=== PATIENT | female | born 1960 | race African-American/Black ===

== ENCOUNTER 2016-03-17 04:47 | Emergency (ER) | payer OTHER ==
[~2016-03-17] VITALS: Ht 167.6 cm; Wt 127.0 kg
[~2016-03-17 04:47] MED LIST: IBUPROFEN600 MG ORAL
[2016-03-17] MEDS ORDERED: ALBUTEROL2.5 MG/3 M INH (04:57)
[2016-03-17 05:00] VITALS: BP 130/82
[2016-03-17] MEDS ORDERED: Bacitracin Oint UD TOPIC ONE (05:15)
[2016-03-17] MEDS ORDERED: TdaP Vaccine 0.5ml Syr IM ONE (05:15)
[2016-03-17] MEDS ORDERED: DOXYCYCLINE MO100 MG ORAL (05:27)
[2016-03-17] MEDS ORDERED: IBUPROFEN600 MG ORAL (05:27)
--- NOTE | 2016-03-17 05:27 | Emergency Room Report ---
History of Present Illness General Chief Complaint: Laceration Source: Patient Present Illness HPI This is a 55-year-old female presents with laceration to the right foot. She was helping her friend out with putting Orajel in the mouth. She was walking across the floor and her foot slipped on the laminate floor. For some reason there was a nail sticking out and she sustained a puncture wound to the sole of the foot. It was bleeding. Tender to walking. No other complaint. No foreign body. Allergies: Coded Allergies: No Known Allergies (Unverified , 03/17/16) Patient History Past Medical History: see triage record, old chart reviewed Past Surgical History: other Pertinent Family History: none Social History: Denies: drug use Last Menstrual Period: n/a Now: No Immunizations: other Reviewed Nursing Documentation: PMH: Agreed, PSxH: Agreed Nursing Documentation-PMH Past Medical History: No History, Except For Hx Hypertension: Yes Hx Asthma: Yes Review of Systems Eye: Denies: blurred vision, eye pain ENT: Denies: ear pain, nose congestion, throat swelling Respiratory: Denies: cough, shortness of breath Cardiovascular: Denies: chest pain, palpitations Gastrointestinal: Denies: abdominal pain, diarrhea, nausea, vomiting Musculoskeletal: Denies: back pain, joint pain Skin: Denies: rash Neurological: Denies: headache, numbness Endocrine: Denies: increased thirst, increased urine Hematologic/Lymphatic: Denies: easy bruising All Other Systems: negative except mentioned in HPI Physical Exam Vital Signs Date Time Temp Pulse Resp B/P Pulse Ox O2 Delivery O2 Flow Rate FiO2 03/17/16 04:48 97.3 99 16 133/85 99 Room Air vitals normal Sp02 EP Interpretation: reviewed, normal General Appearance: well appearing, no apparent distress, alert Head: normocephalic, atraumatic Eyes: bilateral eye EOMI, bilateral eye PERRL ENT: hearing grossly normal, normal pharynx Neck: full range of motion, supple, no meningismus Respiratory: chest non-tender, lungs clear, normal breath sounds Cardiovascular #1: regular rate, rhythm, no murmur Gastrointestinal: normal bowel sounds, non tender, no mass, no organomegaly, no bruit, non-distended Musculoskeletal: back normal, normal range of motion, other - Puncture wound to the sole of the right foot over the ball. No foreign body. No active bleeding. Neurologic: alert, oriented x3 Psychiatric: mood/affect normal Skin: warm/dry Medical Decision Making Diagnostic Impression: Primary Impression: Puncture wound of foot, right Qualified Codes: S91.331A - Puncture wound without foreign body, right foot, initial encounter Additional Impression: Morbid obesity with BMI of 50.0-59.9, adult ER Course Patient present as with a puncture wound to the sole of her right foot. She was walking barefoot when this happened. Increased risk for infection. We'll put on antibiotics. Tetanus updated. No foreign body. No tendon laceration. Last Vital Signs Date Time Temp Pulse Resp B/P Pulse Ox O2 Delivery O2 Flow Rate FiO2 03/17/16 04:48 97.3 99 16 133/85 99 Room Air Status: improved Disposition: HOME, SELF-CARE Condition: Stable Scripts Doxycycline Monohydrate* (DOXYCYCLINE MONOHYDRATE*) 100 Mg Capsule 100 MG ORAL Q12H, #14 CAP 0 Refills Prov: MAGGIE BURRELL M.D. 03/17/16 Ibuprofen* (MOTRIN*) 600 Mg Tablet 600 MG ORAL THREE TIMES A DAY, #30 TAB 0 Refills Prov: MAGGIE BURRELL M.D. 03/17/16 Patient Instructions: Nonsutured Laceration Care Additional Instructions: Keep the wound clean. Followup with your DrAniya in 7 days. Return if symptom worsen. MAGGIE BURRELL M.D. Mar 17, 2016 05:27
[2016-03-17 05:45] VITALS: BP 130/82
== END 2016-03-17 05:45 | disposition home or self-care (01) ==
LOC: EMR 05:15
DX: S91.331A Puncture wound without foreign body, right foot, initial encounter (principal); W01.0XXA Fall on same level from slipping, tripping and stumbling without subsequent striking against object, initial encounter; Y92.89 Other specified places as the place of occurrence of the external cause; Z23 Encounter for immunization; E66.01 Morbid (severe) obesity due to excess calories; Z68.42 Body mass index [BMI] 45.0-49.9, adult; I10 Essential (primary) hypertension; J45.909 Unspecified asthma, uncomplicated
CPT/HCPCS: 90471; 90715; 99284

== ENCOUNTER 2016-04-14 14:28 | Emergency (ER) | payer OTHER ==
[~2016-04-14] VITALS: Ht 170.2 cm; Wt 127.0 kg
[~2016-04-14 14:28] MED LIST changes: +ALBUTEROL2.5 MG/3 M INH; +DOXYCYCLINE MO100 MG ORAL
[2016-04-14 14:52] VITALS: BP 142/94
--- NOTE | 2016-04-14 15:29 | Emergency Room Report ---
History of Present Illness General Chief Complaint: Wound Recheck/Suture Removal Source: Medical Record Present Illness HPI 55 YO female presents to the ED c/o Foot puncture wound x 1 month that has not healed, with continued pain. pain is 10/10 in severity and exacerbated with walking. Patient denies new injury or trauma. Patient denies history of diabetes. Patient denies bleeding, erythema or discharge. Patient is up-to- date with tetanus vaccination.Denies numbness tingling or loss of sensation or gross motor movements of the extremities, incontinence of bowel or bladder. Denies CP, Palpitations, LOC, AMS, dizziness, Changes in Vision, Sensation, paresthesias, or a sudden severe headache. Allergies: Coded Allergies: No Known Allergies (Unverified , 03/17/16) Patient History Past Medical History: see triage record Past Surgical History: none Pertinent Family History: none Now: No Immunizations: UTD Reviewed Nursing Documentation: PMH: Agreed, PSxH: Agreed Nursing Documentation-PMH Past Medical History: No History, Except For Hx Hypertension: Yes Hx Asthma: Yes Review of Systems All Other Systems: negative except mentioned in HPI Physical Exam Vital Signs Date Time Temp Pulse Resp B/P Pulse Ox O2 Delivery O2 Flow Rate FiO2 04/14/16 14:40 97.5 126 21 142/94 96 Room Air Sp02 EP Interpretation: reviewed, normal General Appearance: no apparent distress, alert, GCS 15, non-toxic Head: normocephalic, atraumatic Eyes: bilateral eye PERRL, bilateral eye normal inspection ENT: hearing grossly normal, normal pharynx, no angioedema, normal voice Neck: full range of motion, supple/symm/no masses Respiratory: chest non-tender, lungs clear, normal breath sounds, speaking full sentences Cardiovascular #1: regular rate, rhythm, no edema Musculoskeletal: back normal, gait/station normal, normal range of motion, no calf tenderness, tender - TTP to plantar aspect of right foot. Neurologic: alert, oriented x3, responsive, motor strength/tone normal, sensory intact, speech normal Psychiatric: judgement/insight normal, memory normal, mood/affect normal, no suicidal/homicidal ideation Skin: normal color, no rash, warm/dry, well hydrated, other - puncture wound with scar tissue formation with possible retained fb. no d/c, no erythema noted. moderate ttp. palpable induration approximately 1cm in size Lymphatic: no adenopathy Procedures Incision and Drainage Incision and Drainage : Consent: Verbal Site: plantar aspect of the right foot Blade Size: 11 I & D Procedure: betadine prep Wound Location: lower extremity - right foot Wound's Depth, Shape: superficial Wound Length (cm): 1 Wound Explored: foreign body removed - 1.3 cm triangular piece of glass was removed Irrigated w/ Saline (ccs): 40 Splint Applied?: No Sling Applied?: No Patient Tolerated: Well Complications: None Progress BACITRACIN WAS APPLIED WITH STERILE DRESSING, PT PROVIDED WITH CRUTCHES. Medical Decision Making PA Attestation Dr. Wilson is my supervising Physician whom patient management has been discussed with. Diagnostic Impression: Primary Impression: Residual foreign body in soft tissue ER Course Pt. presents to the ED c/o Foot puncture wound x 1 month that has not healed, with continued pain. Ddx considered but are not limited to Ulcer, FB, puncture wound, cellulitis Vital signs: are WNL, pt. is afebrile H&PE are most consistent with retained soft tissue FB. ORDERS: - X-ray right foot 2 views - negative for fx, Dislocation, or significant soft tissue injury, POSITIVE for obvious FB- per preliminary read in ED by Dr. Wilson ED INTERVENTIONS: - 7.5mg [place] PO - FB Removal: 1.3 cm triangular piece of glass was removed. pt. tolerated well, there were no complications. -Bacitracin and sterile dressing is applied. - Pt is provided with crutches. DISCHARGE: At this time pt. is stable for d/c to home. Will provide printed patient care instructions, and any necessary prescriptions. Care plan and follow up instructions have been discussed with the patient prior to discharge. Last Vital Signs Date Time Temp Pulse Resp B/P Pulse Ox O2 Delivery O2 Flow Rate FiO2 04/14/16 14:52 97.5 126 21 142/94 96 Room Air Disposition: HOME, SELF-CARE Condition: Stable Scripts Acetaminophen* (TYLENOL EXTRA STRENGTH*) 500 Mg Tablet 500 MG ORAL Q8H, #30 TAB 0 Refills Prov: Ghada Wakefield P.A. 04/14/16 Cephalexin* (KEFLEX*) 500 Mg Capsule 500 MG ORAL EVERY 12 HOURS for 7 Days, #14 CAP 0 Refills Prov: Ghada Wakefield P.A. 04/14/16 Referrals: IVON BURT (PCP) Patient Instructions: Sliver Removal, Care After Additional Instructions: Take medications as directed. Follow up with PCP in 3-5 days Return sooner to ED if new symptoms occur, or current symptoms become worse. Ghada Wakefield Apr 14, 2016 15:29
[2016-04-14] MEDS ORDERED: Norco 7.5mg/325mg tab ORAL ONE (16:00)
[2016-04-14] MEDS ORDERED: Bacitracin Oint UD TOPIC ONE (16:15)
[2016-04-14] MEDS ORDERED: CEPHALEXIN500 MG ORAL (16:16)
[2016-04-14] MEDS ORDERED: TYLENOL EXTRA500 MG ORAL (16:16)
[2016-04-14 16:30] VITALS: BP 105/75
--- NOTE | 2016-04-14 16:31 | Diagnostic Imaging Report ---
Indication: PAIN Technique: 3 views right foot Comparison: none Findings: Wedge-shaped foreign body is seen dorsal and medial to the neck of the second metatarsal. No evidence of bony destruction. No acute fractures. No dislocations the joint spaces are preserved. Impression: Positive for foreign body Findings phoned to nurse practitioner Ghada Wakefield in the emergency room at the time of interpretation
== END 2016-04-14 16:30 | disposition home or self-care (01) ==
LOC: EMR 15:20
DX: M79.5 Residual foreign body in soft tissue (principal); I10 Essential (primary) hypertension; J45.909 Unspecified asthma, uncomplicated
CPT/HCPCS: 99284

== ENCOUNTER 2016-05-27 18:06 | Emergency (ER) | payer OTHER ==
[~2016-05-27] VITALS: Ht 170.2 cm; Wt 127.0 kg
[~2016-05-27 18:06] MED LIST changes: +CEPHALEXIN500 MG ORAL; +TYLENOL EXTRA500 MG ORAL
[2016-05-27 18:44] VITALS: BP 135/39
[2016-05-27 19:35] LABS: BASOPHILS % (AUTO) 1.6 % (0.0-2.0); EOSINOPHILS % (AUTO) 1.9 % (0.0-3.0); LYMPHOCYTES % (AUTO) 24.8 % (20.0-45.0); MEAN CORPUSCULAR HEMOGLOBIN 29.2 PG (27.0-31.0); MEAN CORPUSCULAR HGB CONC 34.1 G/DL (32.0-36.0); MEAN CORPUSCULAR VOLUME 86 FL (80-99); MEAN PLATELET VOLUME 8.8 FL (6.5-10.1); MONOCYTES % (AUTO) 9.2 % (1.0-10.0); NEUTROPHILS % (AUTO) 62.5 % (45.0-75.0); PLATELET COUNT 171 K/UL (150-450); RED BLOOD COUNT 4.73 M/UL (4.20-5.40); RED CELL DISTRIBUTION WIDTH 12.6 % (11.6-14.8); WHITE BLOOD COUNT 7.9 K/UL (4.8-10.8)
[2016-05-27 19:54] LABS: ALANINE AMINOTRANSFERASE 26 U/L (3-33); ALBUMIN/GLOBULIN RATIO 0.9 (1.0-2.7); ANION GAP 14 (5-15); ASPARTATE AMINO TRANSFERASE 29 U/L (5-40); CALCIUM 8.8 mg/dL (8.6-10.2); CARBON DIOXIDE 25 mEQ/L (20-30); CHLORIDE 99 mEQ/L (98-107); CREATININE 1.1 mg/dL (0.5-0.9); GLOMERULAR FILTRATION RATE > 60 mL/min (>60); HEMOLYSIS 8; POTASSIUM 4.1 mEQ/L (3.4-4.9); SODIUM 138 mEQ/L (135-145); TOTAL PROTEIN 8.4 g/dL (6.6-8.7); TROPONIN I < 0.30 ng/mL (<=0.30)
--- NOTE | 2016-05-27 19:54 | Emergency Room Report ---
History of Present Illness General Chief Complaint: General Complaint Source: Patient Present Illness HPI Patient is a 55-year-old female who presented after having increased difficulty breathing and altered mental status. The patient gradual onset of symptoms. The patient was noted to haveNonproductive cough. Patient states that she had been having some difficulty swallowing. Allergies: Coded Allergies: No Known Allergies (Unverified , 03/17/16) Patient History Last Menstrual Period: 04/17/16 Now: No Reviewed Nursing Documentation: PMH: Agreed, PSxH: Agreed Nursing Documentation-PMH Past Medical History: No History, Except For Hx Hypertension: Yes Hx Asthma: Yes Review of Systems All Other Systems: negative except mentioned in HPI Physical Exam Vital Signs Date Time Temp Pulse Resp B/P Pulse Ox O2 Delivery O2 Flow Rate FiO2 05/27/16 18:22 98.4 120 30 135/39 96 Room Air Sp02 EP Interpretation: reviewed, normal General Appearance: normal inspection, alert, mild distress, obese Head: atraumatic ENT: normal ENT inspection, hearing grossly normal, normal voice Neck: normal inspection, full range of motion, supple, no bony tend Respiratory: no retraction, accessory muscle use, wheezing Cardiovascular #1: regular rate, rhythm, no edema Gastrointestinal: normal inspection, normal bowel sounds, non tender, soft, no guarding, no hernia Genitourinary: no CVA tenderness Musculoskeletal: normal inspection, back normal, normal range of motion Neurologic: normal inspection, alert, responsive, other - slow speech Psychiatric: normal inspection, judgement/insight normal, mood/affect normal Skin: normal inspection, normal color, no rash Medical Decision Making Diagnostic Impression: Primary Impression: Viral respiratory illness Additional Impressions: Tachycardia Dehydration ER Course Patient presented for altered mental status. Differential diagnosis included but was not limited to ischemic stroke, subarachnoid hemorrhage, hypoglycemia, spinal cord injury, neurodegenerative disorder, urinary tract infection, hypoxemia.Because of complexity of patient's case laboratory testing and imaging studies were ordered. Laboratory testing showed some evidence of urinary tract infection. The patient noted to have a rapid respiratory rate.The patient was noted to have chest x-ray one view interpreted by me with hypoventilatory film. There is no definite infiltrate. Laboratory testing was notable for normal white blood count. The patient was discussed with Dr. sheldon WHITAKER who agreed to see the patient transfer to [facility] patient gradual improvement in her mental status while in emergency department. At the time of transfer patient appeared to be able to maintain her own airway patient was noted to have some improvement in her mental status and was able to talk normally. Labs Test 05/27/16 19:02 05/27/16 20:08 White Blood Count 7.9 K/UL (4.8-10.8) Red Blood Count 4.73 M/UL (4.20-5.40) Hemoglobin 13.8 G/DL (12.0-16.0) Hematocrit 40.6 % (37.0-47.0) Mean Corpuscular Volume 86 FL (80-99) Mean Corpuscular Hemoglobin 29.2 PG (27.0-31.0) Mean Corpuscular Hemoglobin Concent 34.1 G/DL (32.0-36.0) Red Cell Distribution Width 12.6 % (11.6-14.8) Platelet Count 171 K/UL (150-450) Mean Platelet Volume 8.8 FL (6.5-10.1) Neutrophils (%) (Auto) 62.5 % (45.0-75.0) Lymphocytes (%) (Auto) 24.8 % (20.0-45.0) Monocytes (%) (Auto) 9.2 % (1.0-10.0) Eosinophils (%) (Auto) 1.9 % (0.0-3.0) Basophils (%) (Auto) 1.6 % (0.0-2.0) Sodium Level 138 mEQ/L (135-145) Potassium Level 4.1 mEQ/L (3.4-4.9) Chloride Level 99 mEQ/L (98-107) Carbon Dioxide Level 25 mEQ/L (20-30) Anion Gap 14 (5-15) Blood Urea Nitrogen 13 mg/dL (7-23) Creatinine 1.1 mg/dL (0.5-0.9) Estimat Glomerular Filtration Rate > 60 mL/min (>60) Glucose Level 96 mg/dL (74-106) Lactic Acid Level 1.20 mmol/L (0.66-2.22) Calcium Level 8.8 mg/dL (8.6-10.2) Total Bilirubin 0.3 mg/dL (0.0-1.2) Aspartate Amino Transf (AST/SGOT) 29 U/L (5-40) Alanine Aminotransferase (ALT/SGPT) 26 U/L (3-33) Alkaline Phosphatase 108 U/L (35-104) Total Creatine Kinase 140 U/L (26-140) Creatine Kinase MB < 1.5 ng/mL (< 3.8) Creatine Kinase MB Relative Index 1.0 Troponin I < 0.30 ng/mL (<=0.30) Pro-B-Type Natriuretic Peptide 17 pg/mL (0-125) Total Protein 8.4 g/dL (6.6-8.7) Albumin 4.1 g/dL (3.5-5.2) Globulin 4.3 g/dL Albumin/Globulin Ratio 0.9 (1.0-2.7) Serum Alcohol < 10 mg/dL Urine Color Yellow Urine Appearance Slightly cloudy Urine pH 6 (4.5-8.0) Urine Specific [place] 1.020 (1.005-1.035) Urine Protein 1+ (NEGATIVE) Urine Glucose (UA) Negative (NEGATIVE) Urine Ketones Negative (NEGATIVE) Urine Occult Blood 2+ (NEGATIVE) Urine Nitrite Negative (NEGATIVE) Urine Bilirubin Negative (NEGATIVE) Urine Urobilinogen 1 MG/DL (0.0-1.0) Urine Leukocyte Esterase 1+ (NEGATIVE) Urine RBC 2-4 /HPF (0 - 2) Urine WBC 2-4 /HPF (0 - 2) Urine Squamous Epithelial Cells Moderate /LPF (NONE/OCC) Urine Bacteria None /HPF (NONE) Urine Mucus Few /LPF (NONE/OCC) Urine Opiates Screen Negative (NEGATIVE) Urine Barbiturates Screen Negative (NEGATIVE) Phencyclidine (PCP) Screen Negative (NEGATIVE) Urine Amphetamines Screen Negative (NEGATIVE) Urine Benzodiazepines Screen Positive (NEGATIVE) Urine Cocaine Screen Negative (NEGATIVE) Urine Marijuana (THC) Screen Negative (NEGATIVE) EKG Diagnostic Results Rate: tachycardiac - 114 ST Segments: no acute changes Chest X-Ray Diagnostic Results EP Interpretation: Yes Findings: no consolidation, no effusion, no pneumothorax, no acute cardiopulmonary disease Number of Views: 1 Last Vital Signs Date Time Temp Pulse Resp B/P Pulse Ox O2 Delivery O2 Flow Rate FiO2 05/27/16 18:44 118 30 135/39 96 Room Air 05/27/16 18:22 98.4 Status: improved [facility] Condition: Stable Referrals: KRISTI MERINO (PCP) Reynaldo Wilson May 27, 2016 19:53
[2016-05-27 20:05] LABS: CKMB < 1.5 ng/mL (< 3.8)
[2016-05-27 20:12] VITALS: BP 135/78
[2016-05-27 20:32] LABS: APPEARANCE,URINE SLIGHTLY CLOUDY; KETONES,URINE NEGATIVE (NEGATIVE); LEUKOCYTE ESTERASE ,URINE 1+ (NEGATIVE); NITRITE,URINE NEGATIVE (NEGATIVE); PH,URINE 6 (4.5-8.0); PROTEIN,URINE 1+ (NEGATIVE); UROBILINOGEN,URINE 1 MG/DL (0.0-1.0)
[2016-05-27 20:46] LABS: MUCUS,URINE FEW /LPF (NONE/OCC); SQUAMOUS EPITHELIAL CELL,UR MODERATE /LPF (NONE/OCC)
[2016-05-27 21:27] VITALS: BP 147/74
[2016-05-27 22:16] VITALS: BP 137/88
[2016-05-28 00:16] VITALS: BP 141/85
[2016-05-28] MEDS ORDERED: Albuterol ud Inhalation HHN ONE (02:30)
[2016-05-28 02:41] VITALS: BP 140/81
[2016-05-28 04:41] VITALS: BP 136/68
[2016-05-28 06:41] VITALS: BP 141/71
[2016-05-28 07:30] VITALS: BP 136/76
[2016-05-28 08:05] VITALS: BP 136/76
--- NOTE | 2016-05-28 11:15 | Diagnostic Imaging Report ---
Indication: Dyspnea Comparison: None A single view chest radiograph was obtained. Findings: No definite infiltrate or pulmonary vascular congestion identified. The heart is enlarged. The aorta is mildly enlarged consistent with atherosclerotic vascular disease. The bones are osteopenic. Impression: No acute disease
--- NOTE | 2016-05-30 11:33 | Cardiology Report ---
APPROVED REPORT EKG Measurement Heart [id number] Sinus tachycardia Cannot rule out Anterior infarct, age undetermined Abnormal ECG
== END 2016-05-28 08:05 | disposition short-term general hospital (02) ==
LOC: EMR 18:37
DX: R00.0 Tachycardia, unspecified (principal); B34.9 Viral infection, unspecified; E86.0 Dehydration; I10 Essential (primary) hypertension; J45.909 Unspecified asthma, uncomplicated
CPT/HCPCS: 36415; 71010; 80053; 80300; 81003; 82550; 82553; 83605; 83880; 84484; 85025; 87040; 93005; 94640; 94664; 96360; 99285; G0480; 80329; 96372; 99284

== ENCOUNTER 2016-07-07 15:39 | Emergency (ER) | payer OTHER ==
[~2016-07-07] VITALS: Ht 167.6 cm; Wt 131.5 kg
[2016-07-07 16:57] LABS: BASOPHILS % (AUTO) 2.2 % (0.0-2.0); LYMPHOCYTES % (AUTO) 38.1 % (20.0-45.0); MEAN CORPUSCULAR HEMOGLOBIN 30.4 PG (27.0-31.0); MEAN CORPUSCULAR HGB CONC 35.9 G/DL (32.0-36.0); MEAN CORPUSCULAR VOLUME 85 FL (80-99); MEAN PLATELET VOLUME 8.5 FL (6.5-10.1); MONOCYTES % (AUTO) 6.4 % (1.0-10.0); NEUTROPHILS % (AUTO) 50.3 % (45.0-75.0); PLATELET COUNT 181 K/UL (150-450); RED CELL DISTRIBUTION WIDTH 12.6 % (11.6-14.8); WHITE BLOOD COUNT 5.5 K/UL (4.8-10.8)
[2016-07-07 17:23] LABS: CALCIUM 8.9 mg/dL (8.6-10.2); CREATININE 1.2 mg/dL (0.5-0.9); GLOMERULAR FILTRATION RATE 56.1 mL/min (>60); POTASSIUM 4.1 mEQ/L (3.4-4.9); TOTAL PROTEIN 7.9 g/dL (6.6-8.7); TROPONIN I < 0.30 ng/mL (<=0.30)
[2016-07-07 17:34] LABS: CKMB < 1.5 ng/mL (< 3.8)
--- NOTE | 2016-07-07 18:01 | Emergency Room Report ---
History of Present Illness General Chief Complaint: Edema Source: Patient Present Illness HPI She 5-year-old female presents emergency department complaining of right lateral lower extremity swelling x3 weeks. Patient also reports left thigh/ inguinal area pain x3 days. Patient states she recently began water aerobics and noticed the pain while on the treadmill and she had to leave her class early. Patient states pain is exacerbated with specific movements it is not constant she rates her pain as 5/10 in severity and describes sore achy in character. She denies calf pain she reports some mild medial ankle pain bilaterally denies trauma or fall. Denies erythema, fevers chills nausea vomiting, chest pain. Patient reports recent pneumonia last month. Denies cough. She reports intermittent shortness of breath and states she is normally sedentary other than recently beginning water aerobics 3 days ago. Patient denies recent travel or estrogen replacement. pmhx of glaucoma, and herniated disks in the back, denies HTN, cardiac hx. Denies numbness tingling or loss of sensation or gross motor movements of the extremities, incontinence of bowel or bladder. Denies CP, Palpitations, LOC, AMS, dizziness, Changes in Vision, Sensation, paresthesias, or a sudden severe headache. Allergies: Coded Allergies: No Known Allergies (Unverified , 03/17/16) Patient History Past Medical History: see triage record Past Surgical History: none Pertinent Family History: none Now: No Immunizations: UTD Reviewed Nursing Documentation: PMH: Agreed, PSxH: Agreed Nursing Documentation-PM Past Medical History: No History, Except For Hx Hypertension: Yes Hx Asthma: Yes Review of Systems All Other Systems: negative except mentioned in HPI Physical Exam Vital Signs Date Time Temp Pulse Resp B/P Pulse Ox O2 Delivery O2 Flow Rate FiO2 07/07/16 16:03 97.5 112 20 120/72 95 Room Air Sp02 EP Interpretation: reviewed, normal, abnormal - tachycardic at 112 General Appearance: no apparent distress, alert, GCS 15, non-toxic Head: normocephalic, atraumatic Eyes: bilateral eye PERRL, bilateral eye normal inspection ENT: hearing grossly normal, normal pharynx, no angioedema, normal voice Neck: full range of motion, supple/symm/no masses Respiratory: chest non-tender, lungs clear, normal breath sounds, speaking full sentences Cardiovascular #1: regular rate, rhythm, normal capillary refill, tachycardia, edema - 1+ bilateral pedal edema, Cardiovascular #2: 2+ dorsalis pedis (R), 2+ dorsalis pedis (L) Rectal: deferred Genitourinary: adnexa normal Musculoskeletal: back normal, gait/station normal, normal range of motion, no calf tenderness, tender - proximal left thigh ttp, no appreciable inguinal ttp, pain exacerbated with FROM against resistance. no appreciable medial ankle ttp, no erythema, 1+ pitting edema bilaterally. good capillary refill Neurologic: alert, oriented x3, responsive, motor strength/tone normal, sensory intact, speech normal Psychiatric: judgement/insight normal, memory normal, mood/affect normal, no suicidal/homicidal ideation Skin: normal color, no rash, warm/dry, well hydrated Lymphatic: no adenopathy Medical Decision Making PA Attestation Dr. pollard is my supervising Physician whom patient management has been discussed with. Diagnostic Impression: Primary Impression: Peripheral edema Additional Impression: Muscle strain ER Course She 5-year-old female presents emergency department complaining of right lateral lower extremity swelling x3 weeks. Patient also reports left thigh/ inguinal area pain x3 days. Patient states she recently began water aerobics and noticed the pain while on the treadmill and she had to leave her class early. Patient states pain is exacerbated with specific movements it is not constant she rates her pain as 5/10 in severity and describes sore achy in character. She denies calf pain she reports some mild medial ankle pain bilaterally denies trauma or fall. Denies erythema, fevers chills nausea vomiting, chest pain. Patient reports recent pneumonia last month. Denies cough. She reports intermittent shortness of breath and states she is normally sedentary other than recently beginning water aerobics 3 days ago. Patient denies recent travel or estrogen replacement. pmhx of glaucoma, and herniated disks in the back, denies HTN, cardiac hx. Ddx considered but are not limited to DVT, Cellulitis, CHF, lymphedema, circulatory compromise, peripheral edema, musculo-skeletal injury Vital signs: pt afebrile, however tachycardic. - review of previous visits to the ED pt. is consistently tachycardic. H&PE are most consistent with benign pedal edema and muscle strain. will consider CHF - pt. does not have Cardic RF other than being sedentary/overweight -Good circulation on PE. - Pt. has wells criteria of Zero. ORDERS: -CBC: unremarkable -CMP: unremarkable -Troponin: negative -CK : elevated 221 -CK-MB: unremarkable -BNP: WNL ED INTERVENTIONS: -d/w pt. results of laboratory testing. I do not suspect an emergent condition at this time. with current presentation pt. is stable for close outpatient follow up. D/w pt. that i will rx compression stockings, conservative treatment for muscle strain, and to follow up with her PCP, and to return to ED with new or worsening of symptoms. DISCHARGE: At this time pt. is stable for d/c to home. Will provide printed patient care instructions, and any necessary prescriptions. Care plan and follow up instructions have been discussed with the patient prior to discharge. Labs Test 07/07/16 16:37 White Blood Count 5.5 K/UL (4.8-10.8) Red Blood Count 4.20 M/UL (4.20-5.40) Hemoglobin 12.8 G/DL (12.0-16.0) Hematocrit 35.5 % (37.0-47.0) Mean Corpuscular Volume 85 FL (80-99) Mean Corpuscular Hemoglobin 30.4 PG (27.0-31.0) Mean Corpuscular Hemoglobin Concent 35.9 G/DL (32.0-36.0) Red Cell Distribution Width 12.6 % (11.6-14.8) Platelet Count 181 K/UL (150-450) Mean Platelet Volume 8.5 FL (6.5-10.1) Neutrophils (%) (Auto) 50.3 % (45.0-75.0) Lymphocytes (%) (Auto) 38.1 % (20.0-45.0) Monocytes (%) (Auto) 6.4 % (1.0-10.0) Eosinophils (%) (Auto) 3.0 % (0.0-3.0) Basophils (%) (Auto) 2.2 % (0.0-2.0) Sodium Level 139 mEQ/L (135-145) Potassium Level 4.1 mEQ/L (3.4-4.9) Chloride Level 97 mEQ/L (98-107) Carbon Dioxide Level 26 mEQ/L (20-30) Anion Gap 16 (5-15) Blood Urea Nitrogen 15 mg/dL (7-23) Creatinine 1.2 mg/dL (0.5-0.9) Estimat Glomerular Filtration Rate 56.1 mL/min (>60) Glucose Level 98 mg/dL (74-106) Calcium Level 8.9 mg/dL (8.6-10.2) Total Bilirubin 0.3 mg/dL (0.0-1.2) Aspartate Amino Transf (AST/SGOT) 31 U/L (5-40) Alanine Aminotransferase (ALT/SGPT) 25 U/L (3-33) Alkaline Phosphatase 79 U/L (35-104) Total Creatine Kinase 221 U/L (26-140) Creatine Kinase MB < 1.5 ng/mL (< 3.8) Creatine Kinase MB Relative Index 0.6 Troponin I < 0.30 ng/mL (<=0.30) Pro-B-Type Natriuretic Peptide 66 pg/mL (0-125) Total Protein 7.9 g/dL (6.6-8.7) Albumin 4.1 g/dL (3.5-5.2) Globulin 3.8 g/dL Albumin/Globulin Ratio 1.0 (1.0-2.7) Last Vital Signs Date Time Temp Pulse Resp B/P Pulse Ox O2 Delivery O2 Flow Rate FiO2 07/07/16 16:15 105 15 Room Air 07/07/16 16:03 97.5 120/72 95 Disposition: HOME, SELF-CARE Condition: Stable Scripts Compression Socks, Medium (FUTURO RESTORING) 1 Each Each 1 EACH , #1 Prov: Ghada Wakefield 07/07/16 Ibuprofen* (MOTRIN*) 600 Mg Tablet 600 MG ORAL THREE TIMES A DAY, #30 TAB 0 Refills Prov: Ghada Wakefield 07/07/16 Referrals: [facility],REFERRING (PCP) Patient Instructions: Edema, [id number], Peripheral Edema Additional Instructions: Take medications as directed. Follow up with PCP in 3-5 days Return sooner to ED if new symptoms occur, or current symptoms become worse. - Please note that this Emergency Department Report was dictated using [employer] stainer technology software, occasionally this can lead to erroneous entry secondary to interpretation by the dictation equipment. Ghada Wakefield Jul 07, 2016 18:01
[2016-07-07] MEDS ORDERED: IBUPROFEN600 MG ORAL (18:04)
[2016-07-07] MEDS ORDERED: FUTURO RESTORI1 EACH MC (18:04)
[2016-07-07 18:11] VITALS: BP 118/80
--- NOTE | 2016-07-08 09:37 | Diagnostic Imaging Report ---
Indication: COUGH Technique: One view of the chest Comparison: 05/27/2016 Findings: Lungs and pleural spaces are clear. Heart size is upper limits normal. Inspiration is better on the current exam. No significant change otherwise Impression: No acute process
== END 2016-07-07 18:13 | disposition home or self-care (01) ==
LOC: EMR 16:35
DX: R60.0 Localized edema (principal); S76.812A Strain of other specified muscles, fascia and tendons at thigh level, left thigh, initial encounter; X58.XXXA Exposure to other specified factors, initial encounter; Y92.9 Unspecified place or not applicable; I10 Essential (primary) hypertension; J45.909 Unspecified asthma, uncomplicated
CPT/HCPCS: 36415; 71010; 80053; 82550; 82553; 83880; 84484; 85025; 99284

== ENCOUNTER 2017-01-10 20:23 | Emergency (ER) | payer MEDICARE, OTHER ==
[~2017-01-10] VITALS: Ht 167.6 cm; Wt 127.0 kg
[~2017-01-10 20:23] MED LIST changes: +FUTURO RESTORI1 EACH MC
[2017-01-10] MEDS ORDERED: Ketorolac 60mg Inj IM ONE (20:30)
[2017-01-10] MEDS ORDERED: Norco 5mg/325mg tab ORAL ONE (20:30)
[2017-01-10 20:36] VITALS: BP 145/74
--- NOTE | 2017-01-10 20:43 | Emergency Room Report ---
History of Present Illness General Chief Complaint: Multiple Trauma/Fall Source: Patient Present Illness HPI Patient presents with complaints of body pain she was sitting on a chair approximately 5:00 this afternoon at a car wash The chair gave out and the patient ended up falling to the ground Has pain in the upper chest area lower back Patient complains of pain in the upper legs left knee left arm Denies any loss of consciousness Denies any vomiting Pain is 6/10 diffuse Allergies: Coded Allergies: No Known Allergies (Unverified , 03/17/16) Patient History Past Medical History: see triage record Pertinent Family History: none Now: No Reviewed Nursing Documentation: PMH: Agreed, PSxH: Agreed Nursing Documentation-PMH Hx Hypertension: Yes Hx Asthma: Yes Review of Systems All Other Systems: negative except mentioned in HPI Physical Exam Vital Signs Date Time Temp Pulse Resp B/P (MAP) Pulse Ox O2 Delivery O2 Flow Rate FiO2 01/10/17 20:33 98.1 114 24 145/74 100 Room Air Sp02 EP Interpretation: reviewed, normal General Appearance: no apparent distress Head: normocephalic, atraumatic Eyes: bilateral eye PERRL, bilateral eye EOMI ENT: normal pharynx, no angioedema Neck: other - Uncomfortable paraspinal area no midline step offs Respiratory: lungs clear, normal breath sounds Cardiovascular #1: normal peripheral pulses, regular rate, rhythm Gastrointestinal: normal bowel sounds, non tender, soft Musculoskeletal: other - Patient is uncomfortable on palpation diffusely including the paraspinal lower back region L3-4-5, palpation of bilateral legs and left knee, patient however ambulate without any focal deficit no obvious ecchymosis or bruising, , Neurologic: alert, oriented x3 Skin: no rash, warm/dry Lymphatic: normal inspection Medical Decision Making Diagnostic Impression: Primary Impression: Multiple injuries due to trauma ER Course Given the patient's phone complaints imaging study was obtained patient is otherwise ambulatory No signs of any focal deficit I did not full other lower extremity imaging was required emergently Patient's chest x-ray is appropriate she has done well throughout her stay and is appropriate for close followup Chest X-Ray Diagnostic Results Chest X-Ray Diagnostic Results : Chest X-Ray Ordered: Yes # of Views/Limited/Complete: 1 View Indication: Chest Pain EP Interpretation: Yes Interpretation: no consolidation, no effusion, no pneumothorax, other Impression: No acute disease Electronically Signed by: Nohemi Mixon DO Last Vital Signs Date Time Temp Pulse Resp B/P (MAP) Pulse Ox O2 Delivery O2 Flow Rate FiO2 01/10/17 20:36 98.1 112 24 145/74 100 Room Air Status: improved Disposition: HOME, SELF-CARE Condition: Improved Additional Instructions: Patient is provided with the discharge instructions notified to follow up with primary doctor in the next 2-3 days otherwise return to the er with any worsening symptoms. Please note that this report is being documented using [employer] technology. This can lead to erroneous entry secondary to incorrect interpretation by the dictating instrument. NOHEMI MIXON D.O. Jan 10, 2017 20:43
[2017-01-10] MEDS ORDERED: IBUPROFEN600 MG ORAL (21:15)
[2017-01-10] MEDS ORDERED: ROBAXIN-750750 MG PO (21:15)
[2017-01-10 21:26] VITALS: BP 147/66
--- NOTE | 2017-01-11 11:15 | Diagnostic Imaging Report ---
Indication: CP Technique: One view of the chest Comparison: none Findings: Lungs and pleural spaces are clear. Heart size is normal. Small band of atelectasis is seen in the right hilar region Impression: No acute process This agrees with the preliminary interpretation provided by the emergency room physician
== END 2017-01-10 21:29 | disposition home or self-care (01) ==
LOC: EMR 20:55
DX: S79.921A Unspecified injury of right thigh, initial encounter (principal); S79.922A Unspecified injury of left thigh, initial encounter; S89.92XA Unspecified injury of left lower leg, initial encounter; S39.92XA Unspecified injury of lower back, initial encounter; R07.9 Chest pain, unspecified; W07.XXXA Fall from chair, initial encounter; Y92.524 Gas station as the place of occurrence of the external cause; I10 Essential (primary) hypertension; J45.909 Unspecified asthma, uncomplicated
CPT/HCPCS: 71010; 96372; 99284

== ENCOUNTER 2017-01-15 04:58 | Emergency (ER) | payer MEDICARE ==
[~2017-01-15] VITALS: Ht 167.6 cm; Wt 127.0 kg
[~2017-01-15 04:58] MED LIST changes: +ROBAXIN-750750 MG PO
[2017-01-15] MEDS ORDERED: UNOBMED (05:07)
[2017-01-15] MEDS ORDERED: IBUPROFEN600 MG ORAL (05:17)
--- NOTE | 2017-01-15 05:18 | Emergency Room Report ---
History of Present Illness General Chief Complaint: Edema Source: Patient Present Illness HPI Is a 56-year-old female with no past medical history. She presents with chief complaint of swelling to her hands and feet. She said onset for last 3-4 days. No trauma. No fever chills denies nausea no vomiting. Denies any other complaint. No pain. Allergies: Coded Allergies: No Known Allergies (Unverified , 03/17/16) Patient History Past Medical History: see triage record, old chart reviewed Past Surgical History: other Pertinent Family History: none Social History: Denies: smoking Last Menstrual Period: n/a Now: No Immunizations: other Reviewed Nursing Documentation: PMH: Agreed, PSxH: Agreed Nursing Documentation-PMH Past Medical History: No History, Except For Hx Hypertension: Yes Hx Asthma: Yes Review of Systems Eye: Denies: eye pain, blurred vision ENT: Denies: ear pain, nose congestion, throat swelling Respiratory: Denies: cough, shortness of breath Cardiovascular: Denies: chest pain, palpitations Gastrointestinal: Denies: abdominal pain, diarrhea, nausea, vomiting Musculoskeletal: Denies: back pain, joint pain Skin: Denies: rash Neurological: Denies: headache, numbness Endocrine: Denies: increased thirst, increased urine Hematologic/Lymphatic: Denies: easy bruising All Other Systems: negative except mentioned in HPI Physical Exam Vital Signs Date Time Temp Pulse Resp B/P (MAP) Pulse Ox O2 Delivery O2 Flow Rate FiO2 01/15/17 05:02 98.1 107 16 133/87 95 Room Air vitals normal Sp02 EP Interpretation: reviewed, normal General Appearance: well appearing, no apparent distress, alert, obese Head: normocephalic, atraumatic Eyes: bilateral eye PERRL, bilateral eye EOMI ENT: hearing grossly normal, normal pharynx Neck: full range of motion, supple, no meningismus Respiratory: chest non-tender, lungs clear, normal breath sounds Cardiovascular #1: regular rate, rhythm, no murmur Gastrointestinal: normal bowel sounds, non tender, no mass, no organomegaly, no bruit, non-distended Musculoskeletal: back normal, gait/station normal, normal range of motion Psychiatric: mood/affect normal Skin: warm/dry Medical Decision Making Diagnostic Impression: Primary Impression: Peripheral edema ER Course Patient with complaint of peripheral edema. I do not appreciate any edema. There is no pitting edema. She has rings on on both hands. They were not tight at all. Last Vital Signs Date Time Temp Pulse Resp B/P (MAP) Pulse Ox O2 Delivery O2 Flow Rate FiO2 01/15/17 05:12 107 16 Room Air 01/15/17 05:02 98.1 133/87 95 Status: unchanged Disposition: HOME, SELF-CARE Condition: Stable Scripts Ibuprofen* (MOTRIN*) 600 Mg Tablet 600 MG ORAL Q8H Y for For Pain, #30 TAB 0 Refills Prov: MAGGIE BURRELL M.D. 01/15/17 Patient Instructions: Edema, [id number] Additional Instructions: Followup with your Dr. in 7 days. Return if symptom worsen. MAGGIE BURRELL M.D. Jan 15, 2017 05:18
[2017-01-15 05:25] VITALS: BP_SYST 133; BP_SYST 136; BP_DIAS 87; BP_DIAS 89
== END 2017-01-15 05:28 | disposition home or self-care (01) ==
LOC: EMR 05:18
DX: R60.0 Localized edema (principal); I10 Essential (primary) hypertension; J45.909 Unspecified asthma, uncomplicated
CPT/HCPCS: 99283

== ENCOUNTER 2018-02-05 10:57 | Inpatient (IN) | payer MEDICARE, OTHER ==
[2018-02-05] VITALS (8 sets, daily range): BP systolic 105–145; BP diastolic 47–84
[~2018-02-05] VITALS: Ht 167.6 cm; Wt 108.9 kg
[~2018-02-05 10:57] MED LIST changes: +UNOBMED
[2018-02-05] MEDS ORDERED: Morphine Sulfate 4mg/ml Inj (IV/IM USE ONLY) IVP ONE ×3 (11:45→18:00)
[2018-02-05] MEDS ORDERED: Isovue-300 100ml vial INJ PRN (11:45)
[2018-02-05 12:32] LABS: BASOPHILS % (AUTO) 0.5 % (0.0-2.0); EOSINOPHILS % (AUTO) 0.2 % (0.0-3.0); HEMATOCRIT 49.8 % (37.0-47.0); HEMOGLOBIN 16.1 G/DL (12.0-16.0); LYMPHOCYTES % (AUTO) 14.2 % (20.0-45.0); MEAN CORPUSCULAR VOLUME 81 FL (80-99); MONOCYTES % (AUTO) 4.7 % (1.0-10.0); NEUTROPHILS % (AUTO) 80.4 % (45.0-75.0); PLATELET COUNT 209 K/UL (150-450); RED BLOOD COUNT 6.14 M/UL (4.20-5.40); RED CELL DISTRIBUTION WIDTH 11.3 % (11.6-14.8); WHITE BLOOD COUNT 8.5 K/UL (4.8-10.8)
[2018-02-05 12:40] LABS: ANION GAP 12 mmol/L (5-15); BLOOD UREA NITROGEN 14 mg/dL (7-18); CALCIUM 9.2 MG/DL (8.5-10.1); CARBON DIOXIDE 24 MMOL/L (21-32); CHLORIDE 102 MMOL/L (98-107); CREATININE 1.2 MG/DL (0.55-1.30); SODIUM 138 MMOL/L (136-145)
[2018-02-05 12:45] LABS: ALANINE AMINOTRANSFERASE 38 U/L (12-78); ALBUMIN 3.7 G/DL (3.4-5.0); ALBUMIN/GLOBULIN RATIO 0.6 (1.0-2.7); ALKALINE PHOSPHATASE 87 U/L (46-116); ASPARTATE AMINO TRANSFERASE 34 U/L (15-37); BILIRUBIN,TOTAL 0.6 MG/DL (0.2-1.0)
[2018-02-05 13:42] LABS: APPEARANCE,URINE CLEAR; BILIRUBIN, URINE NEGATIVE (NEGATIVE); GLUCOSE, URINE (UA) NEGATIVE (NEGATIVE); KETONES,URINE 1+ (NEGATIVE); LEUKOCYTE ESTERASE ,URINE 3+ (NEGATIVE); NITRITE,URINE NEGATIVE (NEGATIVE); PH,URINE 5 (4.5-8.0); PROTEIN,URINE 2+ (NEGATIVE); UROBILINOGEN,URINE 1 MG/DL (0.0-1.0)
[2018-02-05 13:54] LABS: COLOR,URINE YELLOW
--- NOTE | 2018-02-05 14:13 | Diagnostic Imaging Report ---
Indication: Chest pain Technique: One view of the chest Comparison: 01/10/2017 Findings: Suboptimal inspiration. There is central bronchial wall thickening again demonstrated. Lungs and pleural spaces otherwise clear Impression: Central bronchial wall thickening, could indicate chronic bronchitis changes. No acute process otherwise
[2018-02-05] MEDS ORDERED: Omnipaque-300 100ml vial INJ ONE (14:24)
[2018-02-05] MEDS ORDERED: Piperacillin/Tazobactam 3.375 GM in NS 110 ML IVPB ONE (15:15)
--- NOTE | 2018-02-05 15:15 | Emergency Room Report ---
History of Present Illness General Chief Complaint: Abdominal Pain Source: Patient Present Illness HPI Patient presents with 2 days of L lower abdominal pain, somewhat centralized. Constant and persistent. Pain rated at 10/10, pressure and aching. No NVD. Moved bowels normally this am without blood or constipation. Never with this pain before. No dysuria. Chilled without fever. No medicine for pain. H/O hep c H/O asthma - no wheezing or productive cough. Post knee replacement bilat. No anxiety. No headache. No rashes, cough, sore throat, joint pain. 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 Allergies: Coded Allergies: No Known Allergies (Unverified , 03/17/16) Patient History Past Medical History: see triage record Past Surgical History: other - knee replacement Social History: Denies: smoking, alcohol use, drug use Social History Narrative assisted living Reviewed Nursing Documentation: PMH: Agreed; PSxH: Agreed Nursing Documentation-PM Past Medical History: No History, Except For Hx Hypertension: Yes Hx Asthma: Yes Review of Systems All Other Systems: negative except mentioned in HPI Physical Exam Vital Signs Date Time Temp Pulse Resp B/P (MAP) Pulse Ox O2 Delivery O2 Flow Rate FiO2 02/05/18 11:11 98.2 83 22 125/62 96 Room Air Sp02 EP Interpretation: reviewed, normal General Appearance: well appearing, no apparent distress, GCS 15 Head: normocephalic Eyes: bilateral eye normal inspection, bilateral eye PERRL, bilateral eye EOMI ENT: moist mucus membranes Neck: supple Respiratory: lungs clear, normal breath sounds Cardiovascular #1: regular rate, rhythm Cardiovascular #2: 2+ radial (R) Gastrointestinal: normal inspection, normal bowel sounds, no mass, non- distended, no rebound, guarding - LLQ and central, tenderness, overweight Genitourinary: no CVA tenderness Musculoskeletal: back normal, normal range of motion, no calf tenderness Neurologic: alert, motor strength/tone normal, sensory intact, grossly normal, oriented - X2 Psychiatric: depressed affect - slow to answer Skin: normal inspection, warm/dry Medical Decision Making Diagnostic Impression: Primary Impression: Diverticulitis Additional Impression: UTI (urinary tract infection) Qualified Codes: N39.0 - Urinary tract infection, site not specified ER Course Patient with 2 days of abdominal pain. DDX: pancreatitis, diverticulitis, UTI amongst others. Evaluation with EKG, CXR and CT abdomen/pelvis with labs. Treatment with IV hydration and analgesia. Labs with normal WBC, elevated H/H. CMP normal. UA with pyuria. CT with diverticulitis - microperforations, no free air. Antibiotics ordered. Improved but still pain. Morphine repeated. Tachycardic. Bolus second liter NS. Admit with plan for surgical consultation. Not surgical abdomen at this time. Laboratory Tests Test 02/05/18 12:15 02/05/18 13:30 White Blood Count 8.5 K/UL (4.8-10.8) Red Blood Count 6.14 M/UL (4.20-5.40) H Hemoglobin 16.1 G/DL (12.0-16.0) H Hematocrit 49.8 % (37.0-47.0) H Mean Corpuscular Volume 81 FL (80-99) Mean Corpuscular Hemoglobin 26.2 PG (27.0-31.0) L Mean Corpuscular Hemoglobin Concent 32.2 G/DL (32.0-36.0) Red Cell Distribution Width 11.3 % (11.6-14.8) L Platelet Count 209 K/UL (150-450) Mean Platelet Volume 9.8 FL (6.5-10.1) Neutrophils (%) (Auto) 80.4 % (45.0-75.0) H Lymphocytes (%) (Auto) 14.2 % (20.0-45.0) L Monocytes (%) (Auto) 4.7 % (1.0-10.0) Eosinophils (%) (Auto) 0.2 % (0.0-3.0) Basophils (%) (Auto) 0.5 % (0.0-2.0) Prothrombin Time 10.3 SEC (9.30-11.50) Prothrombin Time INR 1.0 (0.9-1.1) PTT 22 SEC (23-33) L Sodium Level 138 MMOL/L (136-145) Potassium Level 4.0 MMOL/L (3.5-5.1) Chloride Level 102 MMOL/L (98-107) Carbon Dioxide Level 24 MMOL/L (21-32) Anion Gap 12 mmol/L (5-15) Blood Urea Nitrogen 14 mg/dL (7-18) Creatinine 1.2 MG/DL (0.55-1.30) Estimate Glomerular Filtration Rate 55.8 mL/min (>60) Glucose Level 128 MG/DL (74-106) H Calcium Level 9.2 MG/DL (8.5-10.1) Total Bilirubin 0.6 MG/DL (0.2-1.0) Aspartate Amino Transferase (AST) 34 U/L (15-37) Alanine Aminotransferase (ALT) 38 U/L (12-78) Alkaline Phosphatase 87 U/L (46-116) Total Protein 10.0 G/DL (6.4-8.2) H Albumin 3.7 G/DL (3.4-5.0) Globulin 6.3 g/dL Albumin/Globulin Ratio 0.6 (1.0-2.7) L Lipase 63 U/L (73-393) L Urine Color Yellow Urine Appearance Clear Urine pH 5 (4.5-8.0) Urine Specific [place] 1.020 (1.005-1.035) Urine Protein 2+ (NEGATIVE) H Urine Glucose (UA) Negative (NEGATIVE) Urine Ketones 1+ (NEGATIVE) H Urine Blood 2+ (NEGATIVE) H Urine Nitrite Negative (NEGATIVE) Urine Bilirubin Negative (NEGATIVE) Urine Urobilinogen 1 MG/DL (0.0-1.0) H Urine Leukocyte Esterase 3+ (NEGATIVE) H Urine RBC 2-4 /HPF (0 - 2) H Urine WBC 10-15 /HPF (0 - 2) H Urine Squamous Epithelial Cells Moderate /LPF (NONE/OCC) H Urine Bacteria Few /HPF (NONE) EKG Diagnostic Results Rate: normal Rhythm: NSR ST Segments: no acute changes Rhythm Strip Diag. Results EP Interpretation: yes Rhythm: NSR, no PVC's, no ectopy Chest X-Ray Diagnostic Results Chest X-Ray Diagnostic Results : Chest X-Ray Ordered: Yes # of Views/Limited/Complete: 1 View Indication: Other EP Interpretation: Yes Interpretation: no consolidation, no effusion, no pneumothorax Impression: No acute disease Electronically Signed by: Electronically signed by Cruz Ascencio MD CT/MRI/US Diagnostic Results CT/MRI/US Diagnostic Results : Imaging Test Ordered: CT abd/Pelvis Impression diverticulitis with microperforations Last Vital Signs Date Time Temp Pulse Resp B/P (MAP) Pulse Ox O2 Delivery O2 Flow Rate FiO2 02/05/18 12:44 98.2 02/05/18 11:15 79 23 118/66 95 Room Air Status: improved Disposition: ADMITTED INPATIENT Condition: Serious Referrals: Irineo Arriaza DO (PCP) Cruz Ascencio MD Feb 05, 2018 15:15
--- NOTE | 2018-02-05 15:18 | Diagnostic Imaging Report ---
Clinical Indication: Abdominal pain, lower abdominal pain for 2 days Technique: Patient given oral contrast. IV administration nonionic contrast. Venous phase spiral acquisition obtained through the abdomen and pelvis. Multiplanar reconstructions were generated. Total dose length product 1139.52 mGycm. CTDIvol(s) 19.07 mGy. Dose reduction achieved using automated exposure control Comparison: none Findings: There is colonic diverticulosis. There is infiltration of the perisigmoid fat involving the proximal sigmoid. Extraluminal gas bubbles are seen immediately adjacent, as well as tracking along or adjacent to the left broad ligament and anterior to the uterine fundus.. A small amount of phlegmon is seen tracking along the adjacent fascial planes, but no discrete fluid collection to suggest abscess demonstrated. Trace fluid is seen within the pelvic cul-de-sac. Contrast is only seen in the proximal small bowel, but the small bowel is not distended. The distal esophagus, stomach, duodenum are unremarkable. Normal appendix. The colon is somewhat fluid-filled proximally, but not distended and there is no wall thickening. The gallbladder is mildly distended, but no radiopaque stones are evident. The liver is unremarkable. No biliary ductal dilatation. The pancreas, spleen, adrenals are unremarkable. The kidneys demonstrate tiny subcentimeter low-attenuation lesions which are too small to characterize. No renal or ureteral calculi, hydronephrosis, or hydroureter. No retroperitoneal or mesenteric mass or adenopathy. The uterus is diffusely enlarged, contains multiple masses. The largest of these is hypoattenuating, indicated of a necrosis degenerated fibroid. There are also multiple calcified masses, consistent with old degenerated fibroids. No adnexal or ovarian mass demonstrated. The included lung bases demonstrate posterior dependent atelectatic changes. The heart is upper limits normal in size. The bones demonstrate mild degenerative spondylosis changes, are otherwise unremarkable Impression: Positive for acute proximal sigmoid diverticulitis with microperforation Trace pelvic fluid, suspect secondary to the above Enlarged uterus with multiple masses consistent with fibroids, appearing chronic and degenerated Subcentimeter low-attenuation renal lesions, too small to characterize, most likely benign simple cortical cysts. No further follow-up necessary Other findings as noted, including degenerative spondylosis, pulmonary dependent atelectatic changes Findings discussed by phone with Dr. Ascencio in the emergency room at the time of interpretation The CT scanner at [facility] is accredited by the [employer] and the scans are performed using protocols designed to limit radiation exposure to as low as reasonably achievable to attain images of sufficient resolution adequate for diagnostic evaluation.
[2018-02-05] MEDS ORDERED: NKM (15:33)
[2018-02-05] MEDS ORDERED: Acetaminophen 500mg (ES) tab ORAL ONE (18:30)
--- NOTE | 2018-02-05 19:49 | Consultation ---
History of Present Illness General Date patient seen: Feb 05, 2018 Chief Complaint: Abdominal Pain Reason for Consultation: abd pain Present Illness HPI 57 year old female presented to [facility] ED with complaints of worsening abdominal pain. She states that since thanksgiving she has been having vague lower abdominal pain. Over the past 1-2 days pain has been worsening to 10/10 at max lower abdominal pain. States its in lower abdomen / pelvis area and somewhat radiating to LLQ. No associated nausea or emesis. +fevers. no chills. + flatus. Last BM yesterday and loose. In ED had a CT scan which demonstrated diverticulitis with microperf. Surgery called to evaluate. patient seen, chart reviewed, patient examined. states pain in lower abdomen only somewhat improved with pain meds. Allergies: Coded Allergies: No Known Allergies (Unverified , 03/17/16) Medication History Scheduled No Known Medications* (NKM - No Known Medications*), 0 ., (Reported) Patient History History Provided By: Patient, Medical Record, PMD Healthcare decision maker Resuscitation status Advanced Directive on File Past Medical/Surgical History Past Medical/Surgical History: (1) Back pain (2) Muscle strain (3) Peripheral edema (4) Diverticulitis (5) UTI (urinary tract infection) Review of Systems All Other Systems: negative except mentioned in HPI Physical Exam General Appearance: no apparent distress, alert Lines, tubes and drains: peripheral HEENT: normocephalic, mucous membranes moist Neck: normal inspection Respiratory/Chest: normal breath sounds, no respiratory distress, no accessory muscle use Cardiovascular/Chest: normal rate, tachycardia Abdomen: normal bowel sounds, soft, distended, guarding, rebound, tender Extremities: normal inspection Skin Exam: warm/dry Neurologic: alert, oriented x 3 Last 24 Hour Vital Signs Date Time Temp Pulse Resp B/P (MAP) Pulse Ox O2 Delivery O2 Flow Rate FiO2 02/05/18 19:12 103.0 02/05/18 18:20 103.0 119 18 106/56 94 Room Air 02/05/18 16:00 98.6 123 18 125/47 96 02/05/18 15:00 115 18 145/84 96 Room Air 02/05/18 14:00 98.6 113 18 126/62 95 Room Air 02/05/18 13:00 98.2 101 18 123/68 95 Room Air 02/05/18 12:44 98.2 02/05/18 12:00 98.2 99 20 105/64 95 Room Air 02/05/18 11:15 98.2 79 23 118/66 95 Room Air 02/05/18 11:15 83 22 Room Air 02/05/18 11:11 98.2 83 22 125/62 96 Room Air Laboratory Tests Test 02/05/18 12:15 02/05/18 13:30 White Blood Count 8.5 K/UL (4.8-10.8) Red Blood Count 6.14 M/UL (4.20-5.40) H Hemoglobin 16.1 G/DL (12.0-16.0) H Hematocrit 49.8 % (37.0-47.0) H Mean Corpuscular Volume 81 FL (80-99) Mean Corpuscular Hemoglobin 26.2 PG (27.0-31.0) L Mean Corpuscular Hemoglobin Concent 32.2 G/DL (32.0-36.0) Red Cell Distribution Width 11.3 % (11.6-14.8) L Platelet Count 209 K/UL (150-450) Mean Platelet Volume 9.8 FL (6.5-10.1) Neutrophils (%) (Auto) 80.4 % (45.0-75.0) H Lymphocytes (%) (Auto) 14.2 % (20.0-45.0) L Monocytes (%) (Auto) 4.7 % (1.0-10.0) Eosinophils (%) (Auto) 0.2 % (0.0-3.0) Basophils (%) (Auto) 0.5 % (0.0-2.0) Prothrombin Time 10.3 SEC (9.30-11.50) Prothromb Time International Ratio 1.0 (0.9-1.1) Activated Partial Thromboplast Time 22 SEC (23-33) L Sodium Level 138 MMOL/L (136-145) Potassium Level 4.0 MMOL/L (3.5-5.1) Chloride Level 102 MMOL/L (98-107) Carbon Dioxide Level 24 MMOL/L (21-32) Anion Gap 12 mmol/L (5-15) Blood Urea Nitrogen 14 mg/dL (7-18) Creatinine 1.2 MG/DL (0.55-1.30) Estimat Glomerular Filtration Rate 55.8 mL/min (>60) Glucose Level 128 MG/DL (74-106) H Calcium Level 9.2 MG/DL (8.5-10.1) Total Bilirubin 0.6 MG/DL (0.2-1.0) Aspartate Amino Transf (AST/SGOT) 34 U/L (15-37) Alanine Aminotransferase (ALT/SGPT) 38 U/L (12-78) Alkaline Phosphatase 87 U/L (46-116) Total Protein 10.0 G/DL (6.4-8.2) H Albumin 3.7 G/DL (3.4-5.0) Globulin 6.3 g/dL Albumin/Globulin Ratio 0.6 (1.0-2.7) L Lipase 63 U/L (73-393) L Urine Color Yellow Urine Appearance Clear Urine pH 5 (4.5-8.0) Urine Specific [place] 1.020 (1.005-1.035) Urine Protein 2+ (NEGATIVE) H Urine Glucose (UA) Negative (NEGATIVE) Urine Ketones 1+ (NEGATIVE) H Urine Blood 2+ (NEGATIVE) H Urine Nitrite Negative (NEGATIVE) Urine Bilirubin Negative (NEGATIVE) Urine Urobilinogen 1 MG/DL (0.0-1.0) H Urine Leukocyte Esterase 3+ (NEGATIVE) H Urine RBC 2-4 /HPF (0 - 2) H Urine WBC 10-15 /HPF (0 - 2) H Urine Squamous Epithelial Cells Moderate /LPF (NONE/OCC) H Urine Bacteria Few /HPF (NONE) Height (Feet): 5 Height (Inches): 6.00 Weight (Pounds): 247 Medications Current Medications Medications (Trade) Dose Ordered Sig/Calos Route PRN Reason Start Time Stop Time Status Last Admin Dose Admin Barium Sulfate (Readi-Cat 2) 450 ml NOW PRN ORAL Radiology Procedure 02/05/18 11:45 02/07/18 11:34 Iopamidol (Isovue-300 100ml) 100 ml NOW PRN INJ Radiology Procedure 02/05/18 11:45 Sodium Chloride 1,000 ml @ 300 mls/hr Q3H20M IV 02/05/18 11:45 03/07/18 11:44 02/05/18 13:53 Assessment/Plan Problem List: (1) Diverticulitis Assessment & Plan: 57 year old female with acute proximal sigmoid diverticulitis with microperforation Febrile, HD stable, labs noted. Exam with lower abdominal tenderness, rebound, and guarding on deep palpation. Admit to medsurg NPO IV fluids IV Abx medical management of acute diverticulitis. will hopefully respond but if worsening condition may require surgical intervention or possibly radiological. will follow clinically thank you for this consultation ICD Codes: K57.92 - Diverticulitis of intestine, part unspecified, without perforation or abscess without bleeding SNOMED: [id number] William Mcpherson Feb 05, 2018 19:49
[2018-02-05] MEDS ORDERED: LORazepam Inj 2mg/ml 1ml IV PRN (20:00)
[2018-02-05] MEDS: HYDROmorphone 1mg/ml Carpuject IVP PRN (21:35)
[2018-02-05] MEDS: Piperacillin/Tazobactam 3.375 GM in NS 110 ML IVPB SCH (21:51)
[2018-02-05] MEDS: Heparin 5000 units/ml inj SUBQ SCH (21:55)
[2018-02-06] VITALS: BP 104/65
[2018-02-06] MEDS: HYDROmorphone 1mg/ml Carpuject IVP PRN (01:59)
[2018-02-06 04:00] VITALS: BP 103/62
[2018-02-06] MEDS: Piperacillin/Tazobactam 3.375 GM in NS 110 ML IVPB SCH ×3 (05:31→23:31)
[2018-02-06] MEDS: Hydromorphone 0.5mg/0.5ml inj IVP PRN ×2 (05:32→16:58)
[2018-02-06 07:42] LABS: BASOPHILS % (AUTO) 0.6 % (0.0-2.0); EOSINOPHILS % (AUTO) 0.1 % (0.0-3.0); HEMATOCRIT 38.2 % (37.0-47.0); HEMOGLOBIN 12.7 G/DL (12.0-16.0); MEAN CORPUSCULAR VOLUME 81 FL (80-99); MONOCYTES % (AUTO) 5.8 % (1.0-10.0); NEUTROPHILS % (AUTO) 76.6 % (45.0-75.0); PLATELET COUNT 173 K/UL (150-450); RED CELL DISTRIBUTION WIDTH 11.3 % (11.6-14.8); WHITE BLOOD COUNT 13.8 K/UL (4.8-10.8)
[2018-02-06 07:52] LABS: INR 1.1 (0.9-1.1)
[2018-02-06 08:00] VITALS: BP 101/44
[2018-02-06 08:19] LABS: ALANINE AMINOTRANSFERASE 29 U/L (12-78); ALBUMIN 2.7 G/DL (3.4-5.0); ALBUMIN/GLOBULIN RATIO 0.5 (1.0-2.7); ALKALINE PHOSPHATASE 63 U/L (46-116); ANION GAP 8 mmol/L (5-15); ASPARTATE AMINO TRANSFERASE 16 U/L (15-37); BILIRUBIN,TOTAL 1.2 MG/DL (0.2-1.0); BLOOD UREA NITROGEN 11 mg/dL (7-18); CALCIUM 8.3 MG/DL (8.5-10.1); CARBON DIOXIDE 25 MMOL/L (21-32); CHLORIDE 107 MMOL/L (98-107); CHOLESTEROL 130 MG/DL (< 200); CREATININE 1.1 MG/DL (0.55-1.30); HDL CHOLESTEROL 63 MG/DL (40-60); POTASSIUM 3.8 MMOL/L (3.5-5.1); SODIUM 140 MMOL/L (136-145); TRIGLYCERIDES 50 MG/DL (30-150)
[2018-02-06] MEDS: Heparin 5000 units/ml inj SUBQ SCH ×2 (08:23→21:59)
[2018-02-06 08:25] LABS: BILIRUBIN,DIRECT 0.4 MG/DL (0.0-0.3)
--- NOTE | 2018-02-06 10:49 | GI Initial Consult Note ---
History of Present Illness General Date patient seen: Feb 06, 2018 Time patient seen: 10:44 Reason for Hospitalization: Abdominal Pain Referring physician: BRETT BONILLA Reason for Consultation: abd pain Present Illness HPI 57 year old female presented to [facility] with complaints of worsening abdominal pain. She states that since thanksgi she has been having vague lower abdominal pain. Over the past 1-2 days pain has been worsening to 10/10 at max lower abdominal pain. States its in lower abdomen / pelvis area and somewhat radiating to LLQ. No associated nausea or emesis. +fevers. no chills. + flatus. Last BM yesterday and loose. In ED had a CT scan which demonstrated diverticulitis. GI consulted for abdominal pain. Pt seen, awake A&Ox4 NAD c/o of lower abdominal pain. HPI as noted above. Patient with no prior history of endoscopy / colonoscopy. Labs reviewed; mild leukocytosis, no anemia. CT AP reviewed. Home Meds Reported Medications No Known Medications* (NKM - No Known Medications*) ., 0 ., 0 Refills 02/05/18 Med list reviewed/reconciled: Yes Allergies: Coded Allergies: No Known Allergies (Unverified , 03/17/16) Patient History History Provided By: Patient, Medical Record PMH Narrative (1) Back pain (2) Muscle strain (3) Peripheral edema (4) Diverticulitis (5) UTI (urinary tract infection) Social History: Denies: smoking, alcohol use, drug use, other Review of Systems All Other Systems: negative except mentioned in HPI Physical Exam Vital Signs Date Time Temp Pulse Resp B/P (MAP) Pulse Ox O2 Delivery O2 Flow Rate FiO2 02/05/18 11:11 98.2 83 22 125/62 96 Room Air 02/05/18 23:43 2.0 Sp02 EP Interpretation: reviewed, normal Labs Laboratory Tests Test 02/05/18 12:15 02/05/18 13:30 02/06/18 06:45 White Blood Count 8.5 K/UL (4.8-10.8) 13.8 K/UL (4.8-10.8) #H Red Blood Count 6.14 M/UL (4.20-5.40) H 4.70 M/UL (4.20-5.40) Hemoglobin 16.1 G/DL (12.0-16.0) H 12.7 G/DL (12.0-16.0) Hematocrit 49.8 % (37.0-47.0) H 38.2 % (37.0-47.0) Mean Corpuscular Volume 81 FL (80-99) 81 FL (80-99) Mean Corpuscular Hemoglobin 26.2 PG (27.0-31.0) L 27.0 PG (27.0-31.0) Mean Corpuscular Hemoglobin Concent 32.2 G/DL (32.0-36.0) 33.2 G/DL (32.0-36.0) Red Cell Distribution Width 11.3 % (11.6-14.8) L 11.3 % (11.6-14.8) L Platelet Count 209 K/UL (150-450) 173 K/UL (150-450) Mean Platelet Volume 9.8 FL (6.5-10.1) 9.4 FL (6.5-10.1) Neutrophils (%) (Auto) 80.4 % (45.0-75.0) H 76.6 % (45.0-75.0) H Lymphocytes (%) (Auto) 14.2 % (20.0-45.0) L 17.0 % (20.0-45.0) L Monocytes (%) (Auto) 4.7 % (1.0-10.0) 5.8 % (1.0-10.0) Eosinophils (%) (Auto) 0.2 % (0.0-3.0) 0.1 % (0.0-3.0) Basophils (%) (Auto) 0.5 % (0.0-2.0) 0.6 % (0.0-2.0) Prothrombin Time 10.3 SEC (9.30-11.50) 11.3 SEC (9.30-11.50) Prothromb Time International Ratio 1.0 (0.9-1.1) 1.1 (0.9-1.1) Activated Partial Thromboplast Time 22 SEC (23-33) L 31 SEC (23-33) Sodium Level 138 MMOL/L (136-145) 140 MMOL/L (136-145) Potassium Level 4.0 MMOL/L (3.5-5.1) 3.8 MMOL/L (3.5-5.1) Chloride Level 102 MMOL/L (98-107) 107 MMOL/L (98-107) Carbon Dioxide Level 24 MMOL/L (21-32) 25 MMOL/L (21-32) Anion Gap 12 mmol/L (5-15) 8 mmol/L (5-15) Blood Urea Nitrogen 14 mg/dL (7-18) 11 mg/dL (7-18) Creatinine 1.2 MG/DL (0.55-1.30) 1.1 MG/DL (0.55-1.30) Estimat Glomerular Filtration Rate 55.8 mL/min (>60) > 60 mL/min (>60) Glucose Level 128 MG/DL (74-106) H 108 MG/DL (74-106) H Calcium Level 9.2 MG/DL (8.5-10.1) 8.3 MG/DL (8.5-10.1) L Total Bilirubin 0.6 MG/DL (0.2-1.0) 1.2 MG/DL (0.2-1.0) H Aspartate Amino Transf (AST/SGOT) 34 U/L (15-37) 16 U/L (15-37) Alanine Aminotransferase (ALT/SGPT) 38 U/L (12-78) 29 U/L (12-78) Alkaline Phosphatase 87 U/L (46-116) 63 U/L (46-116) Total Protein 10.0 G/DL (6.4-8.2) H 8.0 G/DL (6.4-8.2) Albumin 3.7 G/DL (3.4-5.0) 2.7 G/DL (3.4-5.0) L Globulin 6.3 g/dL 5.3 g/dL Albumin/Globulin Ratio 0.6 (1.0-2.7) L 0.5 (1.0-2.7) L Lipase 63 U/L (73-393) L Urine Color Yellow Urine Appearance Clear Urine pH 5 (4.5-8.0) Urine Specific [place] 1.020 (1.005-1.035) Urine Protein 2+ (NEGATIVE) H Urine Glucose (UA) Negative (NEGATIVE) Urine Ketones 1+ (NEGATIVE) H Urine Blood 2+ (NEGATIVE) H Urine Nitrite Negative (NEGATIVE) Urine Bilirubin Negative (NEGATIVE) Urine Urobilinogen 1 MG/DL (0.0-1.0) H Urine Leukocyte Esterase 3+ (NEGATIVE) H Urine RBC 2-4 /HPF (0 - 2) H Urine WBC 10-15 /HPF (0 - 2) H Urine Squamous Epithelial Cells Moderate /LPF (NONE/OCC) H Urine Bacteria Few /HPF (NONE) Hemoglobin A1c 5.2 % (4.3-6.0) Direct Bilirubin 0.4 MG/DL (0.0-0.3) H Triglycerides Level 50 MG/DL (30-150) Cholesterol Level 130 MG/DL (< 200) LDL Cholesterol 72 mg/dL (<100) HDL Cholesterol 63 MG/DL (40-60) H Cholesterol/HDL Ratio 2.1 (3.3-4.4) L General Appearance: well appearing, no apparent distress, alert, obese Head: normocephalic EENT: PERRL/EOMI, normal ENT inspection Neck: supple Respiratory: normal breath sounds, no respiratory distress Cardiovascular: normal rate Gastrointestinal: normal inspection, non tender, soft, normal bowel sounds, non -distended Rectal: deferred Genitourinary: no CVA tenderness Musculoskeletal: normal inspection, back normal Neurologic: normal inspection, alert, oriented x3, responsive Psychiatric: normal inspection, judgement/insight normal, memory normal Skin: normal inspection, normal color, no rash, warm/dry, palpation normal, well hydrated Lymphatic: normal inspection, no adenopathy Current Medications Current Medications Medications (Trade) Dose Ordered Sig/Calos Route PRN Reason Start Time Stop Time Status Last Admin Dose Admin Acetaminophen (Tylenol) 650 mg Q4H PRN ORAL T>100.5 02/05/18 20:00 03/07/18 19:59 02/05/18 22:44 Barium Sulfate (Readi-Cat 2) 450 ml NOW PRN ORAL Radiology Procedure 02/05/18 11:45 02/07/18 11:34 Dextrose (Dextrose 50%) 25 ml Q30M PRN IV Hypoglycemia 02/05/18 20:00 03/07/18 19:59 Dextrose (Dextrose 50%) 50 ml Q30M PRN IV Hypoglycemia 02/05/18 20:00 03/07/18 19:59 Dextrose/ Electrolytes 1,000 ml @ 150 mls/hr Q6H40M IV 02/05/18 21:01 03/07/18 21:00 02/05/18 21:44 Famotidine (Pepcid I.v.) 20 mg Q12HR IVP 02/05/18 21:00 03/07/18 20:59 02/06/18 08:22 Heparin Sodium (Porcine) (Heparin 5000 units/ml) 5,000 units EVERY 12 HOURS SUBQ 02/05/18 21:00 03/07/18 20:59 02/06/18 08:23 Hydromorphone HCl (Dilaudid) 0.5 mg Q2H PRN IVP Mild Pain (Pain Scale 1-3) 02/05/18 20:00 02/12/18 19:59 02/06/18 05:32 Hydromorphone HCl (Dilaudid) 1 mg Q4H PRN IVP Moderate Pain (Pain Scale 4-6) 02/05/18 20:00 02/12/18 19:59 02/06/18 01:59 Hydromorphone HCl (Dilaudid) 2 mg Q4H PRN IVP Severe Pain (Pain Scale 7-10) 02/05/18 20:00 02/12/18 19:59 Iopamidol (Isovue-300 100ml) 100 ml NOW PRN INJ Radiology Procedure 02/05/18 11:45 Lorazepam (Ativan 2mg/ml 1ml) 0.5 mg Q4H PRN IV For Anxiety 02/05/18 20:00 02/12/18 19:59 Ondansetron HCl (Zofran) 4 mg Q6H PRN IVP Nausea & Vomiting 02/05/18 20:00 03/07/18 19:59 Piperacillin Sod/ Tazobactam Sod 3.375 gm/Sodium Chloride 110 ml @ 27.5 mls/hr EVERY 8 HOURS IVPB 02/05/18 22:00 02/10/18 21:59 02/06/18 05:31 GI: Plan Problems: (1) Diverticulitis Plan medical management at this time bowel rest >> CLD, adv as tolerated IV hydration >> LR or NS IV Abx >> transition to PO Cipro + Flagyl x 10 days after dc pain mgmt fu labs Pt will require colonoscopy x 2 months after dc date. Discussed with Dr. Sylvester. Thank you for this patient referral, we will follow. The patient was seen and examined at bedside and all new and available data was reviewed in the patients chart. I agree with the above findings, impression and plan. (Patient seen earlier today. Signature stamp does not reflect patient encounter time.). - MD Carlene Mix,[facility] CYTOMET[employer] TECHNOLOGIST Feb 06, 2018 10:49
[2018-02-06] MEDS ORDERED: Norco 5mg/325mg tab ORAL PRN (11:00)
[2018-02-06 12:00] VITALS: BP 110/61
--- NOTE | 2018-02-06 13:29 | General Surgery Progress Note ---
General Surgery-Progress Note Subjective Additional Comments low grade fevers. tachycardia. leukocytosis. still with abdominal pain. no n /v. diarrhea Objective Last 24 Hour Vital Signs Date Time Temp Pulse Resp B/P (MAP) Pulse Ox O2 Delivery O2 Flow Rate FiO2 02/06/18 12:00 98.0 102 21 110/61 (77) 95 02/06/18 08:00 98.1 92 22 101/44 (63) 97 02/06/18 08:00 Nasal Cannula 2.0 02/06/18 08:00 94 02/06/18 04:00 99.0 113 20 103/62 (76) 99 02/06/18 03:36 115 02/06/18 00:00 98.9 120 18 104/65 (78) 99 02/05/18 23:44 98.0 02/05/18 23:43 Nasal Cannula 2.0 02/05/18 23:28 117 02/05/18 23:14 99.5 02/05/18 22:44 100.5 02/05/18 21:00 98.2 120 18 106/56 100 Room Air 02/05/18 21:00 99.3 118 20 107/67 (80) 99 02/05/18 19:12 103.0 02/05/18 19:00 98.2 02/05/18 18:58 98.2 02/05/18 18:20 103.0 119 18 106/56 94 Room Air 02/05/18 16:00 98.6 123 18 125/47 96 02/05/18 15:00 115 18 145/84 96 Room Air 02/05/18 14:00 98.6 113 18 126/62 95 Room Air I&O Intake and Output 02/05/18 02/06/18 19:00 07:00 Intake Total 1010.0 ml Balance 1010.0 ml Intake IV Total 1010.0 ml # Voids 1 1 Drains: none Cardiovascular: RSR Respiratory: clear Abdomen: soft, tenderness, present bowel sounds Extremities: no tenderness, no cyanosis Laboratory Tests Test 02/05/18 13:30 02/06/18 06:45 Urine Color Yellow Urine Appearance Clear Urine pH 5 (4.5-8.0) Urine Specific [place] 1.020 (1.005-1.035) Urine Protein 2+ (NEGATIVE) H Urine Glucose (UA) Negative (NEGATIVE) Urine Ketones 1+ (NEGATIVE) H Urine Blood 2+ (NEGATIVE) H Urine Nitrite Negative (NEGATIVE) Urine Bilirubin Negative (NEGATIVE) Urine Urobilinogen 1 MG/DL (0.0-1.0) H Urine Leukocyte Esterase 3+ (NEGATIVE) H Urine RBC 2-4 /HPF (0 - 2) H Urine WBC 10-15 /HPF (0 - 2) H Urine Squamous Epithelial Cells Moderate /LPF (NONE/OCC) H Urine Bacteria Few /HPF (NONE) White Blood Count 13.8 K/UL (4.8-10.8) #H Red Blood Count 4.70 M/UL (4.20-5.40) Hemoglobin 12.7 G/DL (12.0-16.0) Hematocrit 38.2 % (37.0-47.0) Mean Corpuscular Volume 81 FL (80-99) Mean Corpuscular Hemoglobin 27.0 PG (27.0-31.0) Mean Corpuscular Hemoglobin Concent 33.2 G/DL (32.0-36.0) Red Cell Distribution Width 11.3 % (11.6-14.8) L Platelet Count 173 K/UL (150-450) Mean Platelet Volume 9.4 FL (6.5-10.1) Neutrophils (%) (Auto) 76.6 % (45.0-75.0) H Lymphocytes (%) (Auto) 17.0 % (20.0-45.0) L Monocytes (%) (Auto) 5.8 % (1.0-10.0) Eosinophils (%) (Auto) 0.1 % (0.0-3.0) Basophils (%) (Auto) 0.6 % (0.0-2.0) Prothrombin Time 11.3 SEC (9.30-11.50) Prothromb Time International Ratio 1.1 (0.9-1.1) Activated Partial Thromboplast Time 31 SEC (23-33) Sodium Level 140 MMOL/L (136-145) Potassium Level 3.8 MMOL/L (3.5-5.1) Chloride Level 107 MMOL/L (98-107) Carbon Dioxide Level 25 MMOL/L (21-32) Anion Gap 8 mmol/L (5-15) Blood Urea Nitrogen 11 mg/dL (7-18) Creatinine 1.1 MG/DL (0.55-1.30) Estimat Glomerular Filtration Rate > 60 mL/min (>60) Glucose Level 108 MG/DL (74-106) H Hemoglobin A1c 5.2 % (4.3-6.0) Calcium Level 8.3 MG/DL (8.5-10.1) L Total Bilirubin 1.2 MG/DL (0.2-1.0) H Direct Bilirubin 0.4 MG/DL (0.0-0.3) H Aspartate Amino Transf (AST/SGOT) 16 U/L (15-37) Alanine Aminotransferase (ALT/SGPT) 29 U/L (12-78) Alkaline Phosphatase 63 U/L (46-116) Total Protein 8.0 G/DL (6.4-8.2) Albumin 2.7 G/DL (3.4-5.0) L Globulin 5.3 g/dL Albumin/Globulin Ratio 0.5 (1.0-2.7) L Triglycerides Level 50 MG/DL (30-150) Cholesterol Level 130 MG/DL (< 200) LDL Cholesterol 72 mg/dL (<100) HDL Cholesterol 63 MG/DL (40-60) H Cholesterol/HDL Ratio 2.1 (3.3-4.4) L Plan Problems: (1) Diverticulitis Assessment & Plan: 57 year old female with acute proximal sigmoid diverticulitis with microperforation Febrile, HD stable, labs noted. Exam with lower abdominal tenderness, rebound, and guarding on deep palpation. still with low grade fevers and tachycardia. wbc elevated today. Strict NPO IV fluids IV Abx medical management of acute diverticulitis. will hopefully respond but if worsening condition may require surgical intervention or possibly radiological. will follow clinically thank you for this consultation William Mcpherson Feb 06, 2018 13:29
[2018-02-06 16:00] VITALS: BP 100/62
--- NOTE | 2018-02-06 17:45 | Cardiology Report ---
APPROVED REPORT EKG Measurement Heart [id number] Normal sinus rhythm Low voltage QRS Borderline ECG
[2018-02-06 20:00] VITALS: BP 134/79
--- NOTE | 2018-02-06 22:45 | History and Physical Report ---
DATE OF ADMISSION: 02/05/2018 HISTORY: This is a 57-year-old female, who came to the emergency room at [facility] with complaints of abdominal pain that she has been having for several days. She was seen and worked up in the ER and found to have evidence of diverticulitis and also microperforation. The patient denies any other medical problems. PAST MEDICAL HISTORY: Past history unremarkable except for obesity. HOME MEDICATIONS: Not known. ALLERGIES: Not known. REVIEW OF SYSTEMS: Denies any headaches, hematemesis, melena, or hematochezia. PHYSICAL EXAMINATION: GENERAL: Reveals 00:39. HEENT: Unremarkable. LUNGS: Clear breath sounds bilaterally. ABDOMEN: Soft. There is no edema. There is mild left lower quadrant discomfort. NEUROLOGICAL: Nonfocal. LABORATORY AND DIAGNOSTIC DATA: Lab testing shows bilirubin 1.2. White count 13,000. Imaging study discussed above. IMPRESSION: 1. Diverticulitis with microperforation. 2. Discussion admit to the hospital. 3. Continue broad-spectrum antibiotics. 4. SCDs and DVT prophylaxis. 5. Zosyn has been initiated. 6. IV fluids. 7. We will consult General Surgery and Gastrointestinal. Matias Bass M.D. DR: ENRIKE JOB#: [id number] CC:
[2018-02-07] VITALS: BP 99/58
[2018-02-07 04:00] VITALS: BP 115/49
[2018-02-07] MEDS: Piperacillin/Tazobactam 3.375 GM in NS 110 ML IVPB SCH ×3 (06:23→23:06)
[2018-02-07 07:19] LABS: BASOPHILS % (AUTO) 0.8 % (0.0-2.0); EOSINOPHILS % (AUTO) 0.6 % (0.0-3.0); HEMATOCRIT 34.9 % (37.0-47.0); HEMOGLOBIN 11.4 G/DL (12.0-16.0); LYMPHOCYTES % (AUTO) 25.6 % (20.0-45.0); MEAN CORPUSCULAR VOLUME 82 FL (80-99); MONOCYTES % (AUTO) 6.4 % (1.0-10.0); NEUTROPHILS % (AUTO) 66.6 % (45.0-75.0); PLATELET COUNT 154 K/UL (150-450); RED BLOOD COUNT 4.27 M/UL (4.20-5.40); RED CELL DISTRIBUTION WIDTH 11.3 % (11.6-14.8)
[2018-02-07 07:27] LABS: ANION GAP 7 mmol/L (5-15); BLOOD UREA NITROGEN 6 mg/dL (7-18); CALCIUM 8.1 MG/DL (8.5-10.1); CARBON DIOXIDE 25 MMOL/L (21-32); CHLORIDE 108 MMOL/L (98-107); POTASSIUM 3.7 MMOL/L (3.5-5.1); SODIUM 140 MMOL/L (136-145)
[2018-02-07 08:00] VITALS: BP 104/46
[2018-02-07] MEDS: Heparin 5000 units/ml inj SUBQ SCH ×2 (08:38→20:58)
--- NOTE | 2018-02-07 11:23 | GI Progress Note ---
Assessment/Plan Problems: (1) Diverticulitis ICD Codes: K57.92 - Diverticulitis of intestine, part unspecified, without perforation or abscess without bleeding SNOMED: [id number] Status: unchanged Status Narrative Discussed with Dr. Sylvester. Assessment/Plan fu surgical recommendation r/o possible perforation medical management bowel rest >> CLD, adv as tolerated IV hydration >> LR or NS IV Abx >> transition to PO Cipro + Flagyl x 10 days after dc pain mgmt fu labs Pt will require colonoscopy x 2 months after dc date. The patient was seen and examined at bedside and all new and available data was reviewed in the patients chart. I agree with the above findings, impression and plan. (Patient seen earlier today. Signature stamp does not reflect patient encounter time.). - Brandt Sylvester MD Subjective Gastrointestinal/Abdominal: Reports: no symptoms Objective Last 24 Hour Vital Signs Date Time Temp Pulse Resp B/P (MAP) Pulse Ox O2 Delivery O2 Flow Rate FiO2 02/07/18 08:00 100.2 101 20 104/46 (65) 95 02/07/18 04:00 96 02/07/18 04:00 98.2 96 20 115/49 (71) 96 02/07/18 00:00 115 02/07/18 00:00 102.6 117 20 99/58 (72) 98 02/06/18 23:58 100.0 02/06/18 20:00 Nasal Cannula 2.0 02/06/18 20:00 106 02/06/18 20:00 99.7 106 20 134/79 (97) 95 02/06/18 16:00 92 02/06/18 16:00 98.1 89 21 100/62 (75) 95 02/06/18 12:00 98.0 102 21 110/61 (77) 95 02/06/18 12:00 89 Intake and Output 02/06/18 02/07/18 18:59 06:59 Intake Total 1010.0 ml Balance 1010.0 ml Intake IV Total 1010.0 ml Laboratory Tests Test 02/07/18 05:27 White Blood Count 11.0 K/UL (4.8-10.8) H Red Blood Count 4.27 M/UL (4.20-5.40) Hemoglobin 11.4 G/DL (12.0-16.0) L Hematocrit 34.9 % (37.0-47.0) L Mean Corpuscular Volume 82 FL (80-99) Mean Corpuscular Hemoglobin 26.7 PG (27.0-31.0) L Mean Corpuscular Hemoglobin Concent 32.7 G/DL (32.0-36.0) Red Cell Distribution Width 11.3 % (11.6-14.8) L Platelet Count 154 K/UL (150-450) Mean Platelet Volume 9.0 FL (6.5-10.1) Neutrophils (%) (Auto) 66.6 % (45.0-75.0) Lymphocytes (%) (Auto) 25.6 % (20.0-45.0) Monocytes (%) (Auto) 6.4 % (1.0-10.0) Eosinophils (%) (Auto) 0.6 % (0.0-3.0) Basophils (%) (Auto) 0.8 % (0.0-2.0) Sodium Level 140 MMOL/L (136-145) Potassium Level 3.7 MMOL/L (3.5-5.1) Chloride Level 108 MMOL/L (98-107) H Carbon Dioxide Level 25 MMOL/L (21-32) Anion Gap 7 mmol/L (5-15) Blood Urea Nitrogen 6 mg/dL (7-18) L Creatinine 1.0 MG/DL (0.55-1.30) Estimat Glomerular Filtration Rate > 60 mL/min (>60) Glucose Level 102 MG/DL (74-106) Calcium Level 8.1 MG/DL (8.5-10.1) L Height (Feet): 5 Height (Inches): 6.00 Weight (Pounds): 240 General Appearance: WD/WN, no apparent distress, alert Cardiovascular: normal rate Respiratory/Chest: normal breath sounds, no respiratory distress Abdominal Exam: normal bowel sounds, non tender, soft Extremities: normal range of motion, non-tender Casey Concepcion HANDTOOLS REPAIRER Feb 07, 2018 11:23
[2018-02-07 12:00] VITALS: BP 117/59
--- NOTE | 2018-02-07 12:57 | Pulmonology Progress Note ---
Assessment/Plan Assessment/Plan IMPRESSION: 1. Diverticulitis with microperforation. PLAN 1. Follow abdominal exam 2. Pain control 3. Continue broad-spectrum antibiotics. 4. SCDs and DVT prophylaxis. 5. NPO 6. IV fluids. 7. Seen by General Surgery and GI Matias Bass M.D. Subjective Interval Events: Feeling better Constitutional: Reports: no symptoms HEENT: Repors: no symptoms Respiratory: Reports: no symptoms Cardiovascular: Reports: no symptoms Gastrointestinal/Abdominal: Reports: no symptoms Genitourinary: Reports: no symptoms Allergies: Coded Allergies: No Known Allergies (Unverified , 03/17/16) Objective Last 24 Hour Vital Signs Date Time Temp Pulse Resp B/P (MAP) Pulse Ox O2 Delivery O2 Flow Rate FiO2 02/07/18 12:00 98.6 70 21 117/59 (78) 99 02/07/18 08:00 100.2 101 20 104/46 (65) 95 02/07/18 04:00 96 02/07/18 04:00 98.2 96 20 115/49 (71) 96 02/07/18 00:00 115 02/07/18 00:00 102.6 117 20 99/58 (72) 98 02/06/18 23:58 100.0 02/06/18 20:00 Nasal Cannula 2.0 02/06/18 20:00 106 02/06/18 20:00 99.7 106 20 134/79 (97) 95 02/06/18 16:00 92 02/06/18 16:00 98.1 89 21 100/62 (75) 95 Intake and Output 02/06/18 02/07/18 18:59 06:59 Intake Total 1010.0 ml Balance 1010.0 ml Intake IV Total 1010.0 ml General Appearance: no acute distress HEENT: normocephalic Respiratory/Chest: chest wall non-tender, lungs clear Cardiovascular: normal peripheral pulses, normal rate Abdomen: normal bowel sounds, soft, non tender Microbiology Date/Time Source Procedure Growth Status 02/05/18 13:30 Urine,Clean Catch Urine Culture - Preliminary Gram Negative Bacillus 1 Resulted Laboratory Tests 02/07/18 05:27: White Blood Count 11.0H, Red Blood Count 4.27, Hemoglobin 11.4L, Hematocrit 34.9L, Mean Corpuscular Volume 82, Mean Corpuscular Hemoglobin 26.7L, Mean Corpuscular Hemoglobin Concent 32.7, Red Cell Distribution Width 11.3L, Platelet Count 154, Mean Platelet Volume 9.0, Neutrophils (%) (Auto) 66.6, Lymphocytes (%) (Auto) 25.6, Monocytes (%) (Auto) 6.4, Eosinophils (%) (Auto) 0.6, Basophils (%) (Auto) 0.8, Sodium Level 140, Potassium Level 3.7, Chloride Level 108H, Carbon Dioxide Level 25, Anion Gap 7, Blood Urea Nitrogen 6L, Creatinine 1.0, Estimat Glomerular Filtration Rate > 60, Glucose Level 102, Calcium Level 8.1L Current Medications Medications (Trade) Dose Ordered Sig/Calos Route PRN Reason Start Time Stop Time Status Last Admin Dose Admin Acetaminophen (Tylenol) 650 mg Q4H PRN ORAL T>100.5 02/05/18 20:00 03/07/18 19:59 02/06/18 23:28 Dextrose (Dextrose 50%) 25 ml Q30M PRN IV Hypoglycemia 02/05/18 20:00 03/07/18 19:59 Dextrose (Dextrose 50%) 50 ml Q30M PRN IV Hypoglycemia 02/05/18 20:00 03/07/18 19:59 Dextrose/ Electrolytes 1,000 ml @ 150 mls/hr Q6H40M IV 02/05/18 21:01 03/07/18 21:00 02/07/18 10:45 Famotidine (Pepcid I.v.) 20 mg Q12HR IVP 02/05/18 21:00 03/07/18 20:59 02/07/18 08:30 Heparin Sodium (Porcine) (Heparin 5000 units/ml) 5,000 units EVERY 12 HOURS SUBQ 02/05/18 21:00 03/07/18 20:59 02/07/18 08:38 Hydromorphone HCl (Dilaudid) 0.5 mg Q2H PRN IVP Mild Pain (Pain Scale 1-3) 02/05/18 20:00 02/12/18 19:59 02/06/18 16:58 Hydromorphone HCl (Dilaudid) 1 mg Q4H PRN IVP Moderate Pain (Pain Scale 4-6) 02/06/18 11:00 02/12/18 19:59 Hydromorphone HCl (Dilaudid) 2 mg Q4H PRN IVP Severe Pain (Pain Scale 7-10) 02/05/18 20:00 02/12/18 19:59 02/07/18 08:30 Iopamidol (Isovue-300 100ml) 100 ml NOW PRN INJ Radiology Procedure 02/05/18 11:45 Lorazepam (Ativan 2mg/ml 1ml) 0.5 mg Q4H PRN IV For Anxiety 02/05/18 20:00 02/12/18 19:59 Metronidazole 100 ml @ 100 mls/hr Q8HR IVPB 02/06/18 22:00 02/13/18 21:59 02/07/18 06:23 Ondansetron HCl (Zofran) 4 mg Q6H PRN IVP Nausea & Vomiting 02/05/18 20:00 03/07/18 19:59 Piperacillin Sod/ Tazobactam Sod 3.375 gm/Sodium Chloride 110 ml @ 27.5 mls/hr EVERY 8 HOURS IVPB 02/05/18 22:00 02/10/18 21:59 02/07/18 06:23 Matias Bass MD Feb 07, 2018 12:57
[2018-02-07 16:00] VITALS: BP 123/66
--- NOTE | 2018-02-07 17:33 | General Surgery Progress Note ---
General Surgery-Progress Note Subjective Additional Comments fevers. abd pain same. no n/v/f/c. Objective Last 24 Hour Vital Signs Date Time Temp Pulse Resp B/P (MAP) Pulse Ox O2 Delivery O2 Flow Rate FiO2 02/07/18 12:00 98.6 70 21 117/59 (78) 99 02/07/18 09:00 Nasal Cannula 2.0 02/07/18 08:00 100.2 101 20 104/46 (65) 95 02/07/18 04:00 96 02/07/18 04:00 98.2 96 20 115/49 (71) 96 02/07/18 00:00 115 02/07/18 00:00 102.6 117 20 99/58 (72) 98 02/06/18 23:58 100.0 02/06/18 20:00 Nasal Cannula 2.0 02/06/18 20:00 106 02/06/18 20:00 99.7 106 20 134/79 (97) 95 I&O Intake and Output 02/06/18 02/07/18 19:00 07:00 Intake Total 1010.0 ml Balance 1010.0 ml Intake IV Total 1010.0 ml Drains: none Cardiovascular: RSR Respiratory: clear Abdomen: soft, distended, tenderness, present bowel sounds Extremities: no tenderness, no cyanosis Laboratory Tests Test 02/07/18 05:27 White Blood Count 11.0 K/UL (4.8-10.8) H Red Blood Count 4.27 M/UL (4.20-5.40) Hemoglobin 11.4 G/DL (12.0-16.0) L Hematocrit 34.9 % (37.0-47.0) L Mean Corpuscular Volume 82 FL (80-99) Mean Corpuscular Hemoglobin 26.7 PG (27.0-31.0) L Mean Corpuscular Hemoglobin Concent 32.7 G/DL (32.0-36.0) Red Cell Distribution Width 11.3 % (11.6-14.8) L Platelet Count 154 K/UL (150-450) Mean Platelet Volume 9.0 FL (6.5-10.1) Neutrophils (%) (Auto) 66.6 % (45.0-75.0) Lymphocytes (%) (Auto) 25.6 % (20.0-45.0) Monocytes (%) (Auto) 6.4 % (1.0-10.0) Eosinophils (%) (Auto) 0.6 % (0.0-3.0) Basophils (%) (Auto) 0.8 % (0.0-2.0) Sodium Level 140 MMOL/L (136-145) Potassium Level 3.7 MMOL/L (3.5-5.1) Chloride Level 108 MMOL/L (98-107) H Carbon Dioxide Level 25 MMOL/L (21-32) Anion Gap 7 mmol/L (5-15) Blood Urea Nitrogen 6 mg/dL (7-18) L Creatinine 1.0 MG/DL (0.55-1.30) Estimat Glomerular Filtration Rate > 60 mL/min (>60) Glucose Level 102 MG/DL (74-106) Calcium Level 8.1 MG/DL (8.5-10.1) L Plan Problems: (1) Diverticulitis Assessment & Plan: 57 year old female with acute proximal sigmoid diverticulitis with microperforation Febrile, HD stable, labs noted. Exam with lower abdominal tenderness, rebound, and guarding on deep palpation. febrile leukocytosis abd tender Strict NPO IV fluids IV Abx medical management of acute diverticulitis. will hopefully respond but if worsening condition may require surgical intervention or possibly radiological. will follow clinically thank you for this consultation William Mcpherson Feb 07, 2018 17:33
[2018-02-07 20:00] VITALS: BP 125/77
[2018-02-08] VITALS: BP 97/62
[2018-02-08 04:00] VITALS: BP 124/67
[2018-02-08] MEDS: Piperacillin/Tazobactam 3.375 GM in NS 110 ML IVPB SCH ×3 (05:59→22:22)
[2018-02-08 08:00] VITALS: BP 125/77
--- NOTE | 2018-02-08 08:43 | Pulmonology Progress Note ---
Assessment/Plan Assessment/Plan IMPRESSION: 1. Diverticulitis with microperforation. PLAN 1. Follow abdominal exam; benign today 2. Pain control 3. Continue broad-spectrum antibiotics. 4. SCDs and DVT prophylaxis. 5. NPO 6. IV fluids. 7. Seen by General Surgery and GI Will discuss plans with surgery Clear liquids? Matias Bass M.D. Subjective Interval Events: Continues to complain of pain Constitutional: Reports: no symptoms HEENT: Repors: no symptoms Respiratory: Reports: no symptoms Cardiovascular: Reports: no symptoms Genitourinary: Reports: no symptoms Neurologic: Reports: no symptoms Psychiatric: Reports: no symptoms Allergies: Coded Allergies: No Known Allergies (Unverified , 03/17/16) Objective Last 24 Hour Vital Signs Date Time Temp Pulse Resp B/P (MAP) Pulse Ox O2 Delivery O2 Flow Rate FiO2 02/08/18 04:00 100.1 18 124/67 (86) 96 02/08/18 04:00 98 02/08/18 00:00 99.5 101 18 97/62 (74) 97 02/08/18 00:00 101 02/07/18 21:00 Nasal Cannula 2.0 02/07/18 20:00 97 02/07/18 20:00 99.8 97 18 125/77 (93) 100 02/07/18 19:19 98.4 02/07/18 16:00 100.7 108 20 123/66 (85) 97 02/07/18 16:00 119 02/07/18 15:49 100.7 02/07/18 12:00 98.6 70 21 117/59 (78) 99 02/07/18 12:00 98 02/07/18 09:00 Nasal Cannula 2.0 General Appearance: no acute distress HEENT: normocephalic Respiratory/Chest: chest wall non-tender, lungs clear Cardiovascular: normal peripheral pulses, normal rate Abdomen: soft, non tender Extremities: no cyanosis Microbiology Date/Time Source Procedure Growth Status 02/06/18 23:25 Blood Blood Culture - Preliminary NO GROWTH AFTER 24 HOURS Resulted 11/28/18 23:20 Blood Blood Culture - Preliminary NO GROWTH AFTER 24 HOURS Resulted 02/05/18 13:30 Urine,Clean Catch Urine Culture - Final Escherichia Coli Mixed Gram Positive Organism Complete Current Medications Medications (Trade) Dose Ordered Sig/Calos Route PRN Reason Start Time Stop Time Status Last Admin Dose Admin Acetaminophen (Tylenol) 650 mg Q4H PRN ORAL T>100.5 02/05/18 20:00 03/07/18 19:59 02/06/18 23:28 Dextrose (Dextrose 50%) 25 ml Q30M PRN IV Hypoglycemia 02/05/18 20:00 03/07/18 19:59 Dextrose (Dextrose 50%) 50 ml Q30M PRN IV Hypoglycemia 02/05/18 20:00 03/07/18 19:59 Dextrose/ Electrolytes 1,000 ml @ 150 mls/hr Q6H40M IV 02/05/18 21:01 03/07/18 21:00 02/08/18 02:35 Famotidine (Pepcid I.v.) 20 mg Q12HR IVP 02/05/18 21:00 03/07/18 20:59 02/07/18 20:57 Heparin Sodium (Porcine) (Heparin 5000 units/ml) 5,000 units EVERY 12 HOURS SUBQ 02/05/18 21:00 03/07/18 20:59 02/07/18 20:58 Hydromorphone HCl (Dilaudid) 0.5 mg Q2H PRN IVP Mild Pain (Pain Scale 1-3) 02/05/18 20:00 02/12/18 19:59 02/06/18 16:58 Hydromorphone HCl (Dilaudid) 1 mg Q4H PRN IVP Moderate Pain (Pain Scale 4-6) 02/06/18 11:00 02/12/18 19:59 Hydromorphone HCl (Dilaudid) 2 mg Q4H PRN IVP Severe Pain (Pain Scale 7-10) 02/05/18 20:00 02/12/18 19:59 02/08/18 03:58 Iopamidol (Isovue-300 100ml) 100 ml NOW PRN INJ Radiology Procedure 02/05/18 11:45 Lorazepam (Ativan 2mg/ml 1ml) 0.5 mg Q4H PRN IV For Anxiety 02/05/18 20:00 12/4/18 19:59 Metronidazole 100 ml @ 100 mls/hr Q8HR IVPB 02/06/18 22:00 02/13/18 21:59 02/08/18 05:59 Ondansetron HCl (Zofran) 4 mg Q6H PRN IVP Nausea & Vomiting 02/05/18 20:00 03/07/18 19:59 02/07/18 15:38 Piperacillin Sod/ Tazobactam Sod 3.375 gm/Sodium Chloride 110 ml @ 27.5 mls/hr EVERY 8 HOURS IVPB 02/05/18 22:00 02/10/18 21:59 02/08/18 05:59 Matias Bass MD Feb 08, 2018 08:43
[2018-02-08] MEDS: Heparin 5000 units/ml inj SUBQ SCH ×2 (09:23→20:54)
[2018-02-08 09:31] LABS: BASOPHILS % (AUTO) 1.6 % (0.0-2.0); EOSINOPHILS % (AUTO) 1.1 % (0.0-3.0); HEMATOCRIT 35.2 % (37.0-47.0); HEMOGLOBIN 11.8 G/DL (12.0-16.0); LYMPHOCYTES % (AUTO) 26.3 % (20.0-45.0); MEAN CORPUSCULAR VOLUME 81 FL (80-99); MONOCYTES % (AUTO) 9.5 % (1.0-10.0); NEUTROPHILS % (AUTO) 61.5 % (45.0-75.0); PLATELET COUNT 203 K/UL (150-450); RED BLOOD COUNT 4.34 M/UL (4.20-5.40); RED CELL DISTRIBUTION WIDTH 11.4 % (11.6-14.8); WHITE BLOOD COUNT 9.5 K/UL (4.8-10.8)
[2018-02-08 09:48] LABS: ANION GAP 10 mmol/L (5-15); BLOOD UREA NITROGEN 5 mg/dL (7-18); CALCIUM 8.4 MG/DL (8.5-10.1); CARBON DIOXIDE 24 MMOL/L (21-32); CHLORIDE 104 MMOL/L (98-107); POTASSIUM 3.8 MMOL/L (3.5-5.1); SODIUM 138 MMOL/L (136-145)
--- NOTE | 2018-02-08 10:48 | GI Progress Note ---
Assessment/Plan Problems: (1) Diverticulitis ICD Codes: K57.92 - Diverticulitis of intestine, part unspecified, without perforation or abscess without bleeding SNOMED: 608626734 Status: progressing Status Narrative Discussed with Dr. Sylvester. Assessment/Plan fu surgical recommendation r/o possible colonic perforation >> strict NPO medical management bowel rest >> CLD, adv as tolerated IV hydration IV Abx >> transition to PO Cipro + Flagyl x 10 days after dc pain mgmt fu labs Pt will require colonoscopy x 2 months after dc date. The patient was seen and examined at bedside and all new and available data was reviewed in the patients chart. I agree with the above findings, impression and plan. (Patient seen earlier today. Signature stamp does not reflect patient encounter time.). - Brandt Sylvester MD Subjective Subjective hungry Objective Last 24 Hour Vital Signs Date Time Temp Pulse Resp B/P (MAP) Pulse Ox O2 Delivery O2 Flow Rate FiO2 02/08/18 08:00 99.8 99 18 125/77 (93) 100 02/08/18 04:00 100.1 18 124/67 (86) 96 02/08/18 04:00 98 02/08/18 00:00 99.5 101 18 97/62 (74) 97 02/08/18 00:00 101 02/07/18 21:00 Nasal Cannula 2.0 02/07/18 20:00 97 02/07/18 20:00 99.8 97 18 125/77 (93) 100 02/07/18 19:19 98.4 02/07/18 16:00 100.7 108 20 123/66 (85) 97 02/07/18 16:00 119 02/07/18 15:49 100.7 02/07/18 12:00 98.6 70 21 117/59 (78) 99 02/07/18 12:00 98 Laboratory Tests Test 02/08/18 08:30 White Blood Count 9.5 K/UL (4.8-10.8) Red Blood Count 4.34 M/UL (4.20-5.40) Hemoglobin 11.8 G/DL (12.0-16.0) L Hematocrit 35.2 % (37.0-47.0) L Mean Corpuscular Volume 81 FL (80-99) Mean Corpuscular Hemoglobin 27.2 PG (27.0-31.0) Mean Corpuscular Hemoglobin Concent 33.5 G/DL (32.0-36.0) Red Cell Distribution Width 11.4 % (11.6-14.8) L Platelet Count 203 K/UL (150-450) Mean Platelet Volume 9.5 FL (6.5-10.1) Neutrophils (%) (Auto) 61.5 % (45.0-75.0) Lymphocytes (%) (Auto) 26.3 % (20.0-45.0) Monocytes (%) (Auto) 9.5 % (1.0-10.0) Eosinophils (%) (Auto) 1.1 % (0.0-3.0) Basophils (%) (Auto) 1.6 % (0.0-2.0) Sodium Level 138 MMOL/L (136-145) Potassium Level 3.8 MMOL/L (3.5-5.1) Chloride Level 104 MMOL/L (98-107) Carbon Dioxide Level 24 MMOL/L (21-32) Anion Gap 10 mmol/L (5-15) Blood Urea Nitrogen 5 mg/dL (7-18) L Creatinine 1.0 MG/DL (0.55-1.30) Estimat Glomerular Filtration Rate > 60 mL/min (>60) Glucose Level 99 MG/DL (74-106) Calcium Level 8.4 MG/DL (8.5-10.1) L Height (Feet): 5 Height (Inches): 6.00 Weight (Pounds): 240 General Appearance: WD/WN, no apparent distress, alert Cardiovascular: normal rate Respiratory/Chest: normal breath sounds, no respiratory distress Abdominal Exam: normal bowel sounds, non tender, soft Extremities: normal range of motion, non-tender Casey Concepcion [employer] Feb 08, 2018 10:48
[2018-02-08 12:00] VITALS: BP 107/59
[2018-02-08 16:00] VITALS: BP 119/69
[2018-02-08] MEDS: HYDROmorphone 1mg/ml Carpuject IVP PRN ×2 (16:28→20:48)
--- NOTE | 2018-02-08 16:29 | General Surgery Progress Note ---
General Surgery-Progress Note Subjective Additional Comments low grade fevers. leukocytosis resolved. pain slightly improved. no n/v Objective Last 24 Hour Vital Signs Date Time Temp Pulse Resp B/P (MAP) Pulse Ox O2 Delivery O2 Flow Rate FiO2 02/08/18 16:00 99.1 91 18 119/69 (86) 98 02/08/18 12:00 99.5 93 18 107/59 (75) 100 02/08/18 12:00 95 02/08/18 09:00 Nasal Cannula 2.0 02/08/18 08:00 94 02/08/18 08:00 99.8 99 18 125/77 (93) 100 02/08/18 04:00 100.1 18 124/67 (86) 96 02/08/18 04:00 98 02/08/18 00:00 99.5 101 18 97/62 (74) 97 02/08/18 00:00 101 02/07/18 21:00 Nasal Cannula 2.0 02/07/18 20:00 97 02/07/18 20:00 99.8 97 18 125/77 (93) 100 02/07/18 19:19 98.4 Drains: none Cardiovascular: RSR Respiratory: clear Abdomen: soft, tenderness, present bowel sounds Extremities: no tenderness, no cyanosis Laboratory Tests Test 02/08/18 08:30 White Blood Count 9.5 K/UL (4.8-10.8) Red Blood Count 4.34 M/UL (4.20-5.40) Hemoglobin 11.8 G/DL (12.0-16.0) L Hematocrit 35.2 % (37.0-47.0) L Mean Corpuscular Volume 81 FL (80-99) Mean Corpuscular Hemoglobin 27.2 PG (27.0-31.0) Mean Corpuscular Hemoglobin Concent 33.5 G/DL (32.0-36.0) Red Cell Distribution Width 11.4 % (11.6-14.8) L Platelet Count 203 K/UL (150-450) Mean Platelet Volume 9.5 FL (6.5-10.1) Neutrophils (%) (Auto) 61.5 % (45.0-75.0) Lymphocytes (%) (Auto) 26.3 % (20.0-45.0) Monocytes (%) (Auto) 9.5 % (1.0-10.0) Eosinophils (%) (Auto) 1.1 % (0.0-3.0) Basophils (%) (Auto) 1.6 % (0.0-2.0) Sodium Level 138 MMOL/L (136-145) Potassium Level 3.8 MMOL/L (3.5-5.1) Chloride Level 104 MMOL/L (98-107) Carbon Dioxide Level 24 MMOL/L (21-32) Anion Gap 10 mmol/L (5-15) Blood Urea Nitrogen 5 mg/dL (7-18) L Creatinine 1.0 MG/DL (0.55-1.30) Estimat Glomerular Filtration Rate > 60 mL/min (>60) Glucose Level 99 MG/DL (74-106) Calcium Level 8.4 MG/DL (8.5-10.1) L Plan Problems: (1) Diverticulitis Assessment & Plan: 57 year old female with acute proximal sigmoid diverticulitis with microperforation Febrile, HD stable, labs noted. Exam with lower abdominal tenderness, rebound, and guarding on deep palpation. low grade febrile leukocytosis resolved abd tender slightly improved start clear liquids today IV fluids IV Abx medical management of acute diverticulitis. will hopefully respond but if worsening condition may require surgical intervention or possibly radiological. will follow clinically thank you for this consultation William Mcpherson Feb 08, 2018 16:29
[2018-02-08 20:00] VITALS: BP 112/62
[2018-02-08] MEDS ORDERED: Tubing IV Secondary IV ONE (22:36)
[2018-02-09] VITALS: BP 144/77
[2018-02-09] MEDS: HYDROmorphone 1mg/ml Carpuject IVP PRN ×4 (02:49→22:21)
[2018-02-09 04:00] VITALS: BP 143/69
[2018-02-09] MEDS: Piperacillin/Tazobactam 3.375 GM in NS 110 ML IVPB SCH ×3 (06:18→22:10)
--- NOTE | 2018-02-09 07:17 | General Progress Note ---
Assessment/Plan Assessment/Plan (1) Diverticulitis ICD Codes: K57.92 - Diverticulitis of intestine, part unspecified, without perforation or abscess without bleeding SNOMED: [id number] Status: progressing Status Narrative Discussed with Dr. Sylvester. Assessment/Plan fu surgical recommendation r/o possible colonic perforation >> strict NPO medical management bowel rest >> CLD, adv as tolerated IV hydration IV Abx >> transition to PO Cipro + Flagyl x 10 days after dc pain mgmt fu labs Pt will require colonoscopy x 2 months after dc date. Subjective ROS Limited/Unobtainable: Yes Allergies: Coded Allergies: No Known Allergies (Unverified , 03/17/16) Objective Last 24 Hour Vital Signs Date Time Temp Pulse Resp B/P (MAP) Pulse Ox O2 Delivery O2 Flow Rate FiO2 02/09/18 04:00 99.4 96 19 143/69 (93) 96 02/09/18 04:00 96 02/09/18 00:00 94 02/09/18 00:00 98.5 100 18 144/77 (99) 97 02/08/18 21:00 Room Air 02/08/18 20:00 99.3 96 19 112/62 (79) 95 02/08/18 20:00 92 02/08/18 16:00 99.1 91 18 119/69 (86) 98 02/08/18 16:00 88 02/08/18 12:00 99.5 93 18 107/59 (75) 100 02/08/18 12:00 95 02/08/18 09:00 Nasal Cannula 2.0 02/08/18 08:00 94 02/08/18 08:00 99.8 99 18 125/77 (93) 100 Intake and Output 02/08/18 02/09/18 19:00 07:00 Intake Total 100 ml Balance 100 ml Intake Oral 100 ml # Voids 2 1 # Bowel Movements 1 Laboratory Tests 02/08/18 08:30: White Blood Count 9.5, Red Blood Count 4.34, Hemoglobin 11.8L, Hematocrit 35.2L , Mean Corpuscular Volume 81, Mean Corpuscular Hemoglobin 27.2, Mean Corpuscular Hemoglobin Concent 33.5, Red Cell Distribution Width 11.4L, Platelet Count 203, Mean Platelet Volume 9.5, Neutrophils (%) (Auto) 61.5, Lymphocytes (%) (Auto) 26.3, Monocytes (%) (Auto) 9.5, Eosinophils (%) (Auto) 1.1, Basophils (%) (Auto) 1.6, Sodium Level 138, Potassium Level 3.8, Chloride Level 104, Carbon Dioxide Level 24, Anion Gap 10, Blood Urea Nitrogen 5L, Creatinine 1.0, Estimat Glomerular Filtration Rate > 60, Glucose Level 99, Calcium Level 8.4L Height (Feet): 5 Height (Inches): 6.00 Weight (Pounds): 240 General Appearance: alert EENT: normal ENT inspection Neck: supple Cardiovascular: normal rate Respiratory/Chest: decreased breath sounds Abdomen: hypoactive bowel sounds, tender Extremities: non-tender Brandt Sylvester MD Feb 09, 2018 07:17
[2018-02-09 08:00] VITALS: BP 143/84
[2018-02-09] MEDS: Heparin 5000 units/ml inj SUBQ SCH ×2 (08:07→21:00)
[2018-02-09 09:29] LABS: BASOPHILS % (AUTO) 0.9 % (0.0-2.0); EOSINOPHILS % (AUTO) 1.2 % (0.0-3.0); HEMOGLOBIN 12.1 G/DL (12.0-16.0); LYMPHOCYTES % (AUTO) 19.1 % (20.0-45.0); MEAN CORPUSCULAR VOLUME 80 FL (80-99); MONOCYTES % (AUTO) 10.1 % (1.0-10.0); NEUTROPHILS % (AUTO) 68.8 % (45.0-75.0); PLATELET COUNT 218 K/UL (150-450); RED BLOOD COUNT 4.62 M/UL (4.20-5.40); RED CELL DISTRIBUTION WIDTH 10.9 % (11.6-14.8); WHITE BLOOD COUNT 8.7 K/UL (4.8-10.8)
[2018-02-09 09:42] LABS: ANION GAP 7 mmol/L (5-15); BLOOD UREA NITROGEN 3 mg/dL (7-18); CALCIUM 8.2 MG/DL (8.5-10.1); CARBON DIOXIDE 27 MMOL/L (21-32); CHLORIDE 105 MMOL/L (98-107); CREATININE 0.9 MG/DL (0.55-1.30); POTASSIUM 3.6 MMOL/L (3.5-5.1); SODIUM 139 MMOL/L (136-145)
[2018-02-09 12:00] VITALS: BP 148/90
--- NOTE | 2018-02-09 14:10 | Pulmonology Progress Note ---
Assessment/Plan Assessment/Plan Pulmonary Progress Note Assessment/Plan IMPRESSION: 1. Diverticulitis with microperforation. PLAN 1. Follow abdominal exam; benign today 2. Pain control 3. Continue broad-spectrum antibiotics. 4. SCDs and DVT prophylaxis. 5. NPO 6. IV fluids. 7. Seen by General Surgery and GI Will discuss plans with surgery Clear liquids? Matias Bass M.D. Subjective Interval Events: Continues to complain of pain Constitutional: Reports: no symptoms HEENT: Repors: no symptoms Respiratory: Reports: no symptoms Cardiovascular: Reports: no symptoms Genitourinary: Reports: no symptoms Neurologic: Reports: no symptoms Psychiatric: Reports: no symptoms Allergies: Coded Allergies: No Known Allergies (Unverified , 03/17/16) Objective Vital Signs Noted General Appearance: no acute distress HEENT: normocephalic Respiratory/Chest: chest wall non-tender, lungs clear Cardiovascular: normal peripheral pulses, normal rate Abdomen: soft, non tender Extremities: no cyanosis Microbiology Date/Time Source Procedure Growth Status 02/06/18 23:25 Blood Blood Culture - Preliminary NO GROWTH AFTER 24 HOURS Resulted 02/06/18 23:20 Blood Blood Culture - Preliminary NO GROWTH AFTER 24 HOURS Resulted 02/05/18 13:30 Urine,Clean Catch Urine Culture - Final Escherichia Coli Mixed Gram Positive Organism Complete Current Medications Medications (Trade) Dose Ordered Sig/Calos Route PRN Reason Start Time Stop Time Status Last Admin Dose Admin Acetaminophen (Tylenol) 650 mg Q4H PRN ORAL T>100.5 02/05/18 20:00 03/07/18 19:59 02/06/18 23:28 Dextrose (Dextrose 50%) 25 ml Q30M PRN IV Hypoglycemia 02/05/18 20:00 03/07/18 19:59 Dextrose (Dextrose 50%) 50 ml Q30M PRN IV Hypoglycemia 02/05/18 20:00 03/07/18 19:59 Dextrose/ Electrolytes 1,000 ml @ 150 mls/hr Q6H40M IV 02/05/18 21:01 03/07/18 21:00 02/08/18 02:35 Famotidine (Pepcid I.v.) 20 mg Q12HR IVP 02/05/18 21:00 03/07/18 20:59 02/07/18 20:57 Heparin Sodium (Porcine) (Heparin 5000 units/ml) 5,000 units EVERY 12 HOURS SUBQ 02/05/18 21:00 03/07/18 20:59 02/07/18 20:58 Hydromorphone HCl (Dilaudid) 0.5 mg Q2H PRN IVP Mild Pain (Pain Scale 1-3) 02/05/18 20:00 02/12/18 19:59 02/06/18 16:58 Hydromorphone HCl (Dilaudid) 1 mg Q4H PRN IVP Moderate Pain (Pain Scale 4-6) 02/06/18 11:00 02/12/18 19:59 Hydromorphone HCl (Dilaudid) 2 mg Q4H PRN IVP Severe Pain (Pain Scale 7-10) 02/05/18 20:00 02/12/18 19:59 02/08/18 03:58 Iopamidol (Isovue-300 100ml) 100 ml NOW PRN INJ Radiology Procedure 02/05/18 11:45 Lorazepam (Ativan 2mg/ml 1ml) 0.5 mg Q4H PRN IV For Anxiety 02/05/18 20:00 02/12/18 19:59 Metronidazole 100 ml @ 100 mls/hr Q8HR IVPB 02/06/18 22:00 02/13/18 21:59 02/08/18 05:59 Ondansetron HCl (Zofran) 4 mg Q6H PRN IVP Nausea & Vomiting 02/05/18 20:00 03/07/18 19:59 02/07/18 15:38 Piperacillin Sod/ Tazobactam Sod 3.375 gm/Sodium Chloride 110 ml @ 27.5 mls/hr EVERY 8 HOURS IVPB 02/05/18 22:00 02/10/18 21:59 02/08/18 05:59 Subjective ROS Limited/Unobtainable: No Allergies: Coded Allergies: No Known Allergies (Unverified , 03/17/16) Objective Last 24 Hour Vital Signs Date Time Temp Pulse Resp B/P (MAP) Pulse Ox O2 Delivery O2 Flow Rate FiO2 02/09/18 08:52 Room Air 02/09/18 08:00 98.5 90 18 143/84 (103) 98 02/09/18 08:00 83 02/09/18 04:00 99.4 96 19 143/69 (93) 96 02/09/18 04:00 96 02/09/18 00:00 94 02/09/18 00:00 98.5 100 18 144/77 (99) 97 02/08/18 21:00 Room Air 02/08/18 20:00 99.3 96 19 112/62 (79) 95 02/08/18 20:00 92 02/08/18 16:00 99.1 91 18 119/69 (86) 98 02/08/18 16:00 88 Intake and Output 02/08/18 02/09/18 19:00 07:00 Intake Total 100 ml Balance 100 ml Intake Oral 100 ml # Voids 2 1 # Bowel Movements 1 Microbiology Date/Time Source Procedure Growth Status 02/06/18 23:25 Blood Blood Culture - Preliminary NO GROWTH AFTER 48 HOURS Resulted 02/06/18 23:20 Blood Blood Culture - Preliminary NO GROWTH AFTER 48 HOURS Resulted Laboratory Tests 02/09/18 09:15: White Blood Count 8.7, Red Blood Count 4.62, Hemoglobin 12.1, Hematocrit 37.0, Mean Corpuscular Volume 80, Mean Corpuscular Hemoglobin 26.2L, Mean Corpuscular Hemoglobin Concent 32.7, Red Cell Distribution Width 10.9L, Platelet Count 218, Mean Platelet Volume 7.5, Neutrophils (%) (Auto) 68.8, Lymphocytes (%) (Auto) 19.1L, Monocytes (%) (Auto) 10.1H, Eosinophils (%) (Auto) 1.2, Basophils (%) ( Auto) 0.9, Sodium Level 139, Potassium Level 3.6, Chloride Level 105, Carbon Dioxide Level 27, Anion Gap 7, Blood Urea Nitrogen 3L, Creatinine 0.9, Estimat Glomerular Filtration Rate > 60, Glucose Level 108H, Calcium Level 8.2L Current Medications Medications (Trade) Dose Ordered Sig/Calos Route PRN Reason Start Time Stop Time Status Last Admin Dose Admin Acetaminophen (Tylenol) 650 mg Q4H PRN ORAL T>100.5 02/05/18 20:00 03/07/18 19:59 02/06/18 23:28 Dextrose (Dextrose 50%) 25 ml Q30M PRN IV Hypoglycemia 02/05/18 20:00 03/07/18 19:59 Dextrose (Dextrose 50%) 50 ml Q30M PRN IV Hypoglycemia 02/05/18 20:00 03/07/18 19:59 Dextrose/ Electrolytes 1,000 ml @ 150 mls/hr Q6H40M IV 02/05/18 21:01 03/07/18 21:00 02/09/18 11:52 Famotidine (Pepcid I.v.) 20 mg Q12HR IVP 02/05/18 21:00 03/07/18 20:59 02/09/18 08:18 Heparin Sodium (Porcine) (Heparin 5000 units/ml) 5,000 units EVERY 12 HOURS SUBQ 02/05/18 21:00 03/07/18 20:59 02/08/18 20:54 Hydromorphone HCl (Dilaudid) 0.5 mg Q2H PRN IVP Mild Pain (Pain Scale 1-3) 02/05/18 20:00 02/12/18 19:59 02/06/18 16:58 Hydromorphone HCl (Dilaudid) 1 mg Q4H PRN IVP Moderate Pain (Pain Scale 4-6) 02/06/18 11:00 02/12/18 19:59 02/09/18 08:18 Hydromorphone HCl (Dilaudid) 2 mg Q4H PRN IVP Severe Pain (Pain Scale 7-10) 02/05/18 20:00 02/12/18 19:59 02/08/18 09:22 Iopamidol (Isovue-300 100ml) 100 ml NOW PRN INJ Radiology Procedure 02/05/18 11:45 Lorazepam (Ativan 2mg/ml 1ml) 0.5 mg Q4H PRN IV For Anxiety 02/05/18 20:00 02/12/18 19:59 Metronidazole 100 ml @ 100 mls/hr Q8HR IVPB 02/06/18 22:00 02/13/18 21:59 02/09/18 14:04 Ondansetron HCl (Zofran) 4 mg Q6H PRN IVP Nausea & Vomiting 02/05/18 20:00 03/07/18 19:59 02/07/18 15:38 Piperacillin Sod/ Tazobactam Sod 3.375 gm/Sodium Chloride 110 ml @ 27.5 mls/hr EVERY 8 HOURS IVPB 02/05/18 22:00 02/11/18 21:59 02/09/18 06:18 Cruz Sinha MD Feb 09, 2018 14:10
--- NOTE | 2018-02-09 14:59 | General Surgery Progress Note ---
General Surgery-Progress Note Subjective Symptoms: improved, tolerating diet, passing flatus, BM Additional Comments states discomfort with BM/flatus. pain overall improved. afebrile now. leukocytosis resolved. Objective Last 24 Hour Vital Signs Date Time Temp Pulse Resp B/P (MAP) Pulse Ox O2 Delivery O2 Flow Rate FiO2 02/09/18 12:00 96 02/09/18 12:00 98.1 92 18 148/90 (109) 97 02/09/18 08:52 Room Air 02/09/18 08:00 98.5 90 18 143/84 (103) 98 02/09/18 08:00 83 02/09/18 04:00 99.4 96 19 143/69 (93) 96 02/09/18 04:00 96 02/09/18 00:00 94 02/09/18 00:00 98.5 100 18 144/77 (99) 97 02/08/18 21:00 Room Air 02/08/18 20:00 99.3 96 19 112/62 (79) 95 02/08/18 20:00 92 02/08/18 16:00 99.1 91 18 119/69 (86) 98 02/08/18 16:00 88 I&O Intake and Output 02/08/18 02/09/18 18:59 06:59 Intake Total 100 ml Balance 100 ml Intake Oral 100 ml # Voids 2 1 # Bowel Movements 1 Drains: none Cardiovascular: RSR Respiratory: clear Abdomen: soft, flat, tenderness, present bowel sounds Extremities: no tenderness, no cyanosis Laboratory Tests Test 02/09/18 09:15 White Blood Count 8.7 K/UL (4.8-10.8) Red Blood Count 4.62 M/UL (4.20-5.40) Hemoglobin 12.1 G/DL (12.0-16.0) Hematocrit 37.0 % (37.0-47.0) Mean Corpuscular Volume 80 FL (80-99) Mean Corpuscular Hemoglobin 26.2 PG (27.0-31.0) L Mean Corpuscular Hemoglobin Concent 32.7 G/DL (32.0-36.0) Red Cell Distribution Width 10.9 % (11.6-14.8) L Platelet Count 218 K/UL (150-450) Mean Platelet Volume 7.5 FL (6.5-10.1) Neutrophils (%) (Auto) 68.8 % (45.0-75.0) Lymphocytes (%) (Auto) 19.1 % (20.0-45.0) L Monocytes (%) (Auto) 10.1 % (1.0-10.0) H Eosinophils (%) (Auto) 1.2 % (0.0-3.0) Basophils (%) (Auto) 0.9 % (0.0-2.0) Sodium Level 139 MMOL/L (136-145) Potassium Level 3.6 MMOL/L (3.5-5.1) Chloride Level 105 MMOL/L (98-107) Carbon Dioxide Level 27 MMOL/L (21-32) Anion Gap 7 mmol/L (5-15) Blood Urea Nitrogen 3 mg/dL (7-18) L Creatinine 0.9 MG/DL (0.55-1.30) Estimat Glomerular Filtration Rate > 60 mL/min (>60) Glucose Level 108 MG/DL (74-106) H Calcium Level 8.2 MG/DL (8.5-10.1) L Plan Problems: (1) Diverticulitis Assessment & Plan: 57 year old female with acute proximal sigmoid diverticulitis with microperforation Febrile, HD stable, labs noted. Exam with lower abdominal tenderness, rebound, and guarding on deep palpation. low grade febrile leukocytosis resolved abd tender improved Full liquids today IV fluids IV Abx medical management of acute diverticulitis. will hopefully respond but if worsening condition may require surgical intervention or possibly radiological. will follow clinically thank you for this consultation William Mcpherson Feb 09, 2018 14:59
[2018-02-09 16:00] VITALS: BP 140/79
[2018-02-09 20:00] VITALS: BP 129/79
[2018-02-10] VITALS: BP 135/79
[2018-02-10] MEDS: HYDROmorphone 1mg/ml Carpuject IVP PRN (03:46)
[2018-02-10 04:00] VITALS: BP 140/84
[2018-02-10] MEDS: Piperacillin/Tazobactam 3.375 GM in NS 110 ML IVPB SCH ×3 (06:25→22:31)
[2018-02-10 08:00] VITALS: BP 112/67
[2018-02-10 08:19] LABS: BASOPHILS % (AUTO) 0.8 % (0.0-2.0); EOSINOPHILS % (AUTO) 1.8 % (0.0-3.0); HEMATOCRIT 35.1 % (37.0-47.0); HEMOGLOBIN 11.7 G/DL (12.0-16.0); LYMPHOCYTES % (AUTO) 25.9 % (20.0-45.0); MEAN CORPUSCULAR VOLUME 80 FL (80-99); NEUTROPHILS % (AUTO) 60.5 % (45.0-75.0); PLATELET COUNT 228 K/UL (150-450); RED BLOOD COUNT 4.38 M/UL (4.20-5.40); RED CELL DISTRIBUTION WIDTH 10.7 % (11.6-14.8); WHITE BLOOD COUNT 9.1 K/UL (4.8-10.8)
[2018-02-10] MEDS: Heparin 5000 units/ml inj SUBQ SCH ×2 (08:36→20:36)
--- NOTE | 2018-02-10 08:52 | General Progress Note ---
Assessment/Plan Assessment/Plan (1) Diverticulitis ICD Codes: K57.92 - Diverticulitis of intestine, part unspecified, without perforation or abscess without bleeding SNOMED: [id number] Status: progressing Status Narrative Discussed with Dr. Sylvester. Assessment/Plan fu surgical recommendation r/o possible colonic perforation >> strict NPO medical management bowel rest >> CLD, adv as tolerated IV hydration IV Abx >> transition to PO Cipro + Flagyl x 10 days after dc pain mgmt fu labs Pt will require colonoscopy x 2 months after dc date. Subjective ROS Limited/Unobtainable: Yes Allergies: Coded Allergies: No Known Allergies (Unverified , 03/17/16) Objective Last 24 Hour Vital Signs Date Time Temp Pulse Resp B/P (MAP) Pulse Ox O2 Delivery O2 Flow Rate FiO2 02/10/18 04:00 97 02/10/18 04:00 98.7 100 20 140/84 (102) 95 02/10/18 00:00 81 02/10/18 00:00 98.1 85 19 135/79 (97) 97 02/09/18 23:01 98.2 02/09/18 21:00 Room Air 02/09/18 20:00 87 02/09/18 20:00 98.3 90 22 129/79 (96) 96 02/09/18 16:00 98.2 101 18 140/79 (99) 97 02/09/18 12:00 96 02/09/18 12:00 98.1 92 18 148/90 (109) 97 Intake and Output 02/09/18 02/10/18 19:00 07:00 Intake Total 240 ml Balance 240 ml Intake Oral 240 ml # Voids 1 3 # Bowel Movements 1 1 Laboratory Tests 02/09/18 09:15: White Blood Count 8.7, Red Blood Count 4.62, Hemoglobin 12.1, Hematocrit 37.0, Mean Corpuscular Volume 80, Mean Corpuscular Hemoglobin 26.2L, Mean Corpuscular Hemoglobin Concent 32.7, Red Cell Distribution Width 10.9L, Platelet Count 218, Mean Platelet Volume 7.5, Neutrophils (%) (Auto) 68.8, Lymphocytes (%) (Auto) 19.1L, Monocytes (%) (Auto) 10.1H, Eosinophils (%) (Auto) 1.2, Basophils (%) ( Auto) 0.9, Sodium Level 139, Potassium Level 3.6, Chloride Level 105, Carbon Dioxide Level 27, Anion Gap 7, Blood Urea Nitrogen 3L, Creatinine 0.9, Estimat Glomerular Filtration Rate > 60, Glucose Level 108H, Calcium Level 8.2L 02/10/18 07:47: White Blood Count 9.1, Red Blood Count 4.38, Hemoglobin 11.7L, Hematocrit 35.1L , Mean Corpuscular Volume 80, Mean Corpuscular Hemoglobin 26.7L, Mean Corpuscular Hemoglobin Concent 33.3, Red Cell Distribution Width 10.7L, Platelet Count 228, Mean Platelet Volume 7.6, Neutrophils (%) (Auto) 60.5, Lymphocytes (%) (Auto) 25.9, Monocytes (%) (Auto) 11.0H, Eosinophils (%) (Auto) 1.8, Basophils (%) (Auto) 0.8, Sodium Level [Pending], Potassium Level [Pending] , Chloride Level [Pending], Carbon Dioxide Level [Pending], Blood Urea Nitrogen [Pending], Creatinine [Pending], Estimat Glomerular Filtration Rate [Pending], Glucose Level [Pending], Calcium Level [Pending] Height (Feet): 5 Height (Inches): 6.00 Weight (Pounds): 240 General Appearance: no apparent distress EENT: normal ENT inspection Neck: supple Cardiovascular: normal rate Respiratory/Chest: decreased breath sounds Abdomen: soft, tender Extremities: non-tender Brandt Sylvester MD Feb 10, 2018 08:52
[2018-02-10 09:05] LABS: ANION GAP 10 mmol/L (5-15); BLOOD UREA NITROGEN 2 mg/dL (7-18); CARBON DIOXIDE 26 MMOL/L (21-32); CHLORIDE 106 MMOL/L (98-107); POTASSIUM 3.5 MMOL/L (3.5-5.1); SODIUM 141 MMOL/L (136-145)
--- NOTE | 2018-02-10 11:25 | Pulmonology Progress Note ---
Assessment/Plan Assessment/Plan Pulmonary Progress Note Assessment/Plan IMPRESSION: 1. Diverticulitis with microperforation. PLAN 1. Follow abdominal exam; benign today 2. Pain control 3. Continue broad-spectrum antibiotics. 4. SCDs and DVT prophylaxis. 5. NPO 6. IV fluids. 7. Seen by General Surgery and GI Will discuss plans with surgery Clear liquids? Matias Bass M.D. Subjective Interval Events: Continues to complain of pain Constitutional: Reports: no symptoms HEENT: Repors: no symptoms Respiratory: Reports: no symptoms Cardiovascular: Reports: no symptoms Genitourinary: Reports: no symptoms Neurologic: Reports: no symptoms Psychiatric: Reports: no symptoms Allergies: Coded Allergies: No Known Allergies (Unverified , 03/17/16) Objective Vital Signs Noted General Appearance: no acute distress HEENT: normocephalic Respiratory/Chest: chest wall non-tender, lungs clear Cardiovascular: normal peripheral pulses, normal rate Abdomen: soft, non tender Extremities: no cyanosis Microbiology Date/Time Source Procedure Growth Status 02/06/18 23:25 Blood Blood Culture - Preliminary NO GROWTH AFTER 24 HOURS Resulted 02/06/18 23:20 Blood Blood Culture - Preliminary NO GROWTH AFTER 24 HOURS Resulted 02/05/18 13:30 Urine,Clean Catch Urine Culture - Final Escherichia Coli Mixed Gram Positive Organism Complete Current Medications Medications (Trade) Dose Ordered Sig/Calos Route PRN Reason Start Time Stop Time Status Last Admin Dose Admin Acetaminophen (Tylenol) 650 mg Q4H PRN ORAL T>100.5 02/05/18 20:00 03/07/18 19:59 02/06/18 23:28 Dextrose (Dextrose 50%) 25 ml Q30M PRN IV Hypoglycemia 02/05/18 20:00 03/07/18 19:59 Dextrose (Dextrose 50%) 50 ml Q30M PRN IV Hypoglycemia 02/05/18 20:00 03/07/18 19:59 Dextrose/ Electrolytes 1,000 ml @ 150 mls/hr Q6H40M IV 02/05/18 21:01 03/07/18 21:00 02/08/18 02:35 Famotidine (Pepcid I.v.) 20 mg Q12HR IVP 02/05/18 21:00 03/07/18 20:59 02/07/18 20:57 Heparin Sodium (Porcine) (Heparin 5000 units/ml) 5,000 units EVERY 12 HOURS SUBQ 02/05/18 21:00 03/07/18 20:59 02/07/18 20:58 Hydromorphone HCl (Dilaudid) 0.5 mg Q2H PRN IVP Mild Pain (Pain Scale 1-3) 02/05/18 20:00 02/12/18 19:59 02/06/18 16:58 Hydromorphone HCl (Dilaudid) 1 mg Q4H PRN IVP Moderate Pain (Pain Scale 4-6) 02/06/18 11:00 02/12/18 19:59 Hydromorphone HCl (Dilaudid) 2 mg Q4H PRN IVP Severe Pain (Pain Scale 7-10) 02/05/18 20:00 02/12/18 19:59 02/08/18 03:58 Iopamidol (Isovue-300 100ml) 100 ml NOW PRN INJ Radiology Procedure 02/05/18 11:45 Lorazepam (Ativan 2mg/ml 1ml) 0.5 mg Q4H PRN IV For Anxiety 02/05/18 20:00 02/12/18 19:59 Metronidazole 100 ml @ 100 mls/hr Q8HR IVPB 02/06/18 22:00 02/13/18 21:59 02/08/18 05:59 Ondansetron HCl (Zofran) 4 mg Q6H PRN IVP Nausea & Vomiting 02/05/18 20:00 03/07/18 19:59 02/07/18 15:38 Piperacillin Sod/ Tazobactam Sod 3.375 gm/Sodium Chloride 110 ml @ 27.5 mls/hr EVERY 8 HOURS IVPB 02/05/18 22:00 02/10/18 21:59 02/08/18 05:59 Subjective ROS Limited/Unobtainable: No Allergies: Coded Allergies: No Known Allergies (Unverified , 03/17/16) Objective Last 24 Hour Vital Signs Date Time Temp Pulse Resp B/P (MAP) Pulse Ox O2 Delivery O2 Flow Rate FiO2 02/10/18 09:00 Room Air 02/10/18 08:00 98.6 90 18 112/67 (82) 98 02/10/18 08:00 90 02/10/18 04:00 97 02/10/18 04:00 98.7 100 20 140/84 (102) 95 02/10/18 00:00 81 02/10/18 00:00 98.1 85 19 135/79 (97) 97 02/09/18 23:01 98.2 02/09/18 21:00 Room Air 02/09/18 20:00 87 02/09/18 20:00 98.3 90 22 129/79 (96) 96 02/09/18 16:00 98.2 101 18 140/79 (99) 97 02/09/18 12:00 96 02/09/18 12:00 98.1 92 18 148/90 (109) 97 Intake and Output 02/09/18 02/10/18 19:00 07:00 Intake Total 240 ml Balance 240 ml Intake Oral 240 ml # Voids 1 3 # Bowel Movements 1 1 Laboratory Tests 02/10/18 07:47: White Blood Count 9.1, Red Blood Count 4.38, Hemoglobin 11.7L, Hematocrit 35.1L , Mean Corpuscular Volume 80, Mean Corpuscular Hemoglobin 26.7L, Mean Corpuscular Hemoglobin Concent 33.3, Red Cell Distribution Width 10.7L, Platelet Count 228, Mean Platelet Volume 7.6, Neutrophils (%) (Auto) 60.5, Lymphocytes (%) (Auto) 25.9, Monocytes (%) (Auto) 11.0H, Eosinophils (%) (Auto) 1.8, Basophils (%) (Auto) 0.8, Sodium Level 141, Potassium Level 3.5, Chloride Level 106, Carbon Dioxide Level 26, Anion Gap 10, Blood Urea Nitrogen 2L, Creatinine 1.0, Estimat Glomerular Filtration Rate > 60, Glucose Level 109H, Calcium Level 8.0L Current Medications Medications (Trade) Dose Ordered Sig/Calos Route PRN Reason Start Time Stop Time Status Last Admin Dose Admin Acetaminophen (Tylenol) 650 mg Q4H PRN ORAL T>100.5 02/05/18 20:00 03/07/18 19:59 02/06/18 23:28 Dextrose (Dextrose 50%) 25 ml Q30M PRN IV Hypoglycemia 02/05/18 20:00 03/07/18 19:59 Dextrose (Dextrose 50%) 50 ml Q30M PRN IV Hypoglycemia 02/05/18 20:00 03/07/18 19:59 Dextrose/ Electrolytes 1,000 ml @ 150 mls/hr Q6H40M IV 02/05/18 21:01 03/07/18 21:00 02/10/18 08:45 Famotidine (Pepcid I.v.) 20 mg Q12HR IVP 02/05/18 21:00 03/07/18 20:59 02/10/18 08:45 Heparin Sodium (Porcine) (Heparin 5000 units/ml) 5,000 units EVERY 12 HOURS SUBQ 02/05/18 21:00 03/07/18 20:59 02/08/18 20:54 Hydromorphone HCl (Dilaudid) 0.5 mg Q2H PRN IVP Mild Pain (Pain Scale 1-3) 02/05/18 20:00 02/12/18 19:59 02/06/18 16:58 Hydromorphone HCl (Dilaudid) 1 mg Q4H PRN IVP Moderate Pain (Pain Scale 4-6) 02/06/18 11:00 02/12/18 19:59 02/10/18 03:46 Hydromorphone HCl (Dilaudid) 2 mg Q4H PRN IVP Severe Pain (Pain Scale 7-10) 02/05/18 20:00 02/12/18 19:59 02/08/18 09:22 Iopamidol (Isovue-300 100ml) 100 ml NOW PRN INJ Radiology Procedure 02/05/18 11:45 Lorazepam (Ativan 2mg/ml 1ml) 0.5 mg Q4H PRN IV For Anxiety 02/05/18 20:00 02/12/18 19:59 Metronidazole 100 ml @ 100 mls/hr Q8HR IVPB 02/06/18 22:00 02/13/18 21:59 02/10/18 05:28 Ondansetron HCl (Zofran) 4 mg Q6H PRN IVP Nausea & Vomiting 02/05/18 20:00 03/07/18 19:59 02/07/18 15:38 Piperacillin Sod/ Tazobactam Sod 3.375 gm/Sodium Chloride 110 ml @ 27.5 mls/hr EVERY 8 HOURS IVPB 02/05/18 22:00 02/11/18 21:59 02/10/18 06:25 Cruz Sinha MD Feb 10, 2018 11:25
[2018-02-10 12:00] VITALS: BP 117/64
--- NOTE | 2018-02-10 13:08 | General Surgery Progress Note ---
General Surgery-Progress Note Subjective Symptoms: improved, tolerating diet, passing flatus Additional Comments pain improved. awaiting BM. Objective Last 24 Hour Vital Signs Date Time Temp Pulse Resp B/P (MAP) Pulse Ox O2 Delivery O2 Flow Rate FiO2 02/10/18 09:00 Room Air 02/10/18 08:00 98.6 90 18 112/67 (82) 98 02/10/18 08:00 90 02/10/18 04:00 97 02/10/18 04:00 98.7 100 20 140/84 (102) 95 02/10/18 00:00 81 02/10/18 00:00 98.1 85 19 135/79 (97) 97 02/09/18 23:01 98.2 02/09/18 21:00 Room Air 02/09/18 20:00 87 02/09/18 20:00 98.3 90 22 129/79 (96) 96 02/09/18 16:00 98.2 101 18 140/79 (99) 97 I&O Intake and Output 02/09/18 02/10/18 19:00 07:00 Intake Total 240 ml Balance 240 ml Intake Oral 240 ml # Voids 1 3 # Bowel Movements 1 1 Drains: none Cardiovascular: RSR Respiratory: clear Abdomen: soft, flat, tenderness, present bowel sounds Extremities: no tenderness, no cyanosis, other Laboratory Tests Test 02/10/18 07:47 White Blood Count 9.1 K/UL (4.8-10.8) Red Blood Count 4.38 M/UL (4.20-5.40) Hemoglobin 11.7 G/DL (12.0-16.0) L Hematocrit 35.1 % (37.0-47.0) L Mean Corpuscular Volume 80 FL (80-99) Mean Corpuscular Hemoglobin 26.7 PG (27.0-31.0) L Mean Corpuscular Hemoglobin Concent 33.3 G/DL (32.0-36.0) Red Cell Distribution Width 10.7 % (11.6-14.8) L Platelet Count 228 K/UL (150-450) Mean Platelet Volume 7.6 FL (6.5-10.1) Neutrophils (%) (Auto) 60.5 % (45.0-75.0) Lymphocytes (%) (Auto) 25.9 % (20.0-45.0) Monocytes (%) (Auto) 11.0 % (1.0-10.0) H Eosinophils (%) (Auto) 1.8 % (0.0-3.0) Basophils (%) (Auto) 0.8 % (0.0-2.0) Sodium Level 141 MMOL/L (136-145) Potassium Level 3.5 MMOL/L (3.5-5.1) Chloride Level 106 MMOL/L (98-107) Carbon Dioxide Level 26 MMOL/L (21-32) Anion Gap 10 mmol/L (5-15) Blood Urea Nitrogen 2 mg/dL (7-18) L Creatinine 1.0 MG/DL (0.55-1.30) Estimat Glomerular Filtration Rate > 60 mL/min (>60) Glucose Level 109 MG/DL (74-106) H Calcium Level 8.0 MG/DL (8.5-10.1) L Plan Problems: (1) Diverticulitis Assessment & Plan: 57 year old female with acute proximal sigmoid diverticulitis with microperforation Febrile, HD stable, labs noted. Exam with lower abdominal tenderness, rebound, and guarding on deep palpation. afebrile, HD stable leukocytosis resolved abd tender almost resolved. minimal on exam Regular diet IV fluids IV Abx medical management of acute diverticulitis. will hopefully respond but if worsening condition may require surgical intervention or possibly radiological. will follow clinically thank you for this consultation William Mcpherson Feb 10, 2018 13:08
[2018-02-10 16:00] VITALS: BP 130/75
[2018-02-10 20:00] VITALS: BP 138/80
[2018-02-11 03:42] VITALS: BP 132/57
[2018-02-11] MEDS: Piperacillin/Tazobactam 3.375 GM in NS 110 ML IVPB SCH (06:31)
[2018-02-11 07:42] LABS: BASOPHILS % (AUTO) 0.8 % (0.0-2.0); EOSINOPHILS % (AUTO) 2.4 % (0.0-3.0); HEMATOCRIT 34.5 % (37.0-47.0); HEMOGLOBIN 11.8 G/DL (12.0-16.0); LYMPHOCYTES % (AUTO) 25.1 % (20.0-45.0); MEAN CORPUSCULAR VOLUME 80 FL (80-99); MONOCYTES % (AUTO) 11.2 % (1.0-10.0); NEUTROPHILS % (AUTO) 60.5 % (45.0-75.0); PLATELET COUNT 248 K/UL (150-450); RED BLOOD COUNT 4.32 M/UL (4.20-5.40); RED CELL DISTRIBUTION WIDTH 10.5 % (11.6-14.8); WHITE BLOOD COUNT 8.8 K/UL (4.8-10.8)
[2018-02-11 07:53] LABS: ANION GAP 8 mmol/L (5-15); BLOOD UREA NITROGEN 2 mg/dL (7-18); CARBON DIOXIDE 26 MMOL/L (21-32); CHLORIDE 106 MMOL/L (98-107); CREATININE 0.9 MG/DL (0.55-1.30); POTASSIUM 3.2 MMOL/L (3.5-5.1); SODIUM 140 MMOL/L (136-145)
[2018-02-11 08:00] VITALS: BP 143/90
[2018-02-11] MEDS: Heparin 5000 units/ml inj SUBQ SCH (08:46)
--- NOTE | 2018-02-11 08:53 | Pulmonology Progress Note ---
Assessment/Plan Assessment/Plan IMPRESSION: 1. Diverticulitis with microperforation. PLAN 1. Follow abdominal exam; benign today 2. Pain control 3. Continue broad-spectrum antibiotics. 4. SCDs and DVT prophylaxis. 5. Tolerating diet 6. Await BM DC home today Discussed with surgery Matias Bass M.D. Subjective Interval Events: Better; tolerating diet Constitutional: Reports: no symptoms HEENT: Repors: no symptoms Respiratory: Reports: no symptoms Cardiovascular: Reports: no symptoms Gastrointestinal/Abdominal: Reports: no symptoms Allergies: Coded Allergies: No Known Allergies (Unverified , 03/17/16) Objective Last 24 Hour Vital Signs Date Time Temp Pulse Resp B/P (MAP) Pulse Ox O2 Delivery O2 Flow Rate FiO2 02/11/18 04:00 85 02/11/18 03:42 98.3 84 19 132/57 (82) 94 02/11/18 00:00 90 02/10/18 21:00 Room Air 02/10/18 20:00 90 02/10/18 20:00 98.4 90 18 138/80 (99) 95 02/10/18 16:00 98.8 98 18 130/75 (93) 98 02/10/18 16:00 96 02/10/18 12:00 99.0 85 18 117/64 (81) 97 02/10/18 12:00 90 02/10/18 09:00 Room Air Intake and Output 02/10/18 02/11/18 19:00 07:00 Intake Total 467.5 ml 1041 ml Balance 467.5 ml 1041 ml Intake Oral 240 ml 120 ml IV Total 227.5 ml 921 ml # Voids 4 2 # Bowel Movements 1 General Appearance: no acute distress HEENT: normocephalic Respiratory/Chest: chest wall non-tender, lungs clear Cardiovascular: normal peripheral pulses Abdomen: normal bowel sounds Laboratory Tests 02/11/18 05:49: White Blood Count 8.8, Red Blood Count 4.32, Hemoglobin 11.8L, Hematocrit 34.5L , Mean Corpuscular Volume 80, Mean Corpuscular Hemoglobin 27.3, Mean Corpuscular Hemoglobin Concent 34.1, Red Cell Distribution Width 10.5L, Platelet Count 248, Mean Platelet Volume 7.8, Neutrophils (%) (Auto) 60.5, Lymphocytes (%) (Auto) 25.1, Monocytes (%) (Auto) 11.2H, Eosinophils (%) (Auto) 2.4, Basophils (%) (Auto) 0.8, Sodium Level 140, Potassium Level 3.2L, Chloride Level 106, Carbon Dioxide Level 26, Anion Gap 8, Blood Urea Nitrogen 2L, Creatinine 0.9, Estimat Glomerular Filtration Rate > 60, Glucose Level 97, Calcium Level 8.0L Current Medications Medications (Trade) Dose Ordered Sig/Calos Route PRN Reason Start Time Stop Time Status Last Admin Dose Admin Acetaminophen (Tylenol) 650 mg Q4H PRN ORAL T>100.5 02/05/18 20:00 03/07/18 19:59 02/06/18 23:28 Dextrose (Dextrose 50%) 25 ml Q30M PRN IV Hypoglycemia 02/05/18 20:00 03/07/18 19:59 Dextrose (Dextrose 50%) 50 ml Q30M PRN IV Hypoglycemia 02/05/18 20:00 03/07/18 19:59 Dextrose/ Electrolytes 1,000 ml @ 50 mls/hr Q20H IV 02/10/18 13:11 03/12/18 13:10 02/10/18 22:32 Famotidine (Pepcid I.v.) 20 mg Q12HR IVP 02/05/18 21:00 03/07/18 20:59 02/11/18 08:44 Heparin Sodium (Porcine) (Heparin 5000 units/ml) 5,000 units EVERY 12 HOURS SUBQ 02/05/18 21:00 03/07/18 20:59 02/11/18 08:46 Hydromorphone HCl (Dilaudid) 0.5 mg Q2H PRN IVP Mild Pain (Pain Scale 1-3) 02/05/18 20:00 02/12/18 19:59 02/06/18 16:58 Hydromorphone HCl (Dilaudid) 1 mg Q4H PRN IVP Moderate Pain (Pain Scale 4-6) 02/06/18 11:00 02/12/18 19:59 02/10/18 03:46 Hydromorphone HCl (Dilaudid) 2 mg Q4H PRN IVP Severe Pain (Pain Scale 7-10) 02/05/18 20:00 02/12/18 19:59 02/10/18 20:36 Iopamidol (Isovue-300 100ml) 100 ml NOW PRN INJ Radiology Procedure 02/05/18 11:45 Lorazepam (Ativan 2mg/ml 1ml) 0.5 mg Q4H PRN IV For Anxiety 02/05/18 20:00 02/12/18 19:59 Metronidazole 100 ml @ 100 mls/hr Q8HR IVPB 02/06/18 22:00 02/13/18 21:59 02/11/18 05:31 Ondansetron HCl (Zofran) 4 mg Q6H PRN IVP Nausea & Vomiting 02/05/18 20:00 03/07/18 19:59 02/07/18 15:38 Piperacillin Sod/ Tazobactam Sod 3.375 gm/Sodium Chloride 110 ml @ 27.5 mls/hr EVERY 8 HOURS IVPB 02/05/18 22:00 02/11/18 21:59 02/11/18 06:31 Matias Bass MD Feb 11, 2018 08:53
[2018-02-11] MEDS ORDERED: CIPRO500 MG PO (08:55)
--- NOTE | 2018-02-11 10:40 | GI Progress Note ---
Assessment/Plan Problems: (1) Diverticulitis ICD Codes: K57.92 - Diverticulitis of intestine, part unspecified, without perforation or abscess without bleeding SNOMED: [id number] Status: stable Status Narrative Discussed with Dr. Sylvester. Assessment/Plan fu surgical recommendation r/o possible colonic perforation >> strict NPO medical management bowel rest >> CLD, adv as tolerated >> tolerating regular diet IV hydration IV Abx >> transition to PO Cipro + Flagyl x 10 days after dc pain mgmt fu labs Pt will require colonoscopy x 2 months after dc date. The patient was seen and examined at bedside and all new and available data was reviewed in the patients chart. I agree with the above findings, impression and plan. (Patient seen earlier today. Signature stamp does not reflect patient encounter time.). - Brandt Sylvester MD Subjective Subjective hungry tolerating diet Objective Last 24 Hour Vital Signs Date Time Temp Pulse Resp B/P (MAP) Pulse Ox O2 Delivery O2 Flow Rate FiO2 02/11/18 09:00 Room Air 02/11/18 08:00 97.5 82 19 143/90 (107) 96 02/11/18 07:56 68 02/11/18 04:00 85 02/11/18 03:42 98.3 84 19 132/57 (82) 94 02/11/18 00:00 90 02/10/18 21:00 Room Air 02/10/18 20:00 90 02/10/18 20:00 98.4 90 18 138/80 (99) 95 02/10/18 16:00 98.8 98 18 130/75 (93) 98 02/10/18 16:00 96 02/10/18 12:00 99.0 85 18 117/64 (81) 97 02/10/18 12:00 90 Intake and Output 02/10/18 02/11/18 19:00 07:00 Intake Total 467.5 ml 1041 ml Balance 467.5 ml 1041 ml Intake Oral 240 ml 120 ml IV Total 227.5 ml 921 ml # Voids 4 2 # Bowel Movements 1 Laboratory Tests Test 02/11/18 05:49 White Blood Count 8.8 K/UL (4.8-10.8) Red Blood Count 4.32 M/UL (4.20-5.40) Hemoglobin 11.8 G/DL (12.0-16.0) L Hematocrit 34.5 % (37.0-47.0) L Mean Corpuscular Volume 80 FL (80-99) Mean Corpuscular Hemoglobin 27.3 PG (27.0-31.0) Mean Corpuscular Hemoglobin Concent 34.1 G/DL (32.0-36.0) Red Cell Distribution Width 10.5 % (11.6-14.8) L Platelet Count 248 K/UL (150-450) Mean Platelet Volume 7.8 FL (6.5-10.1) Neutrophils (%) (Auto) 60.5 % (45.0-75.0) Lymphocytes (%) (Auto) 25.1 % (20.0-45.0) Monocytes (%) (Auto) 11.2 % (1.0-10.0) H Eosinophils (%) (Auto) 2.4 % (0.0-3.0) Basophils (%) (Auto) 0.8 % (0.0-2.0) Sodium Level 140 MMOL/L (136-145) Potassium Level 3.2 MMOL/L (3.5-5.1) L Chloride Level 106 MMOL/L (98-107) Carbon Dioxide Level 26 MMOL/L (21-32) Anion Gap 8 mmol/L (5-15) Blood Urea Nitrogen 2 mg/dL (7-18) L Creatinine 0.9 MG/DL (0.55-1.30) Estimat Glomerular Filtration Rate > 60 mL/min (>60) Glucose Level 97 MG/DL (74-106) Calcium Level 8.0 MG/DL (8.5-10.1) L Height (Feet): 5 Height (Inches): 6.00 Weight (Pounds): 240 General Appearance: WD/WN, no apparent distress, alert Cardiovascular: normal rate Respiratory/Chest: normal breath sounds, no respiratory distress Abdominal Exam: normal bowel sounds, non tender, soft Extremities: normal range of motion, non-tender Casey Concepcion NP Feb 11, 2018 10:40
[2018-02-11 12:00] VITALS: BP 143/84
[2018-02-11] MEDS ORDERED: METRONIDAZOLE500 MG ORAL (12:40)
--- NOTE | 2018-02-11 13:59 | General Surgery Progress Note ---
General Surgery-Progress Note Subjective Symptoms: improved, pain absent, tolerating diet, passing flatus, BM Objective Last 24 Hour Vital Signs Date Time Temp Pulse Resp B/P (MAP) Pulse Ox O2 Delivery O2 Flow Rate FiO2 02/11/18 12:00 98.6 70 20 143/84 (103) 97 02/11/18 11:43 83 02/11/18 09:00 Room Air 02/11/18 08:00 97.5 82 19 143/90 (107) 96 02/11/18 07:56 68 02/11/18 04:00 85 02/11/18 03:42 98.3 84 19 132/57 (82) 94 02/11/18 00:00 90 02/10/18 21:00 Room Air 02/10/18 20:00 90 02/10/18 20:00 98.4 90 18 138/80 (99) 95 02/10/18 16:00 98.8 98 18 130/75 (93) 98 02/10/18 16:00 96 I&O Intake and Output 02/10/18 02/11/18 19:00 07:00 Intake Total 467.5 ml 1041 ml Balance 467.5 ml 1041 ml Intake Oral 240 ml 120 ml IV Total 227.5 ml 921 ml # Voids 4 2 # Bowel Movements 1 Cardiovascular: RSR Respiratory: clear Abdomen: soft, flat, non-tender, present bowel sounds Extremities: no tenderness, no cyanosis Laboratory Tests Test 02/11/18 05:49 White Blood Count 8.8 K/UL (4.8-10.8) Red Blood Count 4.32 M/UL (4.20-5.40) Hemoglobin 11.8 G/DL (12.0-16.0) L Hematocrit 34.5 % (37.0-47.0) L Mean Corpuscular Volume 80 FL (80-99) Mean Corpuscular Hemoglobin 27.3 PG (27.0-31.0) Mean Corpuscular Hemoglobin Concent 34.1 G/DL (32.0-36.0) Red Cell Distribution Width 10.5 % (11.6-14.8) L Platelet Count 248 K/UL (150-450) Mean Platelet Volume 7.8 FL (6.5-10.1) Neutrophils (%) (Auto) 60.5 % (45.0-75.0) Lymphocytes (%) (Auto) 25.1 % (20.0-45.0) Monocytes (%) (Auto) 11.2 % (1.0-10.0) H Eosinophils (%) (Auto) 2.4 % (0.0-3.0) Basophils (%) (Auto) 0.8 % (0.0-2.0) Sodium Level 140 MMOL/L (136-145) Potassium Level 3.2 MMOL/L (3.5-5.1) L Chloride Level 106 MMOL/L (98-107) Carbon Dioxide Level 26 MMOL/L (21-32) Anion Gap 8 mmol/L (5-15) Blood Urea Nitrogen 2 mg/dL (7-18) L Creatinine 0.9 MG/DL (0.55-1.30) Estimat Glomerular Filtration Rate > 60 mL/min (>60) Glucose Level 97 MG/DL (74-106) Calcium Level 8.0 MG/DL (8.5-10.1) L Plan Problems: (1) Diverticulitis Assessment & Plan: 57 year old female with acute proximal sigmoid diverticulitis with microperforation Febrile, HD stable, labs noted. Exam with lower abdominal tenderness, rebound, and guarding on deep palpation. afebrile, HD stable leukocytosis resolved abd non tender Regular diet medical management of acute diverticulitis. d/c home f/u with PCP f/u outpatient thank you for this consultation William Mcpherson Feb 11, 2018 13:59
[2018-02-12] MEDS ORDERED: LUMIGAN2.5 ML BOTH EYES (19:18)
--- NOTE | 2018-02-14 07:43 | Discharge Summary ---
Discharge Summary Discharge Summary _ DATE OF ADMISSION: 02/05/2018 DATE OF DISCHARGE: 02/11/2018 REASON FOR ADMISSION: 57 years old female with past medical history of hypertension, asthma, hepatitis C, status post knee replacement, presented to emergency room complaining of abdominal pain. Upon evaluation vital signs reviewed tachycardia. CT scan of abdomen and pelvis demonstrated acute proximal sigmoid diverticulitis with microperforation. Enlarged uterus with multiple masses consistent with fibroids, appearance chronic and degenerated. Other findings included degenerative spondylosis, pulmonary dependent atelectatic changes. Chest x-ray revealed central bronchial wall thickening possibly indicative of chronic bronchitis changes. No acute process otherwise. Urinalysis with few bacteria and pyuria, +3 leukocyte esterase. Laboratory workup revealed no leukocytosis , stable renal parameters and electrolytes. Stable LFT and lipase. Patient started on IV hydration and empiric antibiotics, analgesic provided . Patient admitted with diagnoses of diverticulitis , UTI. CONSULTANTS: GI specialist Dr. Sylvester surgery Dr. Mcpherson [facility]RSE: Patient admitted to the hospital . General surgery and GI specialist closely followed. Patient initially kept n.p.o, to allow bowel rest. IV fluids continued. Empiric antibiotic continued. Patient was started on clear liquid diet and was advanced as tolerated. IV antibiotics slowly transitioned to oral Cipro and Flagyl to continue for 10 days after discharge. Pain management was addressed, and pain was controlled. Surgeon recommended medical management of acute diverticulitis. Serial abdominal exam were benign. GI specialist recommended colonoscopy in 2 months after discharge date Symptomatic treatment provided. SCD and DVT prophylaxis provided. Bowel regimen instituted. Urine culture revealed E. coli and mixed gram-positive organism. Blood cultures were negative. Patient was already on antibiotics for diverticulitis. LFT remained stable. Renal parameters and electrolytes were closely monitored. Potassium replaced. Respiratory status remained stable. Supplemental oxygen provided as needed to keep pulse oximetry above 92%. No evidence of asthma exacerbation. Patient clinically improved and was stable for discharge home FINAL DIAGNOSES: Diverticulitis with microperforation E. coli UTI History of asthma DISCHARGE MEDICATIONS: See Medication Reconciliation list. DISCHARGE INSTRUCTIONS: Patient was discharged home. Follow-up with a primary care provider in 1 week. Follow-up with colonoscopy in 2 months. I have been assigned to dictate discharge summary for this account. I was not involved in the patient's management. Yojana Lincoln NP Feb 14, 2018 07:43
== END 2018-02-11 13:15 | disposition home or self-care (01) | DRG 392 ==
LOC: EMR 13:00 → 4E 18:07 → EDBEDREQ 18:41 → EDBEDREQSVC 19:55 → EDBEDREQ 20:19 → 2E 20:34
DX: K57.20 Diverticulitis of large intestine with perforation and abscess without bleeding (principal); N39.0 Urinary tract infection, site not specified; B96.20 Unspecified Escherichia coli [E. coli] as the cause of diseases classified elsewhere; J45.909 Unspecified asthma, uncomplicated; B19.20 Unspecified viral hepatitis C without hepatic coma
CPT/HCPCS: 36415; 71045; 74177; 80048; 80053; 80061; 81003; 82248; 83036; 83690; 85025; 85610; 85730; 87040; 87086; 87181; 93005; 96361; 96365; 96368; 96375; 96376; 99285; J2405; J8499

== ENCOUNTER 2018-02-12 12:12 | Emergency (ER) | payer OTHER ==
[~2018-02-12] VITALS: Ht 167.6 cm; Wt 127.0 kg
[~2018-02-12 12:12] MED LIST changes: +CIPRO500 MG PO; +METRONIDAZOLE500 MG ORAL; +NKM
[2018-02-12 12:49] VITALS: BP 134/89
[2018-02-12] MEDS ORDERED: Morphine Sulfate 4mg/ml Inj (IV/IM USE ONLY) IVP ONE (13:45)
[2018-02-12] MEDS ORDERED: Morphine Sulfate 4mg/ml Inj (IV/IM USE ONLY) IM ONE (13:45)
[2018-02-12 14:09] LABS: BASOPHILS % (AUTO) 1.7 % (0.0-2.0); EOSINOPHILS % (AUTO) 1.5 % (0.0-3.0); HEMATOCRIT 40.6 % (37.0-47.0); HEMOGLOBIN 13.6 G/DL (12.0-16.0); LYMPHOCYTES % (AUTO) 25.7 % (20.0-45.0); MEAN CORPUSCULAR VOLUME 80 FL (80-99); MONOCYTES % (AUTO) 10.7 % (1.0-10.0); NEUTROPHILS % (AUTO) 60.4 % (45.0-75.0); PLATELET COUNT 333 K/UL (150-450); RED BLOOD COUNT 5.07 M/UL (4.20-5.40); RED CELL DISTRIBUTION WIDTH 10.9 % (11.6-14.8); WHITE BLOOD COUNT 8.3 K/UL (4.8-10.8)
[2018-02-12 14:23] LABS: ANION GAP 11 mmol/L (5-15); BLOOD UREA NITROGEN 6 mg/dL (7-18); CALCIUM 8.6 MG/DL (8.5-10.1); CARBON DIOXIDE 25 MMOL/L (21-32); CHLORIDE 103 MMOL/L (98-107); POTASSIUM 3.5 MMOL/L (3.5-5.1); SODIUM 139 MMOL/L (136-145)
[2018-02-12 14:28] LABS: ALANINE AMINOTRANSFERASE 18 U/L (12-78); ALBUMIN 2.9 G/DL (3.4-5.0); ALBUMIN/GLOBULIN RATIO 0.5 (1.0-2.7); ALKALINE PHOSPHATASE 61 U/L (46-116); ASPARTATE AMINO TRANSFERASE 27 U/L (15-37); BILIRUBIN,TOTAL 0.3 MG/DL (0.2-1.0)
[2018-02-12] MEDS ORDERED: Isovue-300 100ml vial INJ PRN (14:30)
[2018-02-12 15:24] LABS: APPEARANCE,URINE CLOUDY; BILIRUBIN, URINE 1+ (NEGATIVE); COLOR,URINE BROWN; GLUCOSE, URINE (UA) NEGATIVE (NEGATIVE); KETONES,URINE 2+ (NEGATIVE); LEUKOCYTE ESTERASE ,URINE 3+ (NEGATIVE); NITRITE,URINE POSITIVE (NEGATIVE); PH,URINE 5 (4.5-8.0); PROTEIN,URINE 2+ (NEGATIVE); UROBILINOGEN,URINE 1 MG/DL (0.0-1.0)
[2018-02-12] MEDS ORDERED: Morphine Sulfate 4mg/ml Inj (IV/IM USE ONLY) IVP SCH (15:45)
[2018-02-12] MEDS ORDERED: Morphine Sulfate 4mg/ml Inj (IV/IM USE ONLY) ONE (15:54)
[2018-02-12] MEDS ORDERED: Phenazopyridine 200mg tab ORAL ONE (16:15)
--- NOTE | 2018-02-12 17:10 | Diagnostic Imaging Report ---
Clinical Indication: Abdominal pain, 10 out of 10 recent history of diverticulitis Technique: Patient given oral contrast. IV administration nonionic contrast. Venous phase spiral acquisition obtained through the abdomen and pelvis. Multiplanar reconstructions were generated. Total dose length product 1032.84 mGycm. CTDIvol(s) 19.51 mGy. Dose reduction achieved using automated exposure control Comparison: 02/05/2018 Findings: At the anterior aspect of the uterus, possibly between the myometrium and the serosa, there is now a mixed gas and fluid collection which measures 6.3 cm transverse by 3.7 cm AP by 4.2 cm craniocaudad. This appears to be indenting the anterior surface of the lower uterus This is in the location of the gas bubbles described on the previous exam. This also tracks up into the right adnexal region. Gas bubbles are seen connecting this with the edge of the proximal sigmoid colon. As previously, a small fluid collection is seen posterior to the uterus, presumably in the peritoneal space. However, this now has a enhancing rim. This measures 3.5 cm transverse by 1.9 cm AP. No gas is seen in this collection. As previously, inflammatory changes are seen within the pericolonic fat surrounding the proximal sigmoid colon. Previously demonstrated small gas bubbles within the anterior peritoneal space are not evident currently, although there is some thickening of the peritoneum in this region that was not evident previously. Of note, the anterior collection is immediately adjacent to the posterior wall of the bladder, although there still appears to be a fat plane between it and the bladder. The bladder is also immediately adjacent to portions of the sigmoid colon. Again demonstrated is enlargement of the uterus, with multiple masses, few of which are calcified. No adnexal mass demonstrated. The appendix is normal. No small bowel distention. Ingested contrast is seen throughout the entirety of the small bowel and into the colon. No small bowel wall thickening. Again demonstrated is a tiny fat-containing umbilical hernia. The liver, gallbladder, bile ducts, pancreas, spleen, adrenals are unremarkable. No retroperitoneal mass or adenopathy. Previously described subcentimeter low-attenuation renal lesions are less evident currently. Interim development of small bilateral pleural effusions. The bones are unremarkable Impression: 6.3 x 3.7 x 4.2 cm gas and fluid collection immediately adjacent to and possibly within the serosa of the anterior uterus. This is in the same location as gas bubbles seen on the previous exam, and likely reflects interim formation of a peridiverticular abscess. There does appear to be a fistulous connection between this collection and a proximal sigmoid diverticulum. 3.5 x 1.9 cm fluid collection in the pelvic cul-de-sac, corresponding to what appear to be free fluid on the previous exam, now rim-enhancing and probably representing a small abscesses well. Previously demonstrated anterior lower pelvic intraperitoneal gas bubbles are no longer evident, and no abnormal fluid collections are seen in this area, although there is some phlegmon is changes thickening of the anterior peritoneal space. Other inflammatory changes seen in the region of the proximal sigmoid colon, as previously, likewise consistent with ongoing acute diverticulitis No definite fistulous connection to the bladder is demonstrated, although referring physician describes clinical evidence of urinary tract infection. No evidence of small bowel obstruction. Enlarged uterus with multiple masses, consistent with fibroids, some degenerated Small bilateral pleural effusions, new since the prior exam Other findings as noted, including small fat-containing umbilical hernia Findings discussed by phone with Ghada Wakefield in the emergency room at the time of interpretation The CT scanner at [facility] is accredited by the [employer] and the scans are performed using protocols designed to limit radiation exposure to as low as reasonably achievable to attain images of sufficient resolution adequate for diagnostic evaluation.
[2018-02-12] MEDS ORDERED: Zosyn 2.25gm inj IV ONE (17:15)
--- NOTE | 2018-02-12 17:17 | Emergency Room Report ---
History of Present Illness General Chief Complaint: Abdominal Pain Source: Patient, Caregiver Present Illness HPI 57 YO Female presents to the ED C/O 12/19 in severity pain in the lower abdomen x 1 week. pt. reports that she was d/c yesterday. Pt. states her pain has been constant since prior to her first visit. Pt. denies fevers, chills, constipation , diarrhea, dysuria, or urinary frequency. She reports dark colored urine and painful bowel movements. Denies blood in the stool. Pt. states she has been taking prescribed medications as directed. Allergies: Coded Allergies: No Known Allergies (Unverified , 03/17/16) Patient History Past Medical History: see triage record Past Surgical History: none Pertinent Family History: none Now: No Reviewed Nursing Documentation: PMH: Agreed; PSxH: Agreed Nursing Documentation-PMH Past Medical History: No History, Except For Hx Hypertension: Yes Hx Asthma: Yes Hx Neurological Problems: No Review of Systems All Other Systems: negative except mentioned in HPI Physical Exam Vital Signs Date Time Temp Pulse Resp B/P (MAP) Pulse Ox O2 Delivery O2 Flow Rate FiO2 02/12/18 12:20 98.1 88 16 134/89 95 Room Air 02/12/18 12:49 100 Sp02 EP Interpretation: reviewed, normal General Appearance: alert, GCS 15, non-toxic, mild distress, obese Head: normocephalic, atraumatic Eyes: bilateral eye normal inspection, bilateral eye PERRL ENT: hearing grossly normal, normal voice Neck: full range of motion Respiratory: lungs clear, normal breath sounds, speaking full sentences Cardiovascular #1: regular rate, rhythm Gastrointestinal: normal bowel sounds, soft, non-distended, no guarding, tenderness - primarily in LLQ. Rectal: deferred Genitourinary: normal inspection, no CVA tenderness Musculoskeletal: back normal, gait/station normal, normal range of motion Neurologic: alert, oriented x3, responsive, motor strength/tone normal, sensory intact, normal gait, speech normal, grossly normal Psychiatric: judgement/insight normal Skin: normal color, no rash, warm/dry, well hydrated Medical Decision Making PA Attestation Dr. Wilson is my supervising Physician whom patient management has been discussed with. Diagnostic Impression: Primary Impression: Pelvic abscess in female Additional Impression: Post-op pain ER Course 57 YO Female presents to the ED C/O 12/19 in severity pain in the lower abdomen x 1 week. pt. reports that she was d/c yesterday. Pt. states her pain has been constant since prior to her first visit. Pt. denies fevers, chills, constipation , diarrhea, dysuria, or urinary frequency. She reports dark colored urine and painful bowel movements. Denies blood in the stool. Pt. states she has been taking prescribed medications as directed. Ddx considered but are not limited to Diverticulitis, acute appy, diarrhea,UC, PUD, GE, pancreatitis, gallstone Vital signs: are WNL, pt. is afebrile H&PE are most consistent with abdominal pain. ORDERS: -CBC, CMP, lipase: Unremarkable - UA: Nitrite pos. blood, bacteria and mucus- consistent with recently dx of UTI - possibly unresolved. Review of Microbiology C&S report from 02/05- Identified both E.coli and a mixed gram pos. bacteria-- both Sensitive to : Zosyn, Cipro, Rocephin, Keflex and Macrobid. Resistant to : Bactrim. -CT abdomen and pelvis with contrast ED INTERVENTIONS: -Morphine 4mg x 2 - Flagyl IV -Zosyn IV DISPOSITION: at this time pt. will be transferred to [facility] admitted to Dr. Zhou for Pelvic abscess. Dr. Zhou agreed to admit the pt. and to continue pt. care management. Labs Test 02/12/18 13:43 02/12/18 14:45 White Blood Count 8.3 K/UL (4.8-10.8) Red Blood Count 5.07 M/UL (4.20-5.40) Hemoglobin 13.6 G/DL (12.0-16.0) Hematocrit 40.6 % (37.0-47.0) Mean Corpuscular Volume 80 FL (80-99) Mean Corpuscular Hemoglobin 26.7 PG (27.0-31.0) Mean Corpuscular Hemoglobin Concent 33.4 G/DL (32.0-36.0) Red Cell Distribution Width 10.9 % (11.6-14.8) Platelet Count 333 K/UL (150-450) Mean Platelet Volume 7.9 FL (6.5-10.1) Neutrophils (%) (Auto) 60.4 % (45.0-75.0) Lymphocytes (%) (Auto) 25.7 % (20.0-45.0) Monocytes (%) (Auto) 10.7 % (1.0-10.0) Eosinophils (%) (Auto) 1.5 % (0.0-3.0) Basophils (%) (Auto) 1.7 % (0.0-2.0) Sodium Level 139 MMOL/L (136-145) Potassium Level 3.5 MMOL/L (3.5-5.1) Chloride Level 103 MMOL/L (98-107) Carbon Dioxide Level 25 MMOL/L (21-32) Anion Gap 11 mmol/L (5-15) Blood Urea Nitrogen 6 mg/dL (7-18) Creatinine 1.0 MG/DL (0.55-1.30) Estimat Glomerular Filtration Rate > 60 mL/min (>60) Glucose Level 101 MG/DL (74-106) Calcium Level 8.6 MG/DL (8.5-10.1) Total Bilirubin 0.3 MG/DL (0.2-1.0) Aspartate Amino Transf (AST/SGOT) 27 U/L (15-37) Alanine Aminotransferase (ALT/SGPT) 18 U/L (12-78) Alkaline Phosphatase 61 U/L (46-116) Total Protein 9.1 G/DL (6.4-8.2) Albumin 2.9 G/DL (3.4-5.0) Globulin 6.2 g/dL Albumin/Globulin Ratio 0.5 (1.0-2.7) Lipase 70 U/L (73-393) Urine Color Brown Urine Appearance Cloudy Urine pH 5 (4.5-8.0) Urine Specific [place] 1.020 (1.005-1.035) Urine Protein 2+ (NEGATIVE) Urine Glucose (UA) Negative (NEGATIVE) Urine Ketones 2+ (NEGATIVE) Urine Blood 2+ (NEGATIVE) Urine Nitrite Positive (NEGATIVE) Urine Bilirubin 1+ (NEGATIVE) Urine Ictotest Negative (NEGATIVE) Urine Urobilinogen 1 MG/DL (0.0-1.0) Urine Leukocyte Esterase 3+ (NEGATIVE) Urine RBC 5-10 /HPF (0 - 2) Urine WBC 2-4 /HPF (0 - 2) Urine Squamous Epithelial Cells Many /LPF (NONE/OCC) Urine Bacteria Few /HPF (NONE) Urine Mucus Many /LPF (NONE/OCC) CT/MRI/US Diagnostic Results CT/MRI/US Diagnostic Results : Imaging Test Ordered: CT abdomen and pelvis with oral and IV contrast Impression "Most remarkable for 6.3 cm gas and fluid collection immediately adjacent to and perhaps within the serosa of the anterior uterus, as bubbles seen which is consistent with previous exam unlikely interim formation of a peridiverticular abscess. Shows connection between the collection and proximal sigmoid diverticulum, 3.5 cm abscess." Per official radiology report- Please see report for specific details. Last Vital Signs Date Time Temp Pulse Resp B/P (MAP) Pulse Ox O2 Delivery O2 Flow Rate FiO2 02/12/18 12:49 88 16 Room Air 100 02/12/18 12:49 98.1 134/89 95 Disposition: ADMITTED INPATIENT Condition: Serious Physician Consult: Dr. Mcpherson Referrals: Irineo Arriaza DO (PCP) Ghada Wakefield Feb 12, 2018 17:17
[2018-02-12] MEDS ORDERED: Piperacillin/Tazobactam 2.25 GM in NS 55 ML IV ONE (17:30)
[2018-02-12] MEDS ORDERED: HYDROmorphone 1mg/ml Carpuject IVP ONE ×2 (18:00→20:30)
[2018-02-12] MEDS ORDERED: LUMIGAN2.5 ML BOTH EYES (19:18)
[2018-02-12 20:20] VITALS: BP 125/78
[2018-02-12 22:05] VITALS: BP 128/72
[2018-02-12 22:13] VITALS: BP 128/72
== END 2018-02-12 22:13 | disposition short-term general hospital (02) ==
LOC: EMR 13:05 → EDBEDREQ 18:11 → EMR 22:13
DX: L02.818 Cutaneous abscess of other sites (principal); G89.18 Other acute postprocedural pain; J45.909 Unspecified asthma, uncomplicated; I10 Essential (primary) hypertension; J90 Pleural effusion, not elsewhere classified
CPT/HCPCS: 36415; 74177; 80053; 81003; 83690; 85025; 96365; 96368; 96372; 96375; 96376; 99285; J1170; J2270; J2543; Q9967

== ENCOUNTER 2018-03-02 14:33 | Inpatient (IN) | payer OTHER ==
[~2018-03-02] VITALS: Ht 170.2 cm; Wt 114.0 kg
[~2018-03-02 14:33] MED LIST changes: +LUMIGAN2.5 ML BOTH EYES
[2018-03-02] MEDS ORDERED: NORCO 10-325 T1 EACH ORAL (14:42)
[2018-03-02] MEDS ORDERED: Isovue-300 100ml vial INJ PRN (15:15)
[2018-03-02] MEDS ORDERED: Morphine Sulfate 4mg/ml Inj (IV/IM USE ONLY) IVP ONE (15:15)
[2018-03-02 15:40] LABS: BASOPHILS % (AUTO) 1.3 % (0.0-2.0); EOSINOPHILS % (AUTO) 0.5 % (0.0-3.0); HEMATOCRIT 42.9 % (37.0-47.0); LYMPHOCYTES % (AUTO) 25.5 % (20.0-45.0); MEAN CORPUSCULAR VOLUME 83 FL (80-99); MONOCYTES % (AUTO) 12.1 % (1.0-10.0); NEUTROPHILS % (AUTO) 60.5 % (45.0-75.0); PLATELET COUNT 224 K/UL (150-450); RED CELL DISTRIBUTION WIDTH 11.3 % (11.6-14.8); WHITE BLOOD COUNT 7.1 K/UL (4.8-10.8)
[2018-03-02 15:55] LABS: APPEARANCE,URINE SLIGHTLY CLOUDY; BILIRUBIN, URINE NEGATIVE (NEGATIVE); COLOR,URINE BROWN; GLUCOSE, URINE (UA) NEGATIVE (NEGATIVE); KETONES,URINE 1+ (NEGATIVE); LEUKOCYTE ESTERASE ,URINE 3+ (NEGATIVE); NITRITE,URINE NEGATIVE (NEGATIVE); PH,URINE 6 (4.5-8.0); PROTEIN,URINE 2+ (NEGATIVE); UROBILINOGEN,URINE 1 MG/DL (0.0-1.0)
[2018-03-02 15:59] LABS: ANION GAP 12 mmol/L (5-15); BLOOD UREA NITROGEN 9 mg/dL (7-18); CALCIUM 9.4 MG/DL (8.5-10.1); CARBON DIOXIDE 24 MMOL/L (21-32); CHLORIDE 102 MMOL/L (98-107); CREATININE 0.9 MG/DL (0.55-1.30); POTASSIUM 3.6 MMOL/L (3.5-5.1); SODIUM 137 MMOL/L (136-145)
[2018-03-02 16:04] LABS: ALANINE AMINOTRANSFERASE 21 U/L (12-78); ALBUMIN 3.4 G/DL (3.4-5.0); ALBUMIN/GLOBULIN RATIO 0.6 (1.0-2.7); ALKALINE PHOSPHATASE 62 U/L (46-116); ASPARTATE AMINO TRANSFERASE 22 U/L (15-37); BILIRUBIN,TOTAL 0.4 MG/DL (0.2-1.0)
[2018-03-02 16:11] VITALS: BP 145/78
--- NOTE | 2018-03-02 16:45 | Diagnostic Imaging Report ---
EXAM: CT Abdomen and Pelvis With Intravenous Contrast CLINICAL HISTORY: ABD PAIN TECHNIQUE: Axial computed tomography images of the abdomen and pelvis with intravenous contrast. CTDI is 19.66 mGy and DLP is 1065 mGy-cm. One or more of the following dose reduction techniques were used: automated exposure control, adjustment of the mA and/or kV according to patient size, use of iterative reconstruction technique. COMPARISON: CT abdomen and pelvis dated 02/12/18 FINDINGS: Lung bases: Unremarkable. No mass. No consolidation. ABDOMEN: Liver: Unremarkable. No mass. Gallbladder and bile ducts: Unremarkable. No calcified stones. No ductal dilation. Pancreas: Unremarkable. No mass. No ductal dilation. Spleen: Unremarkable. No splenomegaly. Adrenals: Unremarkable. No mass. Kidneys and ureters: Unremarkable. No solid mass. No hydronephrosis. Stomach and bowel: Colonic diverticulosis with segmental wall thickening of the distal sigmoid colon concerning for acute diverticulitis. 5.6 x 5.5 x 4.4 cm peripherally enhancing air-fluid collection adjacent to the distal sigmoid colon, anterior to uterus, and superior to urinary bladder, concerning for a contained perforation versus abscess. No obstruction. PELVIS: Appendix: Appendix appears normal. Bladder: Partially distended without wall thickening or radiodense stones. Reproductive: Multilobulated fibroid uterus, with coarse calcifications. The ovaries are not well seen. ABDOMEN and PELVIS: Intraperitoneal space: Unremarkable. No free air. No significant fluid collection. Bones/joints: No acute fracture. No dislocation. Soft tissues: Unremarkable. Vasculature: Mild atherosclerotic calcifications throughout the abdominal aorta. No abdominal aortic aneurysm. Lymph nodes: Unremarkable. No enlarged lymph nodes. IMPRESSION: 1. Colonic diverticulosis with segmental wall thickening of the distal sigmoid colon concerning for acute diverticulitis. 2. 5.6 x 5.5 x 4.4 cm peripherally enhancing air-fluid collection adjacent to the inflamed distal sigmoid colon, anterior to uterus, and superior to the urinary bladder, concerning for a contained perforation versus abscess. This is not significantly changed in size compared to the prior exam. 3. Multilobulated fibroid uterus, with coarse calcifications.
[2018-03-02] MEDS ORDERED: Piperacillin/Tazobactam 3.375 GM in NS 110 ML IVPB ONE (17:30)
[2018-03-02 17:31] VITALS: BP 131/80
--- NOTE | 2018-03-02 17:48 | Emergency Room Report ---
History of Present Illness General Chief Complaint: Pelvic Pain Source: Patient Present Illness HPI 57-year-old female presents ED for evaluation. Complaining of abdominal pain. 10 out of 10, lower, sharp, nonradiating. Notes nausea and vomiting. Denies fevers or chills. States that she was seen here on 02/19 for the same thing. Was noted to have a "pelvic infection". Was subsequently admitted and transferred to another hospital. States that she was given IV antibiotics and was discharged home on antibiotics. States that pain got worse today. No other aggravating relieving factors. Denies any other associated symptoms Allergies: Coded Allergies: No Known Allergies (Unverified , 03/17/16) Patient History Past Medical History: HTN, asthma Past Surgical History: none Pertinent Family History: none Social History: Denies: smoking, alcohol use, drug use Now: No Immunizations: UTD Reviewed Nursing Documentation: PMH: Agreed; PSxH: Agreed Nursing Documentation-PMH Past Medical History: No History, Except For Hx Hypertension: Yes Hx Asthma: Yes Hx Neurological Problems: No Review of Systems All Other Systems: negative except mentioned in HPI Physical Exam Vital Signs Date Time Temp Pulse Resp B/P (MAP) Pulse Ox O2 Delivery O2 Flow Rate FiO2 03/02/18 14:36 97.9 126 19 119/81 98 03/02/18 17:31 Room Air Sp02 EP Interpretation: reviewed, normal General Appearance: no apparent distress, alert, GCS 15, non-toxic, obese Head: normocephalic, atraumatic Eyes: bilateral eye normal inspection, bilateral eye PERRL ENT: hearing grossly normal, normal pharynx, no angioedema, normal voice Neck: full range of motion, supple/symm/no masses Respiratory: chest non-tender, lungs clear, normal breath sounds, speaking full sentences Cardiovascular #1: regular rate, rhythm, no edema Cardiovascular #2: 2+ carotid (R), 2+ carotid (L), 2+ radial (R), 2+ radial (L) , 2+ dorsalis pedis (R), 2+ dorsalis pedis (L) Gastrointestinal: normal bowel sounds, soft, non-distended, no guarding, no rebound, tenderness Rectal: deferred Genitourinary: normal inspection, no CVA tenderness Musculoskeletal: back normal, gait/station normal, normal range of motion, non- tender Neurologic: alert, oriented x3, responsive, motor strength/tone normal, sensory intact, speech normal Psychiatric: judgement/insight normal, memory normal, mood/affect normal, no suicidal/homicidal ideation Reflexes: 3+ bicep (R), 3+ bicep (L), 3+ tricep (R), 3+ tricep (L), 3+ knee (R) , 3+ knee (L) Skin: normal color, no rash, warm/dry, well hydrated Lymphatic: no adenopathy Medical Decision Making Diagnostic Impression: Primary Impression: Diverticulitis large intestine Qualified Codes: K57.20 - Diverticulitis of large intestine with perforation and abscess without bleeding ER Course Hospital Course 57-year-old female presents to ED with lower abdominal pain Differential diagnoses include: appendicitis, diverticulitis, SBO, gastroenteritis Clinical course 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 After initial history and physical I ordered labs, IV fluids, UA, pain medication and CT scan Labs - no leukocytosis, Hb/Hct stable. electrolytes ok. CT abdomen and pelvis - diverticulitis with surrounding micro perforation vs abscess CT appears unchanged from prior study on 02/19. Patient will require continued IV antibiotics and admission. She will be admitted to Dr. Arriaza I feel this is a highly complex case requiring extensive working including EKG/ Rhythm strip, Xray/CT/US, Blood/urine lab work, repeat exams while in ED, and administration of strong opiates/narcotics for pain control, admission to hospital or close patient follow up. Diagnosis - divertculitis large intestine Patient admitted to floor in serious condition Labs Test 03/02/18 15:28 03/02/18 15:34 White Blood Count 7.1 K/UL (4.8-10.8) Red Blood Count 5.20 M/UL (4.20-5.40) Hemoglobin 14.0 G/DL (12.0-16.0) Hematocrit 42.9 % (37.0-47.0) Mean Corpuscular Volume 83 FL (80-99) Mean Corpuscular Hemoglobin 27.0 PG (27.0-31.0) Mean Corpuscular Hemoglobin Concent 32.7 G/DL (32.0-36.0) Red Cell Distribution Width 11.3 % (11.6-14.8) Platelet Count 224 K/UL (150-450) Mean Platelet Volume 9.5 FL (6.5-10.1) Neutrophils (%) (Auto) 60.5 % (45.0-75.0) Lymphocytes (%) (Auto) 25.5 % (20.0-45.0) Monocytes (%) (Auto) 12.1 % (1.0-10.0) Eosinophils (%) (Auto) 0.5 % (0.0-3.0) Basophils (%) (Auto) 1.3 % (0.0-2.0) Sodium Level 137 MMOL/L (136-145) Potassium Level 3.6 MMOL/L (3.5-5.1) Chloride Level 102 MMOL/L (98-107) Carbon Dioxide Level 24 MMOL/L (21-32) Anion Gap 12 mmol/L (5-15) Blood Urea Nitrogen 9 mg/dL (7-18) Creatinine 0.9 MG/DL (0.55-1.30) Estimat Glomerular Filtration Rate > 60 mL/min (>60) Glucose Level 113 MG/DL (74-106) Calcium Level 9.4 MG/DL (8.5-10.1) Total Bilirubin 0.4 MG/DL (0.2-1.0) Aspartate Amino Transf (AST/SGOT) 22 U/L (15-37) Alanine Aminotransferase (ALT/SGPT) 21 U/L (12-78) Alkaline Phosphatase 62 U/L (46-116) Total Protein 8.7 G/DL (6.4-8.2) Albumin 3.4 G/DL (3.4-5.0) Globulin 5.3 g/dL Albumin/Globulin Ratio 0.6 (1.0-2.7) Lipase 56 U/L (73-393) Urine Color Brown Urine Appearance Slightly cloudy Urine pH 6 (4.5-8.0) Urine Specific [place] 1.020 (1.005-1.035) Urine Protein 2+ (NEGATIVE) Urine Glucose (UA) Negative (NEGATIVE) Urine Ketones 1+ (NEGATIVE) Urine Blood 2+ (NEGATIVE) Urine Nitrite Negative (NEGATIVE) Urine Bilirubin Negative (NEGATIVE) Urine Urobilinogen 1 MG/DL (0.0-1.0) Urine Leukocyte Esterase 3+ (NEGATIVE) Urine RBC 5-10 /HPF (0 - 2) Urine WBC 2-4 /HPF (0 - 2) Urine Squamous Epithelial Cells Moderate /LPF (NONE/OCC) Urine Bacteria Few /HPF (NONE) Urine HCG, Qualitative Negative (NEGATIVE) CT/MRI/US Diagnostic Results CT/MRI/US Diagnostic Results : Imaging Test Ordered: CT A/P Impression 1. Colonic diverticulosis with segmental wall thickening of the distal sigmoid colon concerning for acute diverticulitis. 2. 5.6 x 5.5 x 4.4 cm peripherally enhancing air-fluid collection adjacent to the inflamed distal sigmoid colon, anterior to uterus, and superior to the urinary bladder, concerning for a contained perforation versus abscess. This is not significantly changed in size compared to the prior exam. 3. Multilobulated fibroid uterus, with coarse calcifications. Last Vital Signs Date Time Temp Pulse Resp B/P (MAP) Pulse Ox O2 Delivery O2 Flow Rate FiO2 03/02/18 17:31 97.9 108 19 131/80 100 Room Air Status: improved Disposition: ADMITTED INPATIENT Condition: Serious Referrals: [facility],REFERRING (PCP) Gelacio Toro MD Mar 02, 2018 17:48
[2018-03-02 18:36] VITALS: BP 110/58
[2018-03-02] MEDS: D5 1/2NS 1,000 ML IV SCH (21:04)
[2018-03-02] MEDS: Morphine Sulfate 2mg/ml Inj IVP PRN (21:04)
[2018-03-03] VITALS: BP 117/78
[2018-03-03] MEDS: metroNIDAZOLE 500mg tab ORAL SCH ×3 (01:14→17:04)
[2018-03-03] MEDS: Morphine Sulfate 2mg/ml Inj IVP PRN ×5 (01:15→20:06)
[2018-03-03 04:00] VITALS: BP 111/56
[2018-03-03 07:44] LABS: BASOPHILS % (AUTO) 1.1 % (0.0-2.0); EOSINOPHILS % (AUTO) 1.1 % (0.0-3.0); HEMATOCRIT 38.8 % (37.0-47.0); HEMOGLOBIN 12.7 G/DL (12.0-16.0); LYMPHOCYTES % (AUTO) 38.9 % (20.0-45.0); MEAN CORPUSCULAR VOLUME 82 FL (80-99); MONOCYTES % (AUTO) 12.4 % (1.0-10.0); NEUTROPHILS % (AUTO) 46.6 % (45.0-75.0); PLATELET COUNT 177 K/UL (150-450); RED BLOOD COUNT 4.71 M/UL (4.20-5.40); RED CELL DISTRIBUTION WIDTH 11.3 % (11.6-14.8); WHITE BLOOD COUNT 7.1 K/UL (4.8-10.8)
[2018-03-03 08:00] VITALS: BP 120/70
[2018-03-03 08:02] LABS: ANION GAP 9 mmol/L (5-15); BLOOD UREA NITROGEN 8 mg/dL (7-18); CALCIUM 8.5 MG/DL (8.5-10.1); CARBON DIOXIDE 23 MMOL/L (21-32); CHLORIDE 104 MMOL/L (98-107); CREATININE 0.8 MG/DL (0.55-1.30); POTASSIUM 3.5 MMOL/L (3.5-5.1); SODIUM 136 MMOL/L (136-145)
--- NOTE | 2018-03-03 08:30 | General Progress Note ---
Assessment/Plan Problem List: (1) Diverticulitis large intestine ICD Codes: K57.32 - Diverticulitis of large intestine without perforation or abscess without bleeding SNOMED: [id number] Qualifiers: Qualified Codes: K57.20 - Diverticulitis of large intestine with perforation and abscess without bleeding Assessment/Plan pending CT guided abscess drainage iv abx fu labs colace fu surg recs pain control Subjective ROS Limited/Unobtainable: Yes Allergies: Coded Allergies: No Known Allergies (Unverified , 03/17/16) Objective Last 24 Hour Vital Signs Date Time Temp Pulse Resp B/P (MAP) Pulse Ox O2 Delivery O2 Flow Rate FiO2 03/03/18 08:00 97.8 20 20 120/70 (87) 95 03/03/18 04:00 98.7 94 18 111/56 (74) 97 03/03/18 00:00 98.7 94 19 117/78 (91) 98 03/02/18 19:02 Room Air 03/02/18 18:50 98.0 100 18 110/58 95 Room Air 03/02/18 18:36 98.0 100 18 110/58 95 Room Air 03/02/18 17:31 97.9 108 19 131/80 100 Room Air 03/02/18 16:11 97.9 100 22 145/78 96 03/02/18 16:04 97.9 03/02/18 14:36 97.9 126 19 119/81 98 Intake and Output 03/02/18 03/03/18 18:59 06:59 Intake Total 540 ml Balance 540 ml Intake IV Total 540 ml # Voids 1 3 Laboratory Tests 03/02/18 15:28: White Blood Count 7.1, Red Blood Count 5.20, Hemoglobin 14.0, Hematocrit 42.9, Mean Corpuscular Volume 83, Mean Corpuscular Hemoglobin 27.0, Mean Corpuscular Hemoglobin Concent 32.7, Red Cell Distribution Width 11.3L, Platelet Count 224, Mean Platelet Volume 9.5, Neutrophils (%) (Auto) 60.5, Lymphocytes (%) (Auto) 25.5, Monocytes (%) (Auto) 12.1H, Eosinophils (%) (Auto) 0.5, Basophils (%) ( Auto) 1.3, Sodium Level 137, Potassium Level 3.6, Chloride Level 102, Carbon Dioxide Level 24, Anion Gap 12, Blood Urea Nitrogen 9, Creatinine 0.9, Estimat Glomerular Filtration Rate > 60, Glucose Level 113H, Calcium Level 9.4, Total Bilirubin 0.4, Aspartate Amino Transf (AST/SGOT) 22, Alanine Aminotransferase ( ALT/SGPT) 21, Alkaline Phosphatase 62, Total Protein 8.7H, Albumin 3.4, Globulin 5.3, Albumin/Globulin Ratio 0.6L, Lipase 56L 03/02/18 15:34: Urine Color Brown, Urine Appearance Slightly cloudy, Urine pH 6, Urine Specific Lloyd 1.020, Urine Protein 2+H, Urine Glucose (UA) Negative, Urine Ketones 1+H , Urine Blood 2+H, Urine Nitrite Negative, Urine Bilirubin Negative, Urine Urobilinogen 1H, Urine Leukocyte Esterase 3+H, Urine RBC 5-10H, Urine WBC 2-4, Urine Squamous Epithelial Cells ModerateH, Urine Bacteria Few, Urine HCG, Qualitative Negative 03/03/18 06:45: White Blood Count 7.1, Red Blood Count 4.71, Hemoglobin 12.7, Hematocrit 38.8, Mean Corpuscular Volume 82, Mean Corpuscular Hemoglobin 26.9L, Mean Corpuscular Hemoglobin Concent 32.6, Red Cell Distribution Width 11.3L, Platelet Count 177, Mean Platelet Volume 8.7, Neutrophils (%) (Auto) 46.6, Lymphocytes (%) (Auto) 38.9, Monocytes (%) (Auto) 12.4H, Eosinophils (%) (Auto) 1.1, Basophils (%) ( Auto) 1.1, Sodium Level 136, Potassium Level 3.5, Chloride Level 104, Carbon Dioxide Level 23, Anion Gap 9, Blood Urea Nitrogen 8, Creatinine 0.8, Estimat Glomerular Filtration Rate > 60, Glucose Level 102, Calcium Level 8.5 Height (Feet): 5 Height (Inches): 7.00 Weight (Pounds): 244 General Appearance: alert EENT: normal ENT inspection Neck: supple Cardiovascular: normal rate Respiratory/Chest: lungs clear Abdomen: soft, decreased bowel sounds, tender Extremities: non-tender Brandt Sylvester MD Mar 03, 2018 08:30
[2018-03-03] MEDS: Docusate 100mg cap ORAL SCH ×2 (08:47→17:21)
--- NOTE | 2018-03-03 10:00 | History and Physical Report ---
DATE OF ADMISSION: 03/02/2018 TIME SEEN: 8 a.m. CONSULTANTS: 1. Ry Montague M.D. 2. Brandt Sylvester M.D. 3. William Mcpherson M.D. CHIEF COMPLAINT: Abdominal pain, vomiting, diarrhea, diverticulitis history, and pelvic abscess. BRIEF HISTORY: The patient is a 57-year-old female, who lives at home, presents to [facility] last night with above-mentioned diagnosis, admitted to medical floor for further treatment. Currently, pain in the abdomen. No complaint. REVIEW OF SYSTEMS: No chest pain. No shortness of breath. Slight nausea, vomiting. Slight diarrhea. PAST MEDICAL HISTORY: As mentioned, diverticulitis and pelvic abscess. PAST SURGICAL HISTORY: None. ALLERGIES: Denies. MEDICATIONS: Include metronidazole, hydrocodone, Tylenol, Zofran, and morphine. SOCIAL HISTORY: No smoking. No alcohol. No intravenous drug abuse. FAMILY HISTORY: Noncontributory. PHYSICAL EXAMINATION: GENERAL: Calm in bed, oriented x3, no acute distress. VITAL SIGNS: Temperature is 98, pulse 94, respirations 18, and blood pressure 111/56. CARDIOVASCULAR: No murmur. LUNGS: Distant and clear. ABDOMEN: Bowel sounds positive. Slightly tender. No guarding. No rigidity. No rebound. Soft. EXTREMITIES: No cyanosis or edema. NEUROLOGIC: The patient moves all extremities, slightly weak. LABORATORY AND DIAGNOSTIC DATA: Labs at this time show CBC is normal. BMP is normal. Urinalysis, 3+ leukocyte esterase. ASSESSMENT: 1. UTI. 2. Diverticulitis. 3. Pelvic abscess. 4. Abdominal pain and vomiting. PLAN: NPO, IV fluids. Pain control. Zofran p.r.n. CBC and BMP in the morning. Dietary evaluation. Resume home medications. Dr. Montague, Dr. Sylvester, and Dr. Mcpherson to consult. Irineo Arriaza D.O. DR: IDMITRY JOB#: [id number] CC:
[2018-03-03 11:59] VITALS: BP 114/74
[2018-03-03] MEDS: D5 1/2NS 1,000 ML IV SCH (13:20)
--- NOTE | 2018-03-03 13:40 | Consultation ---
History of Present Illness General Date patient seen: Mar 03, 2018 Chief Complaint: Pelvic Pain Present Illness HPI 57 year old female with multiple medical comorbidities well known to me from prior admission. Patient had episode of sigmoid diverticulitis with microperf treated with medical management. Did well and discharged home in stable condition. Returned with pain and CT demonstrated new forming abscess but was transferred to [facility] for insurance reasons. spoke with surgeon / medical team at [facility] and was recommended to have IR drain but refused and was discharged. since states has been at home in pain and came to [facility] because pain worsening again. CT demonstrates large abscess still. surgery called to evaluate. spoke with patient and states she was too scared to have drain. is now willing given pain worsening. Allergies: Coded Allergies: No Known Allergies (Unverified , 03/17/16) Medication History Scheduled Bimatoprost (Lumigan), 1 DROP BOTH EYES QHS, (Reported) Ciprofloxacin* (Cipro*), 500 MG PO BID Metronidazole* (Flagyl*), 500 MG ORAL THREE TIMES A DAY, (Reported) Scheduled PRN Hydrocodone Bit/Acetaminophen 10-325* ([place] 10-325*), 1 TAB ORAL Q6H PRN for For Pain, (Reported) Patient History History Provided By: Patient, Medical Record, PMD Healthcare decision maker Resuscitation status Advanced Directive on File No Past Medical/Surgical History Past Medical/Surgical History: (1) Intra-abdominal abscess (2) Abscess of sigmoid colon due to diverticulitis (3) Muscle strain (4) Back pain (5) Peripheral edema (6) Diverticulitis large intestine Review of Systems All Other Systems: negative except mentioned in HPI Physical Exam General Appearance: no apparent distress, alert Lines, tubes and drains: peripheral HEENT: mucous membranes moist Neck: normal inspection Respiratory/Chest: no respiratory distress Cardiovascular/Chest: regular rhythm Abdomen: soft, no organomegaly, no mass, tender Extremities: normal inspection Skin Exam: warm/dry Neurologic: alert, oriented x 3 Last 24 Hour Vital Signs Date Time Temp Pulse Resp B/P (MAP) Pulse Ox O2 Delivery O2 Flow Rate FiO2 03/03/18 11:59 98.3 98 20 114/74 (87) 98 03/03/18 11:30 98.3 03/03/18 09:14 Room Air 03/03/18 08:00 97.8 20 20 120/70 (87) 95 03/03/18 04:00 98.7 94 18 111/56 (74) 97 03/03/18 00:00 98.7 94 19 117/78 (91) 98 03/02/18 19:02 Room Air 03/02/18 18:50 98.0 100 18 110/58 95 Room Air 03/02/18 18:36 98.0 100 18 110/58 95 Room Air 03/02/18 17:31 97.9 108 19 131/80 100 Room Air 03/02/18 16:11 97.9 100 22 145/78 96 03/02/18 16:04 97.9 03/02/18 14:36 97.9 126 19 119/81 98 Intake and Output 03/02/18 03/03/18 19:00 07:00 Intake Total 600 ml Balance 600 ml Intake IV Total 600 ml # Voids 1 3 Laboratory Tests Test 03/02/18 15:28 03/02/18 15:34 03/03/18 06:45 White Blood Count 7.1 K/UL (4.8-10.8) 7.1 K/UL (4.8-10.8) Red Blood Count 5.20 M/UL (4.20-5.40) 4.71 M/UL (4.20-5.40) Hemoglobin 14.0 G/DL (12.0-16.0) 12.7 G/DL (12.0-16.0) Hematocrit 42.9 % (37.0-47.0) 38.8 % (37.0-47.0) Mean Corpuscular Volume 83 FL (80-99) 82 FL (80-99) Mean Corpuscular Hemoglobin 27.0 PG (27.0-31.0) 26.9 PG (27.0-31.0) L Mean Corpuscular Hemoglobin Concent 32.7 G/DL (32.0-36.0) 32.6 G/DL (32.0-36.0) Red Cell Distribution Width 11.3 % (11.6-14.8) L 11.3 % (11.6-14.8) L Platelet Count 224 K/UL (150-450) 177 K/UL (150-450) Mean Platelet Volume 9.5 FL (6.5-10.1) 8.7 FL (6.5-10.1) Neutrophils (%) (Auto) 60.5 % (45.0-75.0) 46.6 % (45.0-75.0) Lymphocytes (%) (Auto) 25.5 % (20.0-45.0) 38.9 % (20.0-45.0) Monocytes (%) (Auto) 12.1 % (1.0-10.0) H 12.4 % (1.0-10.0) H Eosinophils (%) (Auto) 0.5 % (0.0-3.0) 1.1 % (0.0-3.0) Basophils (%) (Auto) 1.3 % (0.0-2.0) 1.1 % (0.0-2.0) Sodium Level 137 MMOL/L (136-145) 136 MMOL/L (136-145) Potassium Level 3.6 MMOL/L (3.5-5.1) 3.5 MMOL/L (3.5-5.1) Chloride Level 102 MMOL/L (98-107) 104 MMOL/L (98-107) Carbon Dioxide Level 24 MMOL/L (21-32) 23 MMOL/L (21-32) Anion Gap 12 mmol/L (5-15) 9 mmol/L (5-15) Blood Urea Nitrogen 9 mg/dL (7-18) 8 mg/dL (7-18) Creatinine 0.9 MG/DL (0.55-1.30) 0.8 MG/DL (0.55-1.30) Estimat Glomerular Filtration Rate > 60 mL/min (>60) > 60 mL/min (>60) Glucose Level 113 MG/DL (74-106) H 102 MG/DL (74-106) Calcium Level 9.4 MG/DL (8.5-10.1) 8.5 MG/DL (8.5-10.1) Total Bilirubin 0.4 MG/DL (0.2-1.0) Aspartate Amino Transf (AST/SGOT) 22 U/L (15-37) Alanine Aminotransferase (ALT/SGPT) 21 U/L (12-78) Alkaline Phosphatase 62 U/L (46-116) Total Protein 8.7 G/DL (6.4-8.2) H Albumin 3.4 G/DL (3.4-5.0) Globulin 5.3 g/dL Albumin/Globulin Ratio 0.6 (1.0-2.7) L Lipase 56 U/L (73-393) L Urine Color Brown Urine Appearance Slightly cloudy Urine pH 6 (4.5-8.0) Urine Specific [place] 1.020 (1.005-1.035) Urine Protein 2+ (NEGATIVE) H Urine Glucose (UA) Negative (NEGATIVE) Urine Ketones 1+ (NEGATIVE) H Urine Blood 2+ (NEGATIVE) H Urine Nitrite Negative (NEGATIVE) Urine Bilirubin Negative (NEGATIVE) Urine Urobilinogen 1 MG/DL (0.0-1.0) H Urine Leukocyte Esterase 3+ (NEGATIVE) H Urine RBC 5-10 /HPF (0 - 2) H Urine WBC 2-4 /HPF (0 - 2) Urine Squamous Epithelial Cells Moderate /LPF (NONE/OCC) H Urine Bacteria Few /HPF (NONE) Urine HCG, Qualitative Negative (NEGATIVE) Height (Feet): 5 Height (Inches): 7.00 Weight (Pounds): 244 Medications Current Medications Medications (Trade) Dose Ordered Sig/Calos Route PRN Reason Start Time Stop Time Status Last Admin Dose Admin Acetaminophen (Tylenol) 650 mg Q6H PRN ORAL Mild Pain/Temp > 100.5 03/03/18 00:15 04/02/18 00:14 03/03/18 00:20 Acetaminophen/ Hydrocodone Bitart ([place] 10/325) 1 tab Q6H PRN ORAL for moderate pain (4-6) 03/03/18 00:45 03/10/18 00:44 Dextrose/Sodium Chloride 1,000 ml @ 60 mls/hr [id number] IV 03/02/18 20:45 04/01/18 20:44 03/03/18 13:20 Docusate Sodium (Colace) 100 mg TWICE A DAY ORAL 03/03/18 09:00 04/02/18 08:59 03/03/18 08:47 Iopamidol (Isovue-300 100ml) 100 ml NOW PRN INJ Radiology Procedure 03/02/18 15:15 Metronidazole (Flagyl) 500 mg Q8H ORAL 03/03/18 01:00 03/10/18 00:59 03/03/18 08:25 Morphine Sulfate (Morphine Sulfate) 2 mg Q4H PRN IVP for severe pain (7-10) 03/03/18 08:45 03/09/18 20:44 03/03/18 11:00 Ondansetron HCl (Zofran) 4 mg Q6H PRN IVP Nausea & Vomiting 03/02/18 21:00 04/01/18 20:59 Piperacillin Sod/ Tazobactam Sod 3.375 gm/Dextrose 110 ml @ 27.5 mls/hr EVERY 8 HOURS IVPB 03/03/18 14:00 03/08/18 13:59 UNV Assessment/Plan Problem List: (1) Intra-abdominal abscess Assessment & Plan: abscess from perforated sigmoid diverticulitis. as been ongoing for some time now and patient refused prior therapy. currently agreeable will order IR drainage npo iv fluids iv abx if worsening will need surgery thank you ICD Codes: K65.1 - Peritoneal abscess SNOMED: 11632305 (2) Diverticulitis large intestine ICD Codes: K57.32 - Diverticulitis of large intestine without perforation or abscess without bleeding SNOMED: 9135422 Qualifiers: Qualified Codes: K57.20 - Diverticulitis of large intestine with perforation and abscess without bleeding William Mcpherson Mar 03, 2018 13:40
[2018-03-03] MEDS: Piperacillin/Tazobactam 3.375 GM in D5W 110 ML IVPB SCH (15:29)
[2018-03-03 16:00] VITALS: BP_SYST 133; BP_SYST 161; BP_DIAS 67; BP_DIAS 72
[2018-03-03 20:00] VITALS: BP 97/47
[2018-03-04] VITALS (16 sets, daily range): BP systolic 119–149; BP diastolic 65–95
[2018-03-04] MEDS: Piperacillin/Tazobactam 3.375 GM in D5W 110 ML IVPB SCH ×3 (00:02→18:39)
[2018-03-04] MEDS: Morphine Sulfate 2mg/ml Inj IVP PRN ×4 (00:02→20:02)
[2018-03-04] MEDS: metroNIDAZOLE 500mg tab ORAL SCH ×2 (00:04→08:58)
[2018-03-04] MEDS: D5 1/2NS 1,000 ML IV SCH ×2 (06:05→22:51)
[2018-03-04 07:25] LABS: BASOPHILS % (AUTO) 1.3 % (0.0-2.0); EOSINOPHILS % (AUTO) 0.9 % (0.0-3.0); HEMOGLOBIN 12.1 G/DL (12.0-16.0); LYMPHOCYTES % (AUTO) 28.3 % (20.0-45.0); MEAN CORPUSCULAR VOLUME 82 FL (80-99); MONOCYTES % (AUTO) 11.8 % (1.0-10.0); NEUTROPHILS % (AUTO) 57.7 % (45.0-75.0); PLATELET COUNT 193 K/UL (150-450); RED CELL DISTRIBUTION WIDTH 11.3 % (11.6-14.8); WHITE BLOOD COUNT 7.4 K/UL (4.8-10.8)
[2018-03-04 07:31] LABS: ANION GAP 9 mmol/L (5-15); BLOOD UREA NITROGEN 5 mg/dL (7-18); CALCIUM 8.7 MG/DL (8.5-10.1); CARBON DIOXIDE 26 MMOL/L (21-32); CHLORIDE 103 MMOL/L (98-107); CREATININE 0.9 MG/DL (0.55-1.30); POTASSIUM 3.3 MMOL/L (3.5-5.1); SODIUM 138 MMOL/L (136-145)
--- NOTE | 2018-03-04 08:25 | General Progress Note ---
Assessment/Plan Problem List: (1) Diverticulitis large intestine ICD Codes: K57.32 - Diverticulitis of large intestine without perforation or abscess without bleeding SNOMED: 1917064 Qualifiers: Qualified Codes: K57.20 - Diverticulitis of large intestine with perforation and abscess without bleeding (2) Muscle strain ICD Codes: T14.8 - Other injury of unspecified body region SNOMED: 82662097 (3) Intra-abdominal abscess ICD Codes: K65.1 - Peritoneal abscess SNOMED: 65892941 Status: unchanged Assessment/Plan pain control abx cbc bmp am sx f/u Subjective Constitutional: Reports: weakness Allergies: Coded Allergies: No Known Allergies (Unverified , 03/17/16) All Systems: reviewed and negative except above Subjective sl abd pain Objective Last 24 Hour Vital Signs Date Time Temp Pulse Resp B/P (MAP) Pulse Ox O2 Delivery O2 Flow Rate FiO2 03/04/18 08:12 Room Air 03/04/18 08:00 99.7 105 20 124/65 (84) 95 03/04/18 04:00 100.0 106 18 119/81 (94) 99 03/03/18 21:00 Room Air 03/03/18 20:00 99.7 85 17 97/47 (64) 99 03/03/18 16:00 98.5 98 20 133/67 (89) 99 03/03/18 15:58 98.5 03/03/18 11:59 98.3 98 20 114/74 (87) 98 03/03/18 09:14 Room Air Intake and Output 03/03/18 03/04/18 19:00 07:00 Intake Total 540 ml 720 ml Balance 540 ml 720 ml Intake IV Total 540 ml 720 ml Laboratory Tests 03/04/18 05:50: White Blood Count 7.4, Red Blood Count 4.50, Hemoglobin 12.1, Hematocrit 37.0, Mean Corpuscular Volume 82, Mean Corpuscular Hemoglobin 26.9L, Mean Corpuscular Hemoglobin Concent 32.7, Red Cell Distribution Width 11.3L, Platelet Count 193, Mean Platelet Volume 9.1, Neutrophils (%) (Auto) 57.7, Lymphocytes (%) (Auto) 28.3, Monocytes (%) (Auto) 11.8H, Eosinophils (%) (Auto) 0.9, Basophils (%) ( Auto) 1.3, Sodium Level 138, Potassium Level 3.3L, Chloride Level 103, Carbon Dioxide Level 26, Anion Gap 9, Blood Urea Nitrogen 5L, Creatinine 0.9, Estimat Glomerular Filtration Rate > 60, Glucose Level 106, Calcium Level 8.7 Height (Feet): 5 Height (Inches): 7.00 Weight (Pounds): 244 General Appearance: lethargic EENT: normal ENT inspection Neck: normal alignment Cardiovascular: normal peripheral pulses, normal rate, regular rhythm Respiratory/Chest: chest wall non-tender, lungs clear, normal breath sounds Abdomen: normal bowel sounds, non tender, soft Extremities: normal inspection Edema: no edema noted Arm (L), no edema noted Arm (R), no edema noted Leg (L), no edema noted Leg (R), no edema noted Pedal (L), no edema noted Pedal (R), no edema noted Generalized Neurologic: responsive, motor weakness Skin: normal pigmentation, warm/dry Irineo Arriaza DO Mar 04, 2018 08:25
[2018-03-04] MEDS: Docusate 100mg cap ORAL SCH ×2 (08:58→17:35)
[2018-03-04 09:12] LABS: ALANINE AMINOTRANSFERASE 14 U/L (12-78); ALBUMIN 2.8 G/DL (3.4-5.0); ALKALINE PHOSPHATASE 57 U/L (46-116); ASPARTATE AMINO TRANSFERASE 21 U/L (15-37); BILIRUBIN,DIRECT 0.1 MG/DL (0.0-0.3); BILIRUBIN,TOTAL 0.4 MG/DL (0.2-1.0); PHOSPHORUS 3.8 MG/DL (2.5-4.9)
--- NOTE | 2018-03-04 10:17 | General Progress Note ---
Assessment/Plan Problem List: (1) Diverticulitis large intestine ICD Codes: K57.32 - Diverticulitis of large intestine without perforation or abscess without bleeding SNOMED: 9105160 Qualifiers: Qualified Codes: K57.20 - Diverticulitis of large intestine with perforation and abscess without bleeding Assessment/Plan pending CT guided abscess drainage iv abx fu labs colace fu surg recs pain control Subjective ROS Limited/Unobtainable: Yes Allergies: Coded Allergies: No Known Allergies (Unverified , 03/17/16) Objective Last 24 Hour Vital Signs Date Time Temp Pulse Resp B/P (MAP) Pulse Ox O2 Delivery O2 Flow Rate FiO2 03/04/18 08:12 Room Air 03/04/18 08:11 99.7 03/04/18 08:00 99.7 105 20 124/65 (84) 95 03/04/18 04:00 100.0 106 18 119/81 (94) 99 03/03/18 21:00 Room Air 03/03/18 20:00 99.7 85 17 97/47 (64) 99 03/03/18 16:00 98.5 98 20 133/67 (89) 99 03/03/18 11:59 98.3 98 20 114/74 (87) 98 Intake and Output 03/03/18 03/04/18 19:00 07:00 Intake Total 540 ml 720 ml Balance 540 ml 720 ml Intake IV Total 540 ml 720 ml Laboratory Tests 03/04/18 05:50: White Blood Count 7.4, Red Blood Count 4.50, Hemoglobin 12.1, Hematocrit 37.0, Mean Corpuscular Volume 82, Mean Corpuscular Hemoglobin 26.9L, Mean Corpuscular Hemoglobin Concent 32.7, Red Cell Distribution Width 11.3L, Platelet Count 193, Mean Platelet Volume 9.1, Neutrophils (%) (Auto) 57.7, Lymphocytes (%) (Auto) 28.3, Monocytes (%) (Auto) 11.8H, Eosinophils (%) (Auto) 0.9, Basophils (%) ( Auto) 1.3, Sodium Level 138, Potassium Level 3.3L, Chloride Level 103, Carbon Dioxide Level 26, Anion Gap 9, Blood Urea Nitrogen 5L, Creatinine 0.9, Estimat Glomerular Filtration Rate > 60, Glucose Level 106, Calcium Level 8.7, Phosphorus Level 3.8, Magnesium Level 1.5L, Total Bilirubin 0.4, Direct Bilirubin 0.1, Aspartate Amino Transf (AST/SGOT) 21, Alanine Aminotransferase ( ALT/SGPT) 14, Alkaline Phosphatase 57, Total Protein 7.5, Albumin 2.8L Height (Feet): 5 Height (Inches): 7.00 Weight (Pounds): 244 General Appearance: alert EENT: normal ENT inspection Neck: supple Cardiovascular: normal rate Respiratory/Chest: decreased breath sounds Abdomen: normal bowel sounds, non tender, soft Extremities: non-tender Brandt Sylvester MD Mar 04, 2018 10:17
--- NOTE | 2018-03-04 11:16 | Consultation ---
History of Present Illness General Date patient seen: Mar 04, 2018 Chief Complaint: Pelvic Pain Present Illness HPI 57 y/o F with hx of HTN, asthma, recent sigmoid diverticulitis with microperforation (treated with medical management with improvement) presented to ED on 03/02 with abd pain 10/10 (lower, sharp, nonradiating),nausea and vomiting. OF note patient recently seen in [facility] due to returned pain and showed abscess and it was recommended IR drain but patient refused and was discharged. She has ongoing abd pain and decided to go [place] [facility] now shows large abscess. Denies f/c Allergies: Coded Allergies: No Known Allergies (Unverified , 03/17/16) Medication History Scheduled Bimatoprost (Lumigan), 1 DROP BOTH EYES QHS, (Reported) Ciprofloxacin* (Cipro*), 500 MG PO BID Metronidazole* (Flagyl*), 500 MG ORAL THREE TIMES A DAY, (Reported) Scheduled PRN Hydrocodone Bit/Acetaminophen 10-325* ([place] 10-325*), 1 TAB ORAL Q6H PRN for For Pain, (Reported) Patient History Healthcare decision maker Resuscitation status Advanced Directive on File No Patient History Narrative PMhx: as above Shx:Denies: smoking, alcohol use, drug use Fhx: non contributory Review of Systems All Other Systems: negative except mentioned in HPI Physical Exam Physical Exam Narrative GENERAL: Calm in bed, oriented x3, no acute distress. CARDIOVASCULAR: No murmur. LUNGS: Distant and clear. ABDOMEN: Bowel sounds positive. Slightly tender. No guarding. No rigidity. No rebound. Soft. EXTREMITIES: No cyanosis or edema. NEUROLOGIC: The patient moves all extremities, slightly weak. Last 24 Hour Vital Signs Date Time Temp Pulse Resp B/P (MAP) Pulse Ox O2 Delivery O2 Flow Rate FiO2 03/04/18 08:12 Room Air 03/04/18 08:11 99.7 03/04/18 08:00 99.7 105 20 124/65 (84) 95 03/04/18 04:00 100.0 106 18 119/81 (94) 99 03/03/18 21:00 Room Air 03/03/18 20:00 99.7 85 17 97/47 (64) 99 03/03/18 16:00 98.5 98 20 133/67 (89) 99 03/03/18 11:59 98.3 98 20 114/74 (87) 98 Intake and Output 03/03/18 03/04/18 18:59 06:59 Intake Total 540 ml 720 ml Balance 540 ml 720 ml Intake IV Total 540 ml 720 ml Laboratory Tests Test 03/04/18 05:50 03/04/18 10:10 White Blood Count 7.4 K/UL (4.8-10.8) Red Blood Count 4.50 M/UL (4.20-5.40) Hemoglobin 12.1 G/DL (12.0-16.0) Hematocrit 37.0 % (37.0-47.0) Mean Corpuscular Volume 82 FL (80-99) Mean Corpuscular Hemoglobin 26.9 PG (27.0-31.0) L Mean Corpuscular Hemoglobin Concent 32.7 G/DL (32.0-36.0) Red Cell Distribution Width 11.3 % (11.6-14.8) L Platelet Count 193 K/UL (150-450) Mean Platelet Volume 9.1 FL (6.5-10.1) Neutrophils (%) (Auto) 57.7 % (45.0-75.0) Lymphocytes (%) (Auto) 28.3 % (20.0-45.0) Monocytes (%) (Auto) 11.8 % (1.0-10.0) H Eosinophils (%) (Auto) 0.9 % (0.0-3.0) Basophils (%) (Auto) 1.3 % (0.0-2.0) Sodium Level 138 MMOL/L (136-145) Potassium Level 3.3 MMOL/L (3.5-5.1) L Chloride Level 103 MMOL/L (98-107) Carbon Dioxide Level 26 MMOL/L (21-32) Anion Gap 9 mmol/L (5-15) Blood Urea Nitrogen 5 mg/dL (7-18) L Creatinine 0.9 MG/DL (0.55-1.30) Estimat Glomerular Filtration Rate > 60 mL/min (>60) Glucose Level 106 MG/DL (74-106) Calcium Level 8.7 MG/DL (8.5-10.1) Phosphorus Level 3.8 MG/DL (2.5-4.9) Magnesium Level 1.5 MG/DL (1.8-2.4) L Total Bilirubin 0.4 MG/DL (0.2-1.0) Direct Bilirubin 0.1 MG/DL (0.0-0.3) Aspartate Amino Transf (AST/SGOT) 21 U/L (15-37) Alanine Aminotransferase (ALT/SGPT) 14 U/L (12-78) Alkaline Phosphatase 57 U/L (46-116) Total Protein 7.5 G/DL (6.4-8.2) Albumin 2.8 G/DL (3.4-5.0) L Prothrombin Time Pending Prothromb Time International Ratio Pending Activated Partial Thromboplast Time Pending Height (Feet): 5 Height (Inches): 7.00 Weight (Pounds): 244 Medications Current Medications Medications (Trade) Dose Ordered Sig/Calos Route PRN Reason Start Time Stop Time Status Last Admin Dose Admin Acetaminophen (Tylenol) 650 mg Q6H PRN ORAL Mild Pain/Temp > 100.5 03/03/18 00:15 04/02/18 00:14 03/03/18 00:20 Acetaminophen/ Hydrocodone Bitart ([place] 10/325) 1 tab Q6H PRN ORAL for moderate pain (4-6) 03/03/18 00:45 03/10/18 00:44 Dextrose/Sodium Chloride 1,000 ml @ 60 mls/hr [id number] IV 03/02/18 20:45 04/01/18 20:44 03/03/18 13:20 Docusate Sodium (Colace) 100 mg TWICE A DAY ORAL 03/03/18 09:00 04/02/18 08:59 03/04/18 08:58 Iopamidol (Isovue-300 100ml) 100 ml NOW PRN INJ Radiology Procedure 03/02/18 15:15 Metronidazole (Flagyl) 500 mg Q8H ORAL 03/03/18 01:00 03/10/18 00:59 03/04/18 08:58 Morphine Sulfate (Morphine Sulfate) 2 mg Q4H PRN IVP for severe pain (7-10) 03/03/18 08:45 03/09/18 20:44 03/04/18 07:41 Ondansetron HCl (Zofran) 4 mg Q6H PRN IVP Nausea & Vomiting 03/02/18 21:00 04/01/18 20:59 03/04/18 09:17 Piperacillin Sod/ Tazobactam Sod 3.375 gm/Dextrose 110 ml @ 27.5 mls/hr Q8H IVPB 03/03/18 16:00 03/10/18 15:59 03/04/18 07:41 Potassium Chloride 100 ml @ 100 mls/hr Q1H IV 03/04/18 09:30 03/04/18 13:29 03/04/18 09:00 Assessment/Plan Assessment/Plan Abx: ZOsyn 03/02- Flagyl 03/02- Assessment: Subacute sigmoid diverticulitis w/ microperforation c/w intraabdominal abscess -CT abd/p: 1. Colonic diverticulosis with segmental wall thickening of the distal sigmoid colon concerning for acute diverticulitis.5.6 x 5.5 x 4.4 cm peripherally enhancing air-fluid collection adjacent to the inflamed distal sigmoid colon, anterior to uterus, and superior to the urinary bladder, concerning for a contained perforation versus abscess. This is not significantly changed in size compared to the prior exam. Multilobulated fibroid uterus, with coarse calcifications. Low grade fever No leuocytosis HTN asthma Plan: -Continue ZOsyn #3 for diverticulitis and abscess -Dc Flagyl #3 -IR vs surgical management -send cultures -f/u cx -Monitor CBC/CMP, temperatures -Aspiration precautions -Sx f/u Thank you for this consultation. Will continue to follow along with you. Discussed with Marlen Velez M.D. Mar 04, 2018 11:16
--- NOTE | 2018-03-04 11:23 | General Surgery Progress Note ---
General Surgery-Progress Note Subjective Additional Comments doing okay. still with abd pain. nervous about drainage Objective Last 24 Hour Vital Signs Date Time Temp Pulse Resp B/P (MAP) Pulse Ox O2 Delivery O2 Flow Rate FiO2 03/04/18 08:12 Room Air 03/04/18 08:11 99.7 03/04/18 08:00 99.7 105 20 124/65 (84) 95 03/04/18 04:00 100.0 106 18 119/81 (94) 99 03/03/18 21:00 Room Air 03/03/18 20:00 99.7 85 17 97/47 (64) 99 03/03/18 16:00 98.5 98 20 133/67 (89) 99 03/03/18 11:59 98.3 98 20 114/74 (87) 98 I&O Intake and Output 03/03/18 03/04/18 18:59 06:59 Intake Total 540 ml 720 ml Balance 540 ml 720 ml Intake IV Total 540 ml 720 ml Drains: none Cardiovascular: RSR Respiratory: clear Abdomen: soft, distended, tenderness, present bowel sounds Extremities: no cyanosis Laboratory Tests Test 03/04/18 05:50 03/04/18 10:10 White Blood Count 7.4 K/UL (4.8-10.8) Red Blood Count 4.50 M/UL (4.20-5.40) Hemoglobin 12.1 G/DL (12.0-16.0) Hematocrit 37.0 % (37.0-47.0) Mean Corpuscular Volume 82 FL (80-99) Mean Corpuscular Hemoglobin 26.9 PG (27.0-31.0) L Mean Corpuscular Hemoglobin Concent 32.7 G/DL (32.0-36.0) Red Cell Distribution Width 11.3 % (11.6-14.8) L Platelet Count 193 K/UL (150-450) Mean Platelet Volume 9.1 FL (6.5-10.1) Neutrophils (%) (Auto) 57.7 % (45.0-75.0) Lymphocytes (%) (Auto) 28.3 % (20.0-45.0) Monocytes (%) (Auto) 11.8 % (1.0-10.0) H Eosinophils (%) (Auto) 0.9 % (0.0-3.0) Basophils (%) (Auto) 1.3 % (0.0-2.0) Sodium Level 138 MMOL/L (136-145) Potassium Level 3.3 MMOL/L (3.5-5.1) L Chloride Level 103 MMOL/L (98-107) Carbon Dioxide Level 26 MMOL/L (21-32) Anion Gap 9 mmol/L (5-15) Blood Urea Nitrogen 5 mg/dL (7-18) L Creatinine 0.9 MG/DL (0.55-1.30) Estimat Glomerular Filtration Rate > 60 mL/min (>60) Glucose Level 106 MG/DL (74-106) Calcium Level 8.7 MG/DL (8.5-10.1) Phosphorus Level 3.8 MG/DL (2.5-4.9) Magnesium Level 1.5 MG/DL (1.8-2.4) L Total Bilirubin 0.4 MG/DL (0.2-1.0) Direct Bilirubin 0.1 MG/DL (0.0-0.3) Aspartate Amino Transf (AST/SGOT) 21 U/L (15-37) Alanine Aminotransferase (ALT/SGPT) 14 U/L (12-78) Alkaline Phosphatase 57 U/L (46-116) Total Protein 7.5 G/DL (6.4-8.2) Albumin 2.8 G/DL (3.4-5.0) L Prothrombin Time 10.9 SEC (9.30-11.50) Prothromb Time International Ratio 1.0 (0.9-1.1) Activated Partial Thromboplast Time 28 SEC (23-33) Plan Problems: (1) Intra-abdominal abscess Assessment & Plan: abscess from perforated sigmoid diverticulitis. as been ongoing for some time now and patient refused prior therapy. currently agreeable will order IR drainage npo iv fluids iv abx if worsening will need surgery thank you (2) Diverticulitis large intestine William Mcpherson Mar 04, 2018 11:23
[2018-03-04] MEDS ORDERED: Lidocaine 1% Plain 30 ml INJ SCH (12:16)
--- NOTE | 2018-03-04 12:29 | Pre-Procedure Note/Attestation ---
Pre-Procedure Note/Attestation Complete Prior to Procedure Planned Procedure: not applicable Procedure Narrative: pelvic abscess drainage Indications for Procedure Pre-Operative Diagnosis: pelvic abscess Attestation I attest that I discussed the nature of the procedure; its benefits; risks and complications; and alternatives (and the risks and benefits of such alternatives ), prior to the procedure, with the patient (or the patient's legal asset protection representative). I attest that, if there was a reasonable possibility of needing a blood transfusion, the patient (or the patient's legal asset protection representative) was given the [facility] standardized written summary, pursuant to the [place] Blood Safety Act ([place] Health and Safety Code # 1645, as amended). I attest that I re-evaluated the patient just prior to the surgery and that there has been no change in the patient's H&P, except as documented below: Inocencio Vitale MD Mar 04, 2018 12:29
[2018-03-04] MEDS: fentaNYL 100 mcg/2 mL IV SCH ×2 (12:30→14:17)
[2018-03-04] MEDS ORDERED: Midazolam 2mg/2ml Inj IVP SCH (12:30)
--- NOTE | 2018-03-04 12:30 | Moderate Sedation - Procedural ---
Moderate Sedation HPI Home Medication Active Scripts Ciprofloxacin* (CIPRO*) 500 Mg Tablet, 500 MG PO BID, #14 TAB Prov:Matias Bass MD 02/11/18 Reported Medications Hydrocodone Bit/Acetaminophen 10-325* ([place] 10-325*) 1 Each Tablet, 1 TAB ORAL Q6H PRN for For Pain, #10 TAB 0 Refills PRN PAIN 03/02/18 Bimatoprost (LUMIGAN) 2.5 Ml Drops, 1 DROP BOTH EYES QHS 02/12/18 Metronidazole* (FLAGYL*) 500 Mg Tablet, 500 MG ORAL THREE TIMES A DAY, #21 TAB 02/11/18 Patient History Allergies: Coded Allergies: No Known Allergies (Unverified , 03/17/16) Pre-Procedural Mod Sedation Pre-Assessment Time: 12:35 Pre-Sedation Assessment: Elective Airway Assessment (Malampati): III Evaluation Hx of untoward rxns to mod sed: No Plan for Moderate Sedation: Midazolam, Fentanyl ASA Score: II Informed Consent The nature of the procedure/sedation; its benefits; risks and complications; and alternatives (and the risks and benefits of such alternatives) were discussed with the patient (or their legal manufacturers representative), prior to the procedure. All questions were answered to the patient's (or their legal manufacturers representative's) satisfaction and the patient (or their legal manufacturers representative) gave informed consent to the procedure. I attest that I re-evaluated the patient just prior to the surgery and that there has been no change in the patient's H&P, except as documented below: Post Procedure Assessment Post Procedure TIme: 13:30 Communication: No Apparent Limitation Mental Status: Awake Respiration: Unlabored Skin Condition: WNL Adomen: WNL Nausea: NO Vomiting: NO Inocencio Vitale MD Mar 04, 2018 12:30
--- NOTE | 2018-03-04 13:34 | Brief Operative Note ---
Immediate Post Operative Note Operative Note Chief Complaint: Fever Pre-op Diagnosis: pelvic abscess Procedure: CT guided pelvic abscess drainage Post-op Diagnosis: same as pre-op Findings: consistent w/pre-op dx studies Surgeon: Radha Hooper Anesthesia: local, moderate sedation Specimen: yes - 35 ml bloody pus Complications: none Condition: stable Fluids: none Drains: other - 8.5 F pigtail Implant(s) used?: No Inocencio Hooper MD Mar 04, 2018 13:34
--- NOTE | 2018-03-04 13:42 | Consultation ---
Consult Note Consult Note Asked to eval by Dr Arriaza 57-year-old female presents ED for evaluation. Complaining of abdominal pain. 10 out of 10, lower, sharp, nonradiating. Notes nausea and vomiting. Denies fevers or chills. States that she was seen here on 02/19 for the same thing. Was noted to have a "pelvic infection". Was subsequently admitted and transferred to another hospital. States that she was given IV antibiotics and was discharged home on antibiotics. States that pain got worse today. No other aggravating relieving factors. Denies any other associated symptoms Allergies: Coded Allergies: No Known Allergies (Unverified , 03/17/16) Patient History Past Medical History: HTN, asthma Past Medical History: No History, Except For Hx Hypertension: Yes Hx Asthma: Yes Assessment/Plan Low K Low Mag Diverticulitis IV supplement per consultants Guero Waller MD Mar 04, 2018 13:42
[2018-03-04] MEDS: HYDROcodone/Acetamin 10/325 tab ORAL PRN ×2 (15:08→22:34)
[2018-03-04] MEDS: Midazolam 2mg/2ml Inj IVP SCH ×2 (15:15→15:26)
--- NOTE | 2018-03-04 17:20 | Diagnostic Imaging Report ---
Indication: Pelvic abscess demonstrated on recent CT scan Technique: Informed consent obtained prior to commencement of the procedure. Prior imaging studies reviewed. Procedural timeout performed. Localizing acquisitions obtained through the pelvis. Intended puncture site was sterilely prepped and draped. Local anesthesia with 1% lidocaine. Under CT guidance, a 21-gauge needle was directed into the anterior pelvic abscess. CT slices confirm satisfactory needle position. 0.018 guidewire inserted, followed by insertion of a 6 [place] introducer assembly, introduction 0.035 guidewire, over which was passed a 8 [place] dilator and then an 8.5 [place] Mix-Mcneill pigtail catheter. Total 35 mL of bloody pus aspirated. Specimen was sent to the lab for microbial analysis. The patient tolerated the procedure well, without immediate complication. Intraprocedural analgesia and sedation infected using fentanyl and Versed. Total dose length product 2059 mGycm. CTDIvol(s) 19 x 9 mGy. Radiation dose was minimized using automated exposure control Comparison: Reference made to CT scan dated 03/02/2018 Findings: Intraprocedural images document satisfactory needle and wire placement. Completion image demonstrates satisfactory position of the catheter within the target abscess and markedly diminished size of the target abscess after evacuation of pus Impression: Successful aspiration and drainage of pelvic peridiverticular abscess, as described The CT scanner at [facility] is accredited by the [employer] and the scans are performed using protocols designed to limit radiation exposure to as low as reasonably achievable to attain images of sufficient resolution adequate for diagnostic evaluation.
[2018-03-05] VITALS: BP 130/73
[2018-03-05] MEDS: Morphine Sulfate 2mg/ml Inj IVP PRN ×6 (00:04→22:03)
[2018-03-05 04:00] VITALS: BP 137/76
[2018-03-05 07:09] LABS: BASOPHILS % (AUTO) 0.7 % (0.0-2.0); EOSINOPHILS % (AUTO) 0.6 % (0.0-3.0); HEMATOCRIT 35.9 % (37.0-47.0); LYMPHOCYTES % (AUTO) 24.4 % (20.0-45.0); MEAN CORPUSCULAR VOLUME 83 FL (80-99); MONOCYTES % (AUTO) 8.8 % (1.0-10.0); NEUTROPHILS % (AUTO) 65.6 % (45.0-75.0); PLATELET COUNT 183 K/UL (150-450); RED BLOOD COUNT 4.34 M/UL (4.20-5.40); RED CELL DISTRIBUTION WIDTH 11.7 % (11.6-14.8); WHITE BLOOD COUNT 9.6 K/UL (4.8-10.8)
[2018-03-05 07:16] LABS: ANION GAP 9 mmol/L (5-15); BLOOD UREA NITROGEN 5 mg/dL (7-18); CALCIUM 8.6 MG/DL (8.5-10.1); CARBON DIOXIDE 27 MMOL/L (21-32); CHLORIDE 102 MMOL/L (98-107); POTASSIUM 3.4 MMOL/L (3.5-5.1); SODIUM 138 MMOL/L (136-145)
[2018-03-05 08:00] VITALS: BP 113/73
[2018-03-05] MEDS: Piperacillin/Tazobactam 3.375 GM in D5W 110 ML IVPB SCH ×4 (08:30→16:37)
[2018-03-05] MEDS: Docusate 100mg cap ORAL SCH ×2 (08:30→17:32)
--- NOTE | 2018-03-05 10:41 | General Progress Note ---
Assessment/Plan Problem List: (1) Diverticulitis large intestine ICD Codes: K57.32 - Diverticulitis of large intestine without perforation or abscess without bleeding SNOMED: 4147456 Qualifiers: Qualified Codes: K57.20 - Diverticulitis of large intestine with perforation and abscess without bleeding Assessment/Plan s/p CT guided abscess drainage iv abx fu labs colace fu surg recs pain control Subjective ROS Limited/Unobtainable: Yes Allergies: Coded Allergies: No Known Allergies (Unverified , 03/17/16) Objective Last 24 Hour Vital Signs Date Time Temp Pulse Resp B/P (MAP) Pulse Ox O2 Delivery O2 Flow Rate FiO2 03/05/18 08:00 98.5 102 18 113/73 (86) 98 03/05/18 07:37 Room Air 03/05/18 04:00 98.3 97 18 137/76 (96) 97 03/05/18 00:00 99.0 100 19 130/73 (92) 95 03/04/18 21:00 Room Air 03/04/18 20:00 100.2 111 19 129/79 (96) 95 03/04/18 17:40 99.0 120 20 119/70 (86) 98 03/04/18 16:40 106 20 149/ 03/04/18 15:40 100 20 126/77 (93) 98 03/04/18 15:38 99.7 03/04/18 15:10 96 20 130/78 (95) 98 03/04/18 14:40 88 20 131/77 (95) 03/04/18 14:28 99.7 03/04/18 14:25 84 20 137/72 (93) 97 03/04/18 14:10 95 20 128/77 (94) 95 03/04/18 13:55 99.2 91 20 129/73 (91) 98 03/04/18 13:45 99.2 91 20 129/73 (91) 98 03/04/18 13:00 98.0 89 16 100 Nasal Cannula 2.0 89 95 95 97 84 98 88 100 Intake and Output 03/04/18 03/05/18 19:00 07:00 Intake Total 570 ml 620.0 ml Output Total 475 ml 20 ml Balance 95 ml 600.0 ml Intake Oral 240 ml 100 ml IV Total 330 ml 520.0 ml Output Urine Total 400 ml Emesis 50 ml Other 25 ml 20 ml # Voids 3 Laboratory Tests 03/04/18 13:30: Body Fluid Source Intraabdominal, Body Fluid Volume 30, Body Fluid Appearance Turbid, Body Fluid RBC 181602, Body Fluid Total Nucleated Cells 17441, Body Fluid Polynuclear WBCs (%) 95, Body Fluid Mononuclear WBCs (%) 4, Body Fluid Mesothelial Cells (%) 1 03/05/18 04:45: White Blood Count 9.6, Red Blood Count 4.34, Hemoglobin 12.0, Hematocrit 35.9L, Mean Corpuscular Volume 83, Mean Corpuscular Hemoglobin 27.7, Mean Corpuscular Hemoglobin Concent 33.4, Red Cell Distribution Width 11.7, Platelet Count 183, Mean Platelet Volume 9.2, Neutrophils (%) (Auto) 65.6, Lymphocytes (%) (Auto) 24.4, Monocytes (%) (Auto) 8.8, Eosinophils (%) (Auto) 0.6, Basophils (%) (Auto ) 0.7, Sodium Level 138, Potassium Level 3.4L, Chloride Level 102, Carbon Dioxide Level 27, Anion Gap 9, Blood Urea Nitrogen 5L, Creatinine 1.0, Estimat Glomerular Filtration Rate > 60, Glucose Level 94, Calcium Level 8.6 Height (Feet): 5 Height (Inches): 7.00 Weight (Pounds): 244 General Appearance: alert EENT: normal ENT inspection Neck: supple Cardiovascular: normal rate Respiratory/Chest: decreased breath sounds Abdomen: soft, hypoactive bowel sounds, tender Extremities: non-tender Brandt Sylvester MD Mar 05, 2018 10:41
[2018-03-05 12:00] VITALS: BP 124/68
--- NOTE | 2018-03-05 13:31 | Nephrology Progress Note ---
Assessment/Plan Problem List: (1) Diverticulitis large intestine (2) Hypokalemia (3) Hypomagnesemia Assessment Low K Low Mag Diverticulitis Plan change IV fluid Monitor lytes per consultants Subjective ROS Limited/Unobtainable: No Constitutional: Reports: malaise Objective Objective Last 24 Hour Vital Signs Date Time Temp Pulse Resp B/P (MAP) Pulse Ox O2 Delivery O2 Flow Rate FiO2 03/05/18 08:00 98.5 102 18 113/73 (86) 98 03/05/18 07:37 Room Air 03/05/18 04:00 98.3 97 18 137/76 (96) 97 03/05/18 00:00 99.0 100 19 130/73 (92) 95 03/04/18 21:00 Room Air 03/04/18 20:00 100.2 111 19 129/79 (96) 95 03/04/18 17:40 99.0 120 20 119/70 (86) 98 03/04/18 16:40 106 20 149/ 03/04/18 15:40 100 20 126/77 (93) 98 03/04/18 15:38 99.7 03/04/18 15:10 96 20 130/78 (95) 98 03/04/18 14:40 88 20 131/77 (95) 03/04/18 14:28 99.7 03/04/18 14:25 84 20 137/72 (93) 97 03/04/18 14:10 95 20 128/77 (94) 95 03/04/18 13:55 99.2 91 20 129/73 (91) 98 03/04/18 13:45 99.2 91 20 129/73 (91) 98 Intake and Output 03/04/18 03/05/18 18:59 06:59 Intake Total 630 ml 560.0 ml Output Total 475 ml 20 ml Balance 155 ml 540.0 ml Intake Oral 240 ml 100 ml IV Total 390 ml 460.0 ml Output Urine Total 400 ml Emesis 50 ml Other 25 ml 20 ml # Voids 3 Laboratory Tests 03/04/18 13:30: Body Fluid Source Intraabdominal, Body Fluid Volume 30, Body Fluid Appearance Turbid, Body Fluid RBC 221279, Body Fluid Total Nucleated Cells 73164, Body Fluid Polynuclear WBCs (%) 95, Body Fluid Mononuclear WBCs (%) 4, Body Fluid Mesothelial Cells (%) 1 03/05/18 04:45: White Blood Count 9.6, Red Blood Count 4.34, Hemoglobin 12.0, Hematocrit 35.9L, Mean Corpuscular Volume 83, Mean Corpuscular Hemoglobin 27.7, Mean Corpuscular Hemoglobin Concent 33.4, Red Cell Distribution Width 11.7, Platelet Count 183, Mean Platelet Volume 9.2, Neutrophils (%) (Auto) 65.6, Lymphocytes (%) (Auto) 24.4, Monocytes (%) (Auto) 8.8, Eosinophils (%) (Auto) 0.6, Basophils (%) (Auto ) 0.7, Sodium Level 138, Potassium Level 3.4L, Chloride Level 102, Carbon Dioxide Level 27, Anion Gap 9, Blood Urea Nitrogen 5L, Creatinine 1.0, Estimat Glomerular Filtration Rate > 60, Glucose Level 94, Calcium Level 8.6 Height (Feet): 5 Height (Inches): 7.00 Weight (Pounds): 244 General Appearance: no apparent distress Cardiovascular: tachycardia Respiratory/Chest: lungs clear Abdomen: soft Objective no change Guero Waller MD Mar 05, 2018 13:31
[2018-03-05] MEDS: D5NS w/KCl 40mEq 1000ml 1,000 ML IV SCH (14:00)
[2018-03-05 16:00] VITALS: BP 135/85
--- NOTE | 2018-03-05 16:14 | General Progress Note ---
Assessment/Plan Assessment/Plan Covering for Dr. Hero Arriaza Problem List: (1) Diverticulitis large intestine ICD Codes: K57.32 - Diverticulitis of large intestine without perforation or abscess without bleeding SNOMED: 1930006 Qualifiers: Qualified Codes: K57.20 - Diverticulitis of large intestine with perforation and abscess without bleeding (2) Muscle strain ICD Codes: T14.8 - Other injury of unspecified body region SNOMED: 22688304 (3) Intra-abdominal abscess ICD Codes: K65.1 - Peritoneal abscess SNOMED: 00217917 Status: unchanged Subjective Constitutional: Denies: no symptoms, chills, diaphoresis, fever, malaise, weakness, other HEENT: Denies: no symptoms, eye pain, blurred vision, tearing, double vision, ear pain, ear discharge, nose pain, nose congestion, throat pain, throat swelling, mouth pain, mouth swelling, other Cardiovascular: Denies: no symptoms, chest pain, edema, irregular heart rate, lightheadedness, palpitations, syncope, other Respiratory: Denies: no symptoms, cough, orthopnea, shortness of breath, SOB with excertion, SOB at rest, sputum, stridor, wheezing, other Gastrointestinal/Abdominal: Denies: no symptoms, abdomen distended, abdominal pain, black stools, tarry stools, blood in stool, constipated, diarrhea, difficulty swallowing, nausea, poor appetite, poor fluid intake, rectal bleeding , vomiting, other Genitourinary: Denies: no symptoms, burning, discharge, frequency, flank pain, hematuria, incontinence, pain, urgency, other Neurologic/Psychiatric: Denies: no symptoms, anxiety, depressed, emotional problems, headache, numbness, paresthesia, pre-existing deficit, seizure, tingling, tremors, weakness, other Endocrine: Denies: no symptoms, excessive sweating, flushing, intolerance to cold, intolerance to heat, increased hunger, increased thirst, increased urine, unexplained weight gain, unexplained weight loss, other Hematologic/Lymphatic: Denies: no symptoms, anemia, easy bleeding, easy bruising, other Allergies: Coded Allergies: No Known Allergies (Unverified , 03/17/16) Subjective 03/05: s/p successfu ct guided drainage yesterday of abscess, some abd pain today, k was low Objective Last 24 Hour Vital Signs Date Time Temp Pulse Resp B/P (MAP) Pulse Ox O2 Delivery O2 Flow Rate FiO2 03/05/18 12:00 98.4 96 124/68 (86) 03/05/18 08:00 98.5 102 18 113/73 (86) 98 03/05/18 07:37 Room Air 03/05/18 04:00 98.3 97 18 137/76 (96) 97 03/05/18 00:00 99.0 100 19 130/73 (92) 95 03/04/18 21:00 Room Air 03/04/18 20:00 100.2 111 19 129/79 (96) 95 03/04/18 17:40 99.0 120 20 119/70 (86) 98 03/04/18 16:40 106 20 149/ Intake and Output 03/04/18 03/05/18 18:59 06:59 Intake Total 630 ml 560.0 ml Output Total 475 ml 20 ml Balance 155 ml 540.0 ml Intake Oral 240 ml 100 ml IV Total 390 ml 460.0 ml Output Urine Total 400 ml Emesis 50 ml Other 25 ml 20 ml # Voids 3 Laboratory Tests 03/05/18 04:45: White Blood Count 9.6, Red Blood Count 4.34, Hemoglobin 12.0, Hematocrit 35.9L, Mean Corpuscular Volume 83, Mean Corpuscular Hemoglobin 27.7, Mean Corpuscular Hemoglobin Concent 33.4, Red Cell Distribution Width 11.7, Platelet Count 183, Mean Platelet Volume 9.2, Neutrophils (%) (Auto) 65.6, Lymphocytes (%) (Auto) 24.4, Monocytes (%) (Auto) 8.8, Eosinophils (%) (Auto) 0.6, Basophils (%) (Auto ) 0.7, Sodium Level 138, Potassium Level 3.4L, Chloride Level 102, Carbon Dioxide Level 27, Anion Gap 9, Blood Urea Nitrogen 5L, Creatinine 1.0, Estimat Glomerular Filtration Rate > 60, Glucose Level 94, Calcium Level 8.6 Height (Feet): 5 Height (Inches): 7.00 Weight (Pounds): 244 General Appearance: lethargic EENT: TMs normal Cardiovascular: regular rhythm Respiratory/Chest: normal breath sounds Abdomen: no organomegaly Pelvis: no masses Extremities: non-tender Edema: mild edema Neurologic: oriented x 3 Skin: normal pigmentation Kleynberg,Chele L. MD Mar 05, 2018 16:14
--- NOTE | 2018-03-05 16:21 | General Surgery Progress Note ---
General Surgery-Progress Note Subjective Additional Comments doing well. s/p drain placement. feels well Objective Last 24 Hour Vital Signs Date Time Temp Pulse Resp B/P (MAP) Pulse Ox O2 Delivery O2 Flow Rate FiO2 03/05/18 12:00 98.4 96 124/68 (86) 03/05/18 08:00 98.5 102 18 113/73 (86) 98 03/05/18 07:37 Room Air 03/05/18 04:00 98.3 97 18 137/76 (96) 97 03/05/18 00:00 99.0 100 19 130/73 (92) 95 03/04/18 21:00 Room Air 03/04/18 20:00 100.2 111 19 129/79 (96) 95 03/04/18 17:40 99.0 120 20 119/70 (86) 98 03/04/18 16:40 106 20 149/ I&O Intake and Output 03/04/18 03/05/18 18:59 06:59 Intake Total 630 ml 560.0 ml Output Total 475 ml 20 ml Balance 155 ml 540.0 ml Intake Oral 240 ml 100 ml IV Total 390 ml 460.0 ml Output Urine Total 400 ml Emesis 50 ml Other 25 ml 20 ml # Voids 3 Wound: clean Drains: other Cardiovascular: RSR Respiratory: clear Abdomen: soft, flat, non-tender, present bowel sounds Extremities: no cyanosis Laboratory Tests Test 03/05/18 04:45 White Blood Count 9.6 K/UL (4.8-10.8) Red Blood Count 4.34 M/UL (4.20-5.40) Hemoglobin 12.0 G/DL (12.0-16.0) Hematocrit 35.9 % (37.0-47.0) L Mean Corpuscular Volume 83 FL (80-99) Mean Corpuscular Hemoglobin 27.7 PG (27.0-31.0) Mean Corpuscular Hemoglobin Concent 33.4 G/DL (32.0-36.0) Red Cell Distribution Width 11.7 % (11.6-14.8) Platelet Count 183 K/UL (150-450) Mean Platelet Volume 9.2 FL (6.5-10.1) Neutrophils (%) (Auto) 65.6 % (45.0-75.0) Lymphocytes (%) (Auto) 24.4 % (20.0-45.0) Monocytes (%) (Auto) 8.8 % (1.0-10.0) Eosinophils (%) (Auto) 0.6 % (0.0-3.0) Basophils (%) (Auto) 0.7 % (0.0-2.0) Sodium Level 138 MMOL/L (136-145) Potassium Level 3.4 MMOL/L (3.5-5.1) L Chloride Level 102 MMOL/L (98-107) Carbon Dioxide Level 27 MMOL/L (21-32) Anion Gap 9 mmol/L (5-15) Blood Urea Nitrogen 5 mg/dL (7-18) L Creatinine 1.0 MG/DL (0.55-1.30) Estimat Glomerular Filtration Rate > 60 mL/min (>60) Glucose Level 94 MG/DL (74-106) Calcium Level 8.6 MG/DL (8.5-10.1) Plan Problems: (1) Intra-abdominal abscess Assessment & Plan: abscess from perforated sigmoid diverticulitis. as been ongoing for some time now and patient refused prior therapy. currently agreeable s/p IR drain placement doing well okay for diet iv fluids iv abx thank you (2) Diverticulitis large intestine William Mcpherson Mar 05, 2018 16:21
[2018-03-05 20:00] VITALS: BP 99/64
[2018-03-06] VITALS: BP 95/56
[2018-03-06] MEDS: Piperacillin/Tazobactam 3.375 GM in D5W 110 ML IVPB SCH ×4 (00:42→23:44)
[2018-03-06 04:00] VITALS: BP 133/67
[2018-03-06] MEDS: Morphine Sulfate 2mg/ml Inj IVP PRN ×4 (05:53→22:19)
[2018-03-06 08:00] VITALS: BP_SYST 115; BP_SYST 118; BP_DIAS 59; BP_DIAS 78
[2018-03-06 08:16] LABS: BASOPHILS % (AUTO) 2.1 % (0.0-2.0); EOSINOPHILS % (AUTO) 2.6 % (0.0-3.0); HEMATOCRIT 38.8 % (37.0-47.0); HEMOGLOBIN 12.9 G/DL (12.0-16.0); LYMPHOCYTES % (AUTO) 46.4 % (20.0-45.0); MEAN CORPUSCULAR VOLUME 84 FL (80-99); MONOCYTES % (AUTO) 12.4 % (1.0-10.0); NEUTROPHILS % (AUTO) 36.5 % (45.0-75.0); PLATELET COUNT 205 K/UL (150-450); RED BLOOD COUNT 4.62 M/UL (4.20-5.40); RED CELL DISTRIBUTION WIDTH 11.8 % (11.6-14.8); WHITE BLOOD COUNT 6.5 K/UL (4.8-10.8)
[2018-03-06 08:41] LABS: ANION GAP 10 mmol/L (5-15); BLOOD UREA NITROGEN 4 mg/dL (7-18); CARBON DIOXIDE 26 MMOL/L (21-32); CHLORIDE 103 MMOL/L (98-107); POTASSIUM 3.5 MMOL/L (3.5-5.1); SODIUM 139 MMOL/L (136-145)
[2018-03-06] MEDS: Docusate 100mg cap ORAL SCH ×3 (09:22→17:55)
[2018-03-06] MEDS: D5NS w/KCl 40mEq 1000ml 1,000 ML IV SCH (09:30)
--- NOTE | 2018-03-06 10:15 | General Surgery Progress Note ---
General Surgery-Progress Note Subjective Symptoms: improved, tolerating diet, passing flatus Additional Comments mild abdominal discomfort. drain with serosang output Objective Last 24 Hour Vital Signs Date Time Temp Pulse Resp B/P (MAP) Pulse Ox O2 Delivery O2 Flow Rate FiO2 03/06/18 09:00 Room Air 03/06/18 08:00 98.2 82 17 118/78 (91) 97 03/06/18 04:00 98.3 18 133/67 (89) 100 03/06/18 00:00 97.9 92 20 95/56 (69) 100 03/05/18 21:00 Room Air 03/05/18 20:00 99.2 94 20 99/64 (76) 99 03/05/18 18:03 97.4 03/05/18 16:00 97.4 80 17 135/85 (102) 98 03/05/18 12:00 98.4 96 124/68 (86) I&O Intake and Output 03/05/18 03/06/18 19:00 07:00 Intake Total 100 ml Output Total 15 ml 20 ml Balance -15 ml 80 ml Intake Oral 100 ml Other 15 ml 20 ml # Voids 1 Wound: clean Drains: other Cardiovascular: RSR Respiratory: clear Abdomen: soft, flat, tenderness, present bowel sounds Extremities: no tenderness, no cyanosis Laboratory Tests Test 03/06/18 07:28 White Blood Count 6.5 K/UL (4.8-10.8) Red Blood Count 4.62 M/UL (4.20-5.40) Hemoglobin 12.9 G/DL (12.0-16.0) Hematocrit 38.8 % (37.0-47.0) Mean Corpuscular Volume 84 FL (80-99) Mean Corpuscular Hemoglobin 27.8 PG (27.0-31.0) Mean Corpuscular Hemoglobin Concent 33.1 G/DL (32.0-36.0) Red Cell Distribution Width 11.8 % (11.6-14.8) Platelet Count 205 K/UL (150-450) Mean Platelet Volume 8.7 FL (6.5-10.1) Neutrophils (%) (Auto) 36.5 % (45.0-75.0) L Lymphocytes (%) (Auto) 46.4 % (20.0-45.0) H Monocytes (%) (Auto) 12.4 % (1.0-10.0) H Eosinophils (%) (Auto) 2.6 % (0.0-3.0) Basophils (%) (Auto) 2.1 % (0.0-2.0) H Sodium Level 139 MMOL/L (136-145) Potassium Level 3.5 MMOL/L (3.5-5.1) Chloride Level 103 MMOL/L (98-107) Carbon Dioxide Level 26 MMOL/L (21-32) Anion Gap 10 mmol/L (5-15) Blood Urea Nitrogen 4 mg/dL (7-18) L Creatinine 1.0 MG/DL (0.55-1.30) Estimat Glomerular Filtration Rate > 60 mL/min (>60) Glucose Level 107 MG/DL (74-106) H Calcium Level 9.0 MG/DL (8.5-10.1) Plan Problems: (1) Intra-abdominal abscess Assessment & Plan: abscess from perforated sigmoid diverticulitis. as been ongoing for some time now and patient refused prior therapy. currently agreeable s/p IR drain placement doing well okay for diet iv fluids iv abx thank you (2) Diverticulitis large intestine William Mcpherson Mar 06, 2018 10:15
--- NOTE | 2018-03-06 11:36 | GI Progress Note ---
Assessment/Plan Problems: (1) Abscess of sigmoid colon due to diverticulitis ICD Codes: K57.20 - Diverticulitis of large intestine with perforation and abscess without bleeding SNOMED: 0304130605193838 (2) Intra-abdominal abscess ICD Codes: K65.1 - Peritoneal abscess SNOMED: 33194648 (3) Diverticulitis large intestine ICD Codes: K57.32 - Diverticulitis of large intestine without perforation or abscess without bleeding SNOMED: 5147175 Qualifiers: Qualified Codes: K57.20 - Diverticulitis of large intestine with perforation and abscess without bleeding Status: progressing Status Narrative Discussed with Dr. Sylvester Assessment/Plan s/p CT guided abscess drainage iv abx fu labs colace fu surg recs pain control The patient was seen and examined at bedside and all new and available data was reviewed in the patients chart. I agree with the above findings, impression and plan. (Patient seen earlier today. Signature stamp does not reflect patient encounter time.). - Brandt Sylvester MD Subjective Gastrointestinal/Abdominal: Reports: abdominal pain Objective Last 24 Hour Vital Signs Date Time Temp Pulse Resp B/P (MAP) Pulse Ox O2 Delivery O2 Flow Rate FiO2 03/06/18 11:19 98.2 03/06/18 09:00 Room Air 03/06/18 08:00 98.2 82 17 118/78 (91) 97 03/06/18 04:00 98.3 18 133/67 (89) 100 03/06/18 00:00 97.9 92 20 95/56 (69) 100 03/05/18 21:00 Room Air 03/05/18 20:00 99.2 94 20 99/64 (76) 99 03/05/18 16:00 97.4 80 17 135/85 (102) 98 03/05/18 12:00 98.4 96 124/68 (86) Intake and Output 03/05/18 03/06/18 19:00 07:00 Intake Total 100 ml Output Total 15 ml 20 ml Balance -15 ml 80 ml Intake Oral 100 ml Other 15 ml 20 ml # Voids 1 Laboratory Tests Test 03/06/18 07:28 White Blood Count 6.5 K/UL (4.8-10.8) Red Blood Count 4.62 M/UL (4.20-5.40) Hemoglobin 12.9 G/DL (12.0-16.0) Hematocrit 38.8 % (37.0-47.0) Mean Corpuscular Volume 84 FL (80-99) Mean Corpuscular Hemoglobin 27.8 PG (27.0-31.0) Mean Corpuscular Hemoglobin Concent 33.1 G/DL (32.0-36.0) Red Cell Distribution Width 11.8 % (11.6-14.8) Platelet Count 205 K/UL (150-450) Mean Platelet Volume 8.7 FL (6.5-10.1) Neutrophils (%) (Auto) 36.5 % (45.0-75.0) L Lymphocytes (%) (Auto) 46.4 % (20.0-45.0) H Monocytes (%) (Auto) 12.4 % (1.0-10.0) H Eosinophils (%) (Auto) 2.6 % (0.0-3.0) Basophils (%) (Auto) 2.1 % (0.0-2.0) H Sodium Level 139 MMOL/L (136-145) Potassium Level 3.5 MMOL/L (3.5-5.1) Chloride Level 103 MMOL/L (98-107) Carbon Dioxide Level 26 MMOL/L (21-32) Anion Gap 10 mmol/L (5-15) Blood Urea Nitrogen 4 mg/dL (7-18) L Creatinine 1.0 MG/DL (0.55-1.30) Estimat Glomerular Filtration Rate > 60 mL/min (>60) Glucose Level 107 MG/DL (74-106) H Calcium Level 9.0 MG/DL (8.5-10.1) Height (Feet): 5 Height (Inches): 7.00 Weight (Pounds): 251 General Appearance: WD/WN, no apparent distress, alert Cardiovascular: normal rate Respiratory/Chest: normal breath sounds, no respiratory distress Abdominal Exam: normal bowel sounds, non tender, soft Extremities: normal range of motion, non-tender Casey Concepcion NP Mar 06, 2018 11:36
--- NOTE | 2018-03-06 11:49 | Infectious Diseases Prog Note ---
Assessment/Plan Assessment/Plan Abx: ZOsyn 03/02- Flagyl 03/02- Assessment: Subacute sigmoid diverticulitis w/ microperforation c/w intraabdominal abscess -03/04 IR guided draange: Total 35 mL of bloody pus aspirated. -fluid WBC90k (N 95); cx p -CT abd/p: 1. Colonic diverticulosis with segmental wall thickening of the distal sigmoid colon concerning for acute diverticulitis.5.6 x 5.5 x 4.4 cm peripherally enhancing air-fluid collection adjacent to the inflamed distal sigmoid colon, anterior to uterus, and superior to the urinary bladder, concerning for a contained perforation versus abscess. This is not significantly changed in size compared to the prior exam. Multilobulated fibroid uterus, with coarse calcifications. Low grade fever, improving No leuocytosis HTN asthma Plan: -Continue ZOsyn #5 for diverticulitis and abscess pending cultures -03/04 SP Flagyl #3 -f/u cx -Monitor CBC/CMP, temperatures -Aspiration precautions -Sx f/u Thank you for this consultation. Will continue to follow along with you. Discussed with RN. Subjective Allergies: Coded Allergies: No Known Allergies (Unverified , 03/17/16) Subjective afebrile abscess cx p Objective Vital Signs Last 24 Hour Vital Signs Date Time Temp Pulse Resp B/P (MAP) Pulse Ox O2 Delivery O2 Flow Rate FiO2 03/06/18 11:19 98.2 03/06/18 09:00 Room Air 03/06/18 08:00 98.2 82 17 118/78 (91) 97 03/06/18 04:00 98.3 18 133/67 (89) 100 03/06/18 00:00 97.9 92 20 95/56 (69) 100 03/05/18 21:00 Room Air 03/05/18 20:00 99.2 94 20 99/64 (76) 99 03/05/18 16:00 97.4 80 17 135/85 (102) 98 03/05/18 12:00 98.4 96 124/68 (86) Height (Feet): 5 Height (Inches): 7.00 Weight (Pounds): 251 Objective Wound: clean Drains: other Cardiovascular: RSR Respiratory: clear Abdomen: soft, flat, tenderness, present bowel sounds Extremities: no tenderness, no cyanosis Microbiology Date/Time Source Procedure Growth Status 03/04/18 13:30 Abdominal Abscess Anaerobic Culture - Preliminary Resulted Laboratory Tests Test 03/06/18 07:28 White Blood Count 6.5 K/UL (4.8-10.8) Red Blood Count 4.62 M/UL (4.20-5.40) Hemoglobin 12.9 G/DL (12.0-16.0) Hematocrit 38.8 % (37.0-47.0) Mean Corpuscular Volume 84 FL (80-99) Mean Corpuscular Hemoglobin 27.8 PG (27.0-31.0) Mean Corpuscular Hemoglobin Concent 33.1 G/DL (32.0-36.0) Red Cell Distribution Width 11.8 % (11.6-14.8) Platelet Count 205 K/UL (150-450) Mean Platelet Volume 8.7 FL (6.5-10.1) Neutrophils (%) (Auto) 36.5 % (45.0-75.0) L Lymphocytes (%) (Auto) 46.4 % (20.0-45.0) H Monocytes (%) (Auto) 12.4 % (1.0-10.0) H Eosinophils (%) (Auto) 2.6 % (0.0-3.0) Basophils (%) (Auto) 2.1 % (0.0-2.0) H Sodium Level 139 MMOL/L (136-145) Potassium Level 3.5 MMOL/L (3.5-5.1) Chloride Level 103 MMOL/L (98-107) Carbon Dioxide Level 26 MMOL/L (21-32) Anion Gap 10 mmol/L (5-15) Blood Urea Nitrogen 4 mg/dL (7-18) L Creatinine 1.0 MG/DL (0.55-1.30) Estimat Glomerular Filtration Rate > 60 mL/min (>60) Glucose Level 107 MG/DL (74-106) H Calcium Level 9.0 MG/DL (8.5-10.1) Current Medications Medications (Trade) Dose Ordered Sig/Calos Route PRN Reason Start Time Stop Time Status Last Admin Dose Admin Acetaminophen (Tylenol) 650 mg Q6H PRN ORAL Mild Pain/Temp > 100.5 03/03/18 00:15 04/02/18 00:14 03/03/18 00:20 Acetaminophen/ Hydrocodone Bitart (Garner 10/325) 1 tab Q6H PRN ORAL for moderate pain (4-6) 03/03/18 00:45 03/10/18 00:44 03/04/18 22:34 Dextrose/ Electrolytes 1,000 ml @ 50 mls/hr Q20H IV 03/05/18 14:00 04/04/18 13:59 03/06/18 09:30 Docusate Sodium (Colace) 100 mg TID ORAL 03/05/18 18:00 04/02/18 08:59 03/06/18 09:22 Famotidine (Pepcid) 20 mg BID ORAL 03/05/18 13:30 04/04/18 13:29 03/06/18 09:22 Morphine Sulfate (Morphine Sulfate) 2 mg Q4H PRN IVP for severe pain (7-10) 03/03/18 08:45 03/09/18 20:44 03/06/18 10:49 Ondansetron HCl (Zofran) 4 mg Q6H PRN IVP Nausea & Vomiting 03/02/18 21:00 04/01/18 20:59 03/05/18 00:58 Piperacillin Sod/ Tazobactam Sod 3.375 gm/Dextrose 110 ml @ 27.5 mls/hr Q8H IVPB 03/03/18 16:00 03/10/18 15:59 03/06/18 09:22 Marlen Phillips M.D. Mar 06, 2018 11:49
[2018-03-06 12:00] VITALS: BP 120/78
--- NOTE | 2018-03-06 12:12 | Nephrology Progress Note ---
Assessment/Plan Problem List: (1) Diverticulitis large intestine (2) Hypokalemia (3) Hypomagnesemia Assessment Low K Low Mag Diverticulitis Plan change IV fluid Monitor lytes per consultants Subjective ROS Limited/Unobtainable: No Constitutional: Reports: malaise, weakness Objective Objective Last 24 Hour Vital Signs Date Time Temp Pulse Resp B/P (MAP) Pulse Ox O2 Delivery O2 Flow Rate FiO2 03/06/18 11:19 98.2 03/06/18 09:00 Room Air 03/06/18 08:00 98.2 82 17 118/78 (91) 97 03/06/18 04:00 98.3 18 133/67 (89) 100 03/06/18 00:00 97.9 92 20 95/56 (69) 100 03/05/18 21:00 Room Air 03/05/18 20:00 99.2 94 20 99/64 (76) 99 03/05/18 16:00 97.4 80 17 135/85 (102) 98 Intake and Output 03/05/18 03/06/18 19:00 07:00 Intake Total 100 ml Output Total 15 ml 20 ml Balance -15 ml 80 ml Intake Oral 100 ml Other 15 ml 20 ml # Voids 1 Laboratory Tests 03/06/18 07:28: White Blood Count 6.5, Red Blood Count 4.62, Hemoglobin 12.9, Hematocrit 38.8, Mean Corpuscular Volume 84, Mean Corpuscular Hemoglobin 27.8, Mean Corpuscular Hemoglobin Concent 33.1, Red Cell Distribution Width 11.8, Platelet Count 205, Mean Platelet Volume 8.7, Neutrophils (%) (Auto) 36.5L, Lymphocytes (%) (Auto) 46.4H, Monocytes (%) (Auto) 12.4H, Eosinophils (%) (Auto) 2.6, Basophils (%) ( Auto) 2.1H, Sodium Level 139, Potassium Level 3.5, Chloride Level 103, Carbon Dioxide Level 26, Anion Gap 10, Blood Urea Nitrogen 4L, Creatinine 1.0, Estimat Glomerular Filtration Rate > 60, Glucose Level 107H, Calcium Level 9.0 Height (Feet): 5 Height (Inches): 7.00 Weight (Pounds): 251 General Appearance: no apparent distress Objective no change Guero Waller MD Mar 06, 2018 12:12
[2018-03-06] MEDS ORDERED: Tubing IV Secondary IV ONE (15:35)
[2018-03-06] MEDS ORDERED: NS 500ML ONE (15:35)
[2018-03-06] MEDS ORDERED: D5 1/2NS 1000ml IV ONE (15:40)
[2018-03-06 16:00] VITALS: BP 115/72
[2018-03-07] VITALS: BP 114/50
[2018-03-07] MEDS ORDERED: Zolpidem 5mg tab ORAL PRN (00:53)
[2018-03-07 01:28] VITALS: BP 114/50
--- NOTE | 2018-03-07 02:00 | Operative Note - Dictated ---
PULMONARY CONSULTATION HISTORY OF PRESENT ILLNESS: This is a very pleasant, 57-year-old female, who was admitted with diverticulitis. She has been managed here at this hospital by multiple consultants including Nephrology, Hematology, and GI. She is also being followed carefully on general surgery. I admitted her to this hospital less than a month ago with similar problem and at that time, had consulted surgery as well. I have now been notified by insurance that she is HMO member that I need to assume care. I have left messages for Dr. Irineo Arriaza to exchange in his office but I have not heard back. We will follow peripherally till I have received confirmation that the patient has been admitted under my care by Dr. Irineo Arriaza. Matias Bass M.D. DR: Devin JOB#: [id number] CC:
[2018-03-07 04:00] VITALS: BP 141/86
[2018-03-07] MEDS: D5NS w/KCl 40mEq 1000ml 1,000 ML IV SCH (06:00)
[2018-03-07 08:00] VITALS: BP 124/63
--- NOTE | 2018-03-07 08:09 | General Progress Note ---
Assessment/Plan Status: stable Assessment/Plan Covering for Dr. Hero Arriaza Problem List: (1) Diverticulitis large intestine ICD Codes: K57.32 - Diverticulitis of large intestine without perforation or abscess without bleeding SNOMED: 6386561 Qualifiers: Qualified Codes: K57.20 - Diverticulitis of large intestine with perforation and abscess without bleeding (2) Muscle strain ICD Codes: T14.8 - Other injury of unspecified body region SNOMED: 31252098 (3) Intra-abdominal abscess ICD Codes: K65.1 - Peritoneal abscess SNOMED: 22756919 Status: --> s/p IR drain placement --> doing well Subjective Date patient seen: Mar 06, 2018 Allergies: Coded Allergies: No Known Allergies (Unverified , 03/17/16) All Systems: reviewed and negative except above Subjective 03/05: s/p successful ct guided drainage yesterday of abscess, some abd pain today, k was low 03/06: Pt awake and alert. No acute events. Pt c/o abd pain. VS stable. Objective Last 24 Hour Vital Signs Date Time Temp Pulse Resp B/P (MAP) Pulse Ox O2 Delivery O2 Flow Rate FiO2 03/07/18 04:00 98.8 105 20 141/86 (104) 96 03/07/18 00:00 99.0 87 18 114/50 (71) 97 03/06/18 21:00 Room Air 03/06/18 16:00 98.4 85 20 115/72 (86) 98 03/06/18 15:56 98.0 03/06/18 12:00 98.0 81 18 120/78 (92) 98 03/06/18 09:00 Room Air Intake and Output 03/06/18 03/07/18 19:00 07:00 Intake Total 1250 ml Output Total 22 ml Balance 1250 ml -22 ml IV Total 50 ml Other 1200 ml Other 22 ml # Voids 2 Height (Feet): 5 Height (Inches): 7.00 Weight (Pounds): 251 Chele Rosenthal MD Mar 07, 2018 08:09
[2018-03-07] MEDS: Piperacillin/Tazobactam 3.375 GM in D5W 110 ML IVPB SCH (08:13)
[2018-03-07] MEDS: Docusate 100mg cap ORAL SCH ×2 (08:14→13:06)
[2018-03-07 08:50] LABS: BASOPHILS % (AUTO) 1.4 % (0.0-2.0); EOSINOPHILS % (AUTO) 4.1 % (0.0-3.0); HEMATOCRIT 38.7 % (37.0-47.0); HEMOGLOBIN 12.6 G/DL (12.0-16.0); MEAN CORPUSCULAR VOLUME 84 FL (80-99); MONOCYTES % (AUTO) 11.4 % (1.0-10.0); NEUTROPHILS % (AUTO) 36.1 % (45.0-75.0); PLATELET COUNT 207 K/UL (150-450); RED CELL DISTRIBUTION WIDTH 11.7 % (11.6-14.8); WHITE BLOOD COUNT 5.3 K/UL (4.8-10.8)
[2018-03-07 09:14] LABS: ALANINE AMINOTRANSFERASE 17 U/L (12-78); ALBUMIN 2.8 G/DL (3.4-5.0); ALBUMIN/GLOBULIN RATIO 0.5 (1.0-2.7); ALKALINE PHOSPHATASE 49 U/L (46-116); ANION GAP 9 mmol/L (5-15); ASPARTATE AMINO TRANSFERASE 25 U/L (15-37); BILIRUBIN,TOTAL 0.2 MG/DL (0.2-1.0); BLOOD UREA NITROGEN 5 mg/dL (7-18); CALCIUM 9.2 MG/DL (8.5-10.1); CARBON DIOXIDE 27 MMOL/L (21-32); CHLORIDE 105 MMOL/L (98-107); PHOSPHORUS 3.9 MG/DL (2.5-4.9); POTASSIUM 3.8 MMOL/L (3.5-5.1); SODIUM 141 MMOL/L (136-145)
[2018-03-07] MEDS ORDERED: Morphine Sulfate 4mg/ml Inj (IV/IM USE ONLY) IVP PRN (09:30)
--- NOTE | 2018-03-07 10:56 | Discharge Instructions ---
Discharge Instructions Discharge Instructions Special Instructions Please call and followup with Dr Mcpherson in 5 days For Congestive Heart Failure Reminder Report to your physician any weight gain of 5 pounds or more in one week. Matias Bass MD Mar 07, 2018 10:56
--- NOTE | 2018-03-07 11:22 | General Surgery Progress Note ---
General Surgery-Progress Note Subjective Symptoms: tolerating diet, passing flatus, BM Additional Comments doing well. comfortable. no n/v/f/c. pain minimal Objective Last 24 Hour Vital Signs Date Time Temp Pulse Resp B/P (MAP) Pulse Ox O2 Delivery O2 Flow Rate FiO2 03/07/18 08:00 98.6 78 20 124/63 (83) 100 03/07/18 04:00 98.8 105 20 141/86 (104) 96 03/07/18 00:00 99.0 87 18 114/50 (71) 97 03/06/18 21:00 Room Air 03/06/18 16:00 98.4 85 20 115/72 (86) 98 03/06/18 15:56 98.0 03/06/18 12:00 98.0 81 18 120/78 (92) 98 I&O Intake and Output 03/06/18 03/07/18 19:00 07:00 Intake Total 1250 ml Output Total 22 ml Balance 1250 ml -22 ml IV Total 50 ml Other 1200 ml Other 22 ml # Voids 2 Drains: other Cardiovascular: RSR Respiratory: clear Abdomen: soft, flat, non-tender, present bowel sounds Extremities: no cyanosis Laboratory Tests Test 03/07/18 07:15 White Blood Count 5.3 K/UL (4.8-10.8) Red Blood Count 4.60 M/UL (4.20-5.40) Hemoglobin 12.6 G/DL (12.0-16.0) Hematocrit 38.7 % (37.0-47.0) Mean Corpuscular Volume 84 FL (80-99) Mean Corpuscular Hemoglobin 27.4 PG (27.0-31.0) Mean Corpuscular Hemoglobin Concent 32.5 G/DL (32.0-36.0) Red Cell Distribution Width 11.7 % (11.6-14.8) Platelet Count 207 K/UL (150-450) Mean Platelet Volume 9.3 FL (6.5-10.1) Neutrophils (%) (Auto) 36.1 % (45.0-75.0) L Lymphocytes (%) (Auto) 47.0 % (20.0-45.0) H Monocytes (%) (Auto) 11.4 % (1.0-10.0) H Eosinophils (%) (Auto) 4.1 % (0.0-3.0) H Basophils (%) (Auto) 1.4 % (0.0-2.0) Sodium Level 141 MMOL/L (136-145) Potassium Level 3.8 MMOL/L (3.5-5.1) Chloride Level 105 MMOL/L (98-107) Carbon Dioxide Level 27 MMOL/L (21-32) Anion Gap 9 mmol/L (5-15) Blood Urea Nitrogen 5 mg/dL (7-18) L Creatinine 1.0 MG/DL (0.55-1.30) Estimat Glomerular Filtration Rate > 60 mL/min (>60) Glucose Level 99 MG/DL (74-106) Calcium Level 9.2 MG/DL (8.5-10.1) Phosphorus Level 3.9 MG/DL (2.5-4.9) Magnesium Level 1.7 MG/DL (1.8-2.4) L Total Bilirubin 0.2 MG/DL (0.2-1.0) Aspartate Amino Transf (AST/SGOT) 25 U/L (15-37) Alanine Aminotransferase (ALT/SGPT) 17 U/L (12-78) Alkaline Phosphatase 49 U/L (46-116) Pro-B-Type Natriuretic Peptide 145 pg/mL (0-125) H Total Protein 7.9 G/DL (6.4-8.2) Albumin 2.8 G/DL (3.4-5.0) L Globulin 5.1 g/dL Albumin/Globulin Ratio 0.5 (1.0-2.7) L Plan Problems: (1) Intra-abdominal abscess Assessment & Plan: abscess from perforated sigmoid diverticulitis. as been ongoing for some time now and patient refused prior therapy. currently agreeable s/p IR drain placement doing well okay for diet d/c home with home health for drain care f/u with me in 1 week for drain eval and possible removal oral abx thank you (2) Diverticulitis large intestine William Mcpherson Mar 07, 2018 11:22
--- NOTE | 2018-03-07 11:32 | GI Progress Note ---
Assessment/Plan Problems: (1) Abscess of sigmoid colon due to diverticulitis ICD Codes: K57.20 - Diverticulitis of large intestine with perforation and abscess without bleeding SNOMED: 1049103857366181 (2) Intra-abdominal abscess ICD Codes: K65.1 - Peritoneal abscess SNOMED: 08731765 (3) Diverticulitis large intestine ICD Codes: K57.32 - Diverticulitis of large intestine without perforation or abscess without bleeding SNOMED: 9140962 Qualifiers: Qualified Codes: K57.20 - Diverticulitis of large intestine with perforation and abscess without bleeding Status: stable Status Narrative Discussed with Dr. Sylvester Assessment/Plan s/p CT guided abscess drainage iv abx fu labs colace fu surg recs pain control The patient was seen and examined at bedside and all new and available data was reviewed in the patients chart. I agree with the above findings, impression and plan. (Patient seen earlier today. Signature stamp does not reflect patient encounter time.). - Brandt Sylvester MD Subjective Subjective Had bowel movement this morning Objective Last 24 Hour Vital Signs Date Time Temp Pulse Resp B/P (MAP) Pulse Ox O2 Delivery O2 Flow Rate FiO2 03/07/18 08:00 98.6 78 20 124/63 (83) 100 03/07/18 04:00 98.8 105 20 141/86 (104) 96 03/07/18 00:00 99.0 87 18 114/50 (71) 97 03/06/18 21:00 Room Air 03/06/18 16:00 98.4 85 20 115/72 (86) 98 03/06/18 15:56 98.0 03/06/18 12:00 98.0 81 18 120/78 (92) 98 Intake and Output 03/06/18 03/07/18 19:00 07:00 Intake Total 1250 ml Output Total 22 ml Balance 1250 ml -22 ml IV Total 50 ml Other 1200 ml Other 22 ml # Voids 2 Laboratory Tests Test 03/07/18 07:15 White Blood Count 5.3 K/UL (4.8-10.8) Red Blood Count 4.60 M/UL (4.20-5.40) Hemoglobin 12.6 G/DL (12.0-16.0) Hematocrit 38.7 % (37.0-47.0) Mean Corpuscular Volume 84 FL (80-99) Mean Corpuscular Hemoglobin 27.4 PG (27.0-31.0) Mean Corpuscular Hemoglobin Concent 32.5 G/DL (32.0-36.0) Red Cell Distribution Width 11.7 % (11.6-14.8) Platelet Count 207 K/UL (150-450) Mean Platelet Volume 9.3 FL (6.5-10.1) Neutrophils (%) (Auto) 36.1 % (45.0-75.0) L Lymphocytes (%) (Auto) 47.0 % (20.0-45.0) H Monocytes (%) (Auto) 11.4 % (1.0-10.0) H Eosinophils (%) (Auto) 4.1 % (0.0-3.0) H Basophils (%) (Auto) 1.4 % (0.0-2.0) Sodium Level 141 MMOL/L (136-145) Potassium Level 3.8 MMOL/L (3.5-5.1) Chloride Level 105 MMOL/L (98-107) Carbon Dioxide Level 27 MMOL/L (21-32) Anion Gap 9 mmol/L (5-15) Blood Urea Nitrogen 5 mg/dL (7-18) L Creatinine 1.0 MG/DL (0.55-1.30) Estimat Glomerular Filtration Rate > 60 mL/min (>60) Glucose Level 99 MG/DL (74-106) Calcium Level 9.2 MG/DL (8.5-10.1) Phosphorus Level 3.9 MG/DL (2.5-4.9) Magnesium Level 1.7 MG/DL (1.8-2.4) L Total Bilirubin 0.2 MG/DL (0.2-1.0) Aspartate Amino Transf (AST/SGOT) 25 U/L (15-37) Alanine Aminotransferase (ALT/SGPT) 17 U/L (12-78) Alkaline Phosphatase 49 U/L (46-116) Pro-B-Type Natriuretic Peptide 145 pg/mL (0-125) H Total Protein 7.9 G/DL (6.4-8.2) Albumin 2.8 G/DL (3.4-5.0) L Globulin 5.1 g/dL Albumin/Globulin Ratio 0.5 (1.0-2.7) L Height (Feet): 5 Height (Inches): 7.00 Weight (Pounds): 251 General Appearance: WD/WN, no apparent distress, alert Cardiovascular: normal rate Respiratory/Chest: normal breath sounds, no respiratory distress Abdominal Exam: normal bowel sounds, non tender, soft Extremities: normal range of motion, non-tender Casey Concepcion NP Mar 07, 2018 11:32
[2018-03-07 12:00] VITALS: BP 122/71
--- NOTE | 2018-03-07 14:57 | Nephrology Progress Note ---
Assessment/Plan Problem List: (1) Diverticulitis large intestine (2) Hypokalemia (3) Hypomagnesemia Assessment Low K Low Mag Diverticulitis Plan change IV fluid Monitor lytes per consultants Subjective ROS Limited/Unobtainable: No Constitutional: Reports: malaise Objective Objective Last 24 Hour Vital Signs Date Time Temp Pulse Resp B/P (MAP) Pulse Ox O2 Delivery O2 Flow Rate FiO2 03/07/18 12:00 97.0 76 18 122/71 (88) 97 03/07/18 09:00 Room Air 03/07/18 08:00 98.6 78 20 124/63 (83) 100 03/07/18 04:00 98.8 105 20 141/86 (104) 96 03/07/18 00:00 99.0 87 18 114/50 (71) 97 03/06/18 21:00 Room Air 03/06/18 16:00 98.4 85 20 115/72 (86) 98 03/06/18 15:56 98.0 Intake and Output 03/06/18 03/07/18 19:00 07:00 Intake Total 1250 ml Output Total 22 ml Balance 1250 ml -22 ml IV Total 50 ml Other 1200 ml Other 22 ml # Voids 2 Laboratory Tests 03/07/18 07:15: White Blood Count 5.3, Red Blood Count 4.60, Hemoglobin 12.6, Hematocrit 38.7, Mean Corpuscular Volume 84, Mean Corpuscular Hemoglobin 27.4, Mean Corpuscular Hemoglobin Concent 32.5, Red Cell Distribution Width 11.7, Platelet Count 207, Mean Platelet Volume 9.3, Neutrophils (%) (Auto) 36.1L, Lymphocytes (%) (Auto) 47.0H, Monocytes (%) (Auto) 11.4H, Eosinophils (%) (Auto) 4.1H, Basophils (%) ( Auto) 1.4, Sodium Level 141, Potassium Level 3.8, Chloride Level 105, Carbon Dioxide Level 27, Anion Gap 9, Blood Urea Nitrogen 5L, Creatinine 1.0, Estimat Glomerular Filtration Rate > 60, Glucose Level 99, Calcium Level 9.2, Phosphorus Level 3.9, Magnesium Level 1.7L, Total Bilirubin 0.2, Aspartate Amino Transf (AST/SGOT) 25, Alanine Aminotransferase (ALT/SGPT) 17, Alkaline Phosphatase 49, Pro-B-Type Natriuretic Peptide 145H, Total Protein 7.9, Albumin 2.8L, Globulin 5.1, Albumin/Globulin Ratio 0.5L Height (Feet): 5 Height (Inches): 7.00 Weight (Pounds): 251 General Appearance: no apparent distress Objective no change Guero Waller MD Mar 07, 2018 14:57
--- NOTE | 2018-03-07 16:01 | Infectious Diseases Prog Note ---
Assessment/Plan Assessment/Plan Abx: ZOsyn 03/02- Flagyl 03/02- Assessment: Subacute sigmoid diverticulitis w/ microperforation c/w intraabdominal abscess -03/04 IR guided draange: Total 35 mL of bloody pus aspirated. -fluid WBC90k (N 95); cx anerobic cx neg -CT abd/p: 1. Colonic diverticulosis with segmental wall thickening of the distal sigmoid colon concerning for acute diverticulitis.5.6 x 5.5 x 4.4 cm peripherally enhancing air-fluid collection adjacent to the inflamed distal sigmoid colon, anterior to uterus, and superior to the urinary bladder, concerning for a contained perforation versus abscess. This is not significantly changed in size compared to the prior exam. Multilobulated fibroid uterus, with coarse calcifications. Low grade fever, SP No leuocytosis HTN asthma Plan: -Continue ZOsyn #6 for diverticulitis and abscess -upon discharge will transition to IV Ertapenem 1g daily to continue utnil (3 weeks from IR drainage); weekly CBC abd CMP -will need repeat imaging at the end of IV abx treatment to ensure resolution of abscess, if not resolved, then IV abx needs to be extended. -03/04 SP Flagyl #3 -f/u cx -Monitor CBC/CMP, temperatures -Aspiration precautions -Sx f/u Thank you for this consultation. Will continue to follow along with you. Discussed with RN. Subjective Allergies: Coded Allergies: No Known Allergies (Unverified , 03/17/16) Subjective afebrile >?72hrs anerobic cx neg Objective Vital Signs Last 24 Hour Vital Signs Date Time Temp Pulse Resp B/P (MAP) Pulse Ox O2 Delivery O2 Flow Rate FiO2 03/07/18 12:00 97.0 76 18 122/71 (88) 97 03/07/18 09:00 Room Air 03/07/18 08:00 98.6 78 20 124/63 (83) 100 03/07/18 04:00 98.8 105 20 141/86 (104) 96 03/07/18 00:00 99.0 87 18 114/50 (71) 97 03/06/18 21:00 Room Air 03/06/18 16:00 98.4 85 20 115/72 (86) 98 03/06/18 15:56 98.0 Height (Feet): 5 Height (Inches): 7.00 Weight (Pounds): 251 Objective Wound: clean Drains: other Cardiovascular: RSR Respiratory: clear Abdomen: soft, flat, tenderness, present bowel sounds Extremities: no tenderness, no cyanosis Laboratory Tests Test 03/07/18 07:15 White Blood Count 5.3 K/UL (4.8-10.8) Red Blood Count 4.60 M/UL (4.20-5.40) Hemoglobin 12.6 G/DL (12.0-16.0) Hematocrit 38.7 % (37.0-47.0) Mean Corpuscular Volume 84 FL (80-99) Mean Corpuscular Hemoglobin 27.4 PG (27.0-31.0) Mean Corpuscular Hemoglobin Concent 32.5 G/DL (32.0-36.0) Red Cell Distribution Width 11.7 % (11.6-14.8) Platelet Count 207 K/UL (150-450) Mean Platelet Volume 9.3 FL (6.5-10.1) Neutrophils (%) (Auto) 36.1 % (45.0-75.0) L Lymphocytes (%) (Auto) 47.0 % (20.0-45.0) H Monocytes (%) (Auto) 11.4 % (1.0-10.0) H Eosinophils (%) (Auto) 4.1 % (0.0-3.0) H Basophils (%) (Auto) 1.4 % (0.0-2.0) Sodium Level 141 MMOL/L (136-145) Potassium Level 3.8 MMOL/L (3.5-5.1) Chloride Level 105 MMOL/L (98-107) Carbon Dioxide Level 27 MMOL/L (21-32) Anion Gap 9 mmol/L (5-15) Blood Urea Nitrogen 5 mg/dL (7-18) L Creatinine 1.0 MG/DL (0.55-1.30) Estimat Glomerular Filtration Rate > 60 mL/min (>60) Glucose Level 99 MG/DL (74-106) Calcium Level 9.2 MG/DL (8.5-10.1) Phosphorus Level 3.9 MG/DL (2.5-4.9) Magnesium Level 1.7 MG/DL (1.8-2.4) L Total Bilirubin 0.2 MG/DL (0.2-1.0) Aspartate Amino Transf (AST/SGOT) 25 U/L (15-37) Alanine Aminotransferase (ALT/SGPT) 17 U/L (12-78) Alkaline Phosphatase 49 U/L (46-116) Pro-B-Type Natriuretic Peptide 145 pg/mL (0-125) H Total Protein 7.9 G/DL (6.4-8.2) Albumin 2.8 G/DL (3.4-5.0) L Globulin 5.1 g/dL Albumin/Globulin Ratio 0.5 (1.0-2.7) L Current Medications Medications (Trade) Dose Ordered Sig/Calos Route PRN Reason Start Time Stop Time Status Last Admin Dose Admin Acetaminophen (Tylenol) 650 mg Q6H PRN ORAL Mild Pain/Temp > 100.5 03/03/18 00:15 04/02/18 00:14 03/03/18 00:20 Acetaminophen/ Hydrocodone Bitart ([place] 10/325) 1 tab Q6H PRN ORAL for moderate pain (4-6) 03/03/18 00:45 03/10/18 00:44 03/04/18 22:34 Dextrose/ Electrolytes 1,000 ml @ 50 mls/hr Q20H IV 03/05/18 14:00 04/04/18 13:59 03/06/18 09:30 Docusate Sodium (Colace) 100 mg TID ORAL 03/05/18 18:00 04/02/18 08:59 03/07/18 13:06 Famotidine (Pepcid) 20 mg BID ORAL 03/05/18 13:30 04/04/18 13:29 03/07/18 08:15 Morphine Sulfate (Morphine Sulfate) 2 mg Q4H PRN IVP for severe pain (7-10) 03/07/18 09:30 03/09/18 20:44 03/07/18 11:03 Ondansetron HCl (Zofran) 4 mg Q6H PRN IVP Nausea & Vomiting 03/02/18 21:00 04/01/18 20:59 03/05/18 00:58 Piperacillin Sod/ Tazobactam Sod 3.375 gm/Dextrose 110 ml @ 27.5 mls/hr Q8H IVPB 03/03/18 16:00 03/10/18 15:59 03/07/18 08:13 Zolpidem Tartrate (Ambien) 5 mg HSPRN PRN ORAL Insomnia 03/07/18 00:53 03/14/18 00:52 03/07/18 01:21 Marlen Phillips M.D. Mar 07, 2018 16:01
[2018-03-07] MEDS ORDERED: Dyna-Hex 2% Top Sol 2oz TOPIC SCH (20:00)
--- NOTE | 2018-03-08 11:13 | Discharge Summary ---
Discharge Summary Discharge Summary _ DATE OF ADMISSION: 03/02/2018 DATE OF DISCHARGE: 03/07/2018 DISCHARGED BY: Dr. Volodymyr Bass CONSULTANTS: Dr. Hair Arriaza/Dr. Chele Rosenthal BRIEF HOSPITAL COURSE: Patient is a 57-year-old, who lives at home, presented to ED for complaints of abdominal pain, vomiting, diarrhea. Pain was 10 out of 10, in the lower abdomen , sharp, and nonradiating. She noted nausea and vomiting. Denied fever or chills. She was seen on February 19 for the same thing. She was noted to have a pelvic infection and was subsequently transferred to another hospital. She stated she was given IV antibiotics and was discharged home on antibiotics. Pain had gotten worse. She then presented to ED for further evaluation. On evaluation at ED, patient was tachycardic, heart rate 126. Blood work did not show any leukocytosis, hemoglobin and hematocrit were stable. Electrolytes were normal. CT of the abdomen and pelvis showed colonic diverticulosis with segmental wall thickening of the distal sigmoid colon concerning for acute diverticulitis. There was a 5.6 x 5.5 x 4.4 peripherally enhancing air-fluid collection adjacent to the inflamed distal sigmoid colon, anterior to uterus, superior to urinary bladder, concerning for a contained perforation versus abscess, not changed in size compared to prior exam. She was then admitted for evaluation of diverticulitis and pelvic abscess. She was placed on n.p.o. She was given IV fluids. Surgical evaluation was done. Abscess from perforated sigmoid diverticulitis has been ongoing for some time now and patient refused prior therapy. Due to current pain, patient now agreeable. Given pain management. She was seen by infectious disease specialist. Flagyl was discontinued. She was given Zosyn. She had low-grade fever that eventually resolved. On 03/04/2018, she underwent CT-guided aspiration and drainage of pelvic peridiverticular abscess. A total of 35 mL of bloody pus was aspirated. She tolerated procedure well with no complications. Diet was advanced. She was given electrolyte replacements. Drainage was serosanguineous. Abdominal abscess culture did not isolate any anaerobic growth. She was tolerating diet. She was cleared for discharge home to continue antibiotics. She was recommended need to repeat imaging at the end of antibiotic treatment to ensure resolution of abscess, if not resolved, then antibiotic needs to be extended. She was instructed on how to care for the drain. She was eventually discharged home with home health. FINAL DIAGNOSES: Diverticulitis of the large intestine with microperforation and abscess status post IR drainage Hypokalemia Hypertension Asthma DISPOSITION: Patient was discharged home with home health. DISCHARGE MEDICATIONS: Refer to Discharge Medication List. DISCHARGE INSTRUCTIONS: Follow-up with PCP in a week. Need to do repeat imaging at the end of antibiotic treatment. I have been assigned to dictate discharge summary on this account, and I was not involved in the patient's management. Donna Gtz NP Mar 08, 2018 11:13
== END 2018-03-07 15:59 | disposition home health service (06) | DRG 392 ==
LOC: EMR 15:25 → 3E 17:54 → EDBEDREQ 17:59 → 4E 03-05 12:45
PROC: 0W9G30Z Drainage of Peritoneal Cavity with Drainage Device, Percutaneous Approach (ICD-10-PCS; principal; 2018-03-04)
DX: K57.20 Diverticulitis of large intestine with perforation and abscess without bleeding (principal); E87.6 Hypokalemia; I10 Essential (primary) hypertension; J45.909 Unspecified asthma, uncomplicated; E83.42 Hypomagnesemia; T14.8XXA Other injury of unspecified body region, initial encounter; X58.XXXA Exposure to other specified factors, initial encounter; D25.9 Leiomyoma of uterus, unspecified
CPT/HCPCS: 36415; 74177; 75989; 80048; 80053; 80076; 81003; 81025; 83690; 83735; 83880; 84100; 85025; 85610; 85730; 86140; 87075; 87081; 89051; 96361; 96365; 96367; 96375; 97803; 99285; J2250; J2405; J8499

== ENCOUNTER 2018-05-30 11:19 | Emergency (ER) | payer MEDICARE ==
[~2018-05-30] VITALS: Ht 167.6 cm; Wt 106.1 kg
[~2018-05-30 11:19] MED LIST changes: +NORCO 10-325 T1 EACH ORAL
--- NOTE | 2018-05-30 11:33 | NUR ---
ED Nurse Note: PT WALKED IN TO ER TODAY FROM HOME. AOX4. PT C/O TINGLING AND TREMORS OF BILATERAL ARMS AND HANDS X 1 WEEK AGO. PT DENIES PAIN, DIZZINESS, NAUSEA, OR VOMITING. PT'S GAIT STEADY. BP: 112/58 WITH HR: 94.
[2018-05-30 11:34] VITALS: BP 112/58
--- NOTE | 2018-05-30 11:55 | NUR ---
ED Nurse Note: PT TO CT VIA ANANDA.
--- NOTE | 2018-05-30 12:15 | NUR ---
ED Nurse Note: PT BACK FROM CT VIA ANANDA.
[2018-05-30 12:34] LABS: BASOPHILS % (AUTO) 2.2 % (0.0-2.0); EOSINOPHILS % (AUTO) 2.5 % (0.0-3.0); HEMATOCRIT 45.2 % (37.0-47.0); HEMOGLOBIN 14.7 G/DL (12.0-16.0); LYMPHOCYTES % (AUTO) 41.5 % (20.0-45.0); MEAN CORPUSCULAR VOLUME 82 FL (80-99); MONOCYTES % (AUTO) 14.6 % (1.0-10.0); NEUTROPHILS % (AUTO) 39.2 % (45.0-75.0); PLATELET COUNT 185 K/UL (150-450); RED BLOOD COUNT 5.51 M/UL (4.20-5.40); RED CELL DISTRIBUTION WIDTH 12.4 % (11.6-14.8); WHITE BLOOD COUNT 4.2 K/UL (4.8-10.8)
--- NOTE | 2018-05-30 12:34 | Emergency Room Report ---
History of Present Illness General Chief Complaint: General Complaint Source: Patient Present Illness HPI Patient presents with several complaints Main complaint was right hand shaking and tremors however she also reports that her left hand at times has tremors She has been having a headache off and on for about several days Denies any chest pain denies any vomiting or diarrhea Patient reports problems with both of her knees and ambulating That seems to be somewhat of a chronic pathology denies any recent fall or trauma Allergies: Coded Allergies: No Known Allergies (Unverified , 03/17/16) Patient History Past Medical History: see triage record Pertinent Family History: none Last Menstrual Period: na Reviewed Nursing Documentation: PMH: Agreed; PSxH: Agreed Nursing Documentation-PMH Past Medical History: No History, Except For Hx Hypertension: Yes Hx Asthma: Yes Hx Neurological Problems: No Review of Systems All Other Systems: negative except mentioned in HPI Physical Exam Vital Signs Date Time Temp Pulse Resp B/P (MAP) Pulse Ox O2 Delivery O2 Flow Rate FiO2 05/30/18 11:20 97.9 100 20 128/83 97 Room Air Sp02 EP Interpretation: reviewed, normal General Appearance: well appearing, no apparent distress Head: normocephalic, atraumatic Eyes: bilateral eye PERRL, bilateral eye EOMI ENT: hearing grossly normal, normal pharynx, TMs + canals normal, uvula midline Neck: full range of motion, supple, no meningismus, no bony tend Respiratory: lungs clear, normal breath sounds, no rhonchi, no respiratory distress, no retraction, no accessory muscle use Cardiovascular #1: normal peripheral pulses, regular rate, rhythm, no edema, no gallop, no JVD, no murmur Gastrointestinal: normal bowel sounds, non tender, soft, no mass, no organomegaly, non-distended, no guarding, no hernia, no pulsatile mass, no rebound Genitourinary: no CVA tenderness Musculoskeletal: other - Some mild essential tremor on the right hand no obvious weakness however Neurologic: oriented x3, responsive, 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 nml as tested, motor strength/ tone normal, sensory intact Psychiatric: mood/affect normal Skin: normal color, no rash, warm/dry, palpation normal Lymphatic: normal inspection, no adenopathy Medical Decision Making Diagnostic Impression: Primary Impression: Encounter for generalized patient complaints Additional Impressions: Tremor of right hand Dizzy ER Course Patient is a fairly complex patient with multiple differential to consideration including but not limited to cardiac cardiopulmonary, intracranial, neurological and vascular emergencies CT imaging does not show any acute pathology Given the patient's complaints of weakness along with dizziness Given the patient's comorbidities she requires further inpatient care and evaluation Patient is requested for transfer secondary to insurance purposes Labs Test 05/30/18 11:56 White Blood Count 4.2 K/UL (4.8-10.8) Red Blood Count 5.51 M/UL (4.20-5.40) Hemoglobin 14.7 G/DL (12.0-16.0) Hematocrit 45.2 % (37.0-47.0) Mean Corpuscular Volume 82 FL (80-99) Mean Corpuscular Hemoglobin 26.7 PG (27.0-31.0) Mean Corpuscular Hemoglobin Concent 32.6 G/DL (32.0-36.0) Red Cell Distribution Width 12.4 % (11.6-14.8) Platelet Count 185 K/UL (150-450) Mean Platelet Volume 10.7 FL (6.5-10.1) Neutrophils (%) (Auto) 39.2 % (45.0-75.0) Lymphocytes (%) (Auto) 41.5 % (20.0-45.0) Monocytes (%) (Auto) 14.6 % (1.0-10.0) Eosinophils (%) (Auto) 2.5 % (0.0-3.0) Basophils (%) (Auto) 2.2 % (0.0-2.0) Prothrombin Time 10.5 SEC (9.30-11.50) Prothromb Time International Ratio 1.0 (0.9-1.1) Activated Partial Thromboplast Time 27 SEC (23-33) Sodium Level 142 MMOL/L (136-145) Potassium Level 4.5 MMOL/L (3.5-5.1) Chloride Level 107 MMOL/L (98-107) Carbon Dioxide Level 26 MMOL/L (21-32) Anion Gap 10 mmol/L (5-15) Blood Urea Nitrogen 19 mg/dL (7-18) Creatinine 1.2 MG/DL (0.55-1.30) Estimat Glomerular Filtration Rate 55.8 mL/min (>60) Glucose Level 89 MG/DL (74-106) Calcium Level 9.0 MG/DL (8.5-10.1) Total Bilirubin 0.3 MG/DL (0.2-1.0) Aspartate Amino Transf (AST/SGOT) 29 U/L (15-37) Alanine Aminotransferase (ALT/SGPT) 33 U/L (12-78) Alkaline Phosphatase 80 U/L (46-116) Total Creatine Kinase 47 U/L (26-308) Creatine Kinase MB < 0.5 NG/ML (0.0-3.6) Creatine Kinase MB Relative Index Troponin I 0.000 ng/mL (0.000-0.056) Total Protein 8.4 G/DL (6.4-8.2) Albumin 3.6 G/DL (3.4-5.0) Globulin 4.8 g/dL Albumin/Globulin Ratio 0.8 (1.0-2.7) Rhythm Strip Diag. Results EP Interpretation: yes Rate: 88 Rhythm: NSR, no PVC's, no ectopy Chest X-Ray Diagnostic Results Chest X-Ray Diagnostic Results : Chest X-Ray Ordered: Yes # of Views/Limited/Complete: 1 View Indication: Chest Pain EP Interpretation: Yes Interpretation: no consolidation, no effusion, no pneumothorax Impression: No acute disease Electronically Signed by: Nohemi Martinez DO CT/MRI/US Diagnostic Results CT/MRI/US Diagnostic Results : Impression CT headImpression: No mass effect, edema or acute bleed. Last Vital Signs Date Time Temp Pulse Resp B/P (MAP) Pulse Ox O2 Delivery O2 Flow Rate FiO2 05/30/18 11:34 98.1 94 18 112/58 96 Room Air Status: improved Disposition: XFER SHT-TRM HOSP Condition: Improved Referrals: [facility],REFERRING (PCP) Nohemi Martinez DO May 30, 2018 12:34
--- NOTE | 2018-05-30 12:40 | Diagnostic Imaging Report ---
Indication: Altered mental status Technique: Contiguous 5 mm thick transaxial imaging of the head obtained in a Siemens Sensation [address] scanner. Soft tissue and bone windows generated. Automatic Exposure Control was utilized. Total Dose length Product (DLP): 1319.[address] Dose Index Volume (CTDIvol): 70.38 mGy Comparison: none Findings: The size and configuration of the cortical sulci, basal cisterns, and ventricles are within normal limits for age. There is no mass effect, midline shift, or edema identified. There is no evidence of acute hemorrhage or abnormal intra-axial or extra-axial fluid collections. The bones and soft tissues are unremarkable. Impression: No mass effect, edema or acute bleed. The CT scanner at [facility] is accredited by the [employer] and the scans are performed using dose optimization techniques as appropriate to a performed exam including Automatic Exposure control.
--- NOTE | 2018-05-30 12:41 | Diagnostic Imaging Report ---
Indication: Chest pain Comparison: 02/05/2018 A single view chest radiograph was obtained. Findings: Cardiomediastinal appearance is within normal limits for age. The lungs are clear. Pulmonary vascularity is appropriate. The diaphragmatic contour is smooth and costophrenic angles are sharp. No pleural effusions are identified. The bones are unremarkable. Impression: No acute findings
[2018-05-30 12:50] LABS: ANION GAP 10 mmol/L (5-15); BLOOD UREA NITROGEN 19 mg/dL (7-18); CARBON DIOXIDE 26 MMOL/L (21-32); CHLORIDE 107 MMOL/L (98-107); CREATININE 1.2 MG/DL (0.55-1.30); POTASSIUM 4.5 MMOL/L (3.5-5.1); SODIUM 142 MMOL/L (136-145)
[2018-05-30 13:03] LABS: ALANINE AMINOTRANSFERASE 33 U/L (12-78); ALBUMIN 3.6 G/DL (3.4-5.0); ALBUMIN/GLOBULIN RATIO 0.8 (1.0-2.7); ALKALINE PHOSPHATASE 80 U/L (46-116); ASPARTATE AMINO TRANSFERASE 29 U/L (15-37); BILIRUBIN,TOTAL 0.3 MG/DL (0.2-1.0); CKMB < 0.5 NG/ML (0.0-3.6); CREATINE KINASE 47 U/L (26-308)
[2018-05-30 13:34] VITALS: BP 134/90
[2018-05-30 15:34] VITALS: BP 126/82
--- NOTE | 2018-05-30 16:30 | NUR ---
ED Nurse Note: FOOD TRAY PROVIDED FOR PT.
--- NOTE | 2018-05-30 17:26 | NUR ---
ED Nurse Note: [facility] CALLED FOR REPORT. REPORT GIVEN TO ARMANI PÉREZ. RECEIVING RN AWARE OF 1830 ETA FOR [employer].
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
[2018-05-30 17:34] VITALS: BP 122/84
--- NOTE | 2018-05-30 19:15 | NUR ---
ED Nurse Note: REPORT GIVEN TO ARMANI ADAMS.
--- NOTE | 2018-05-30 19:30 | NUR ---
ED Nurse Note: RECIEVED REPORT TOR ESUME CARE, PT IN BED RESTING QUIETLY, ON CARDIAC MONITORING, DENIES PAIN OR ANY CHANGES AT THIS TIME, IV SITE PATENT, PT WAITING FOR AMBULANCE TRANSPORT FOR TRANSFER, WILL RSUME CARE AND CONTINUE TO CLOSELY MONITOR WHILE WAITING FOR AMBULANCE.
[2018-05-30 20:15] VITALS: BP 129/77
--- NOTE | 2018-05-30 20:32 | NUR ---
ED Nurse Note: [id number], HAS ARRIVED FOR TRANSPORT, [facility] PT IS AWAKE, ALERT AND ORIENTED X 4, NO PAIN OR DISTRESS NOTED, IV SITE PATENT, PT HAS ALL BELONGINGS, NAD NOTED DURING PT TRANSPORT.
[2018-05-30 20:34] VITALS: BP 129/77
--- NOTE | 2018-05-31 04:36 | Consultation ---
DATE OF CONSULTATION: 05/30/2018 INTERNAL MEDICINE CONSULTATION CONSULTING PHYSICIAN: Matias Bass M.D. I have been asked to evaluate the patient and recommend either admission or discharge based on clinical criteria. I have been contacted by Dr. Juan Dr. and also by insurance of [facility]. The patient is a 57-year-old female that I have seen previously. She came to the hospital with multiple complaints. Mostly having tremors, headaches, feeling unwell, and difficulty ambulation. The patient was seen and worked up in the ER and a complete workup was done, which was negative. PAST HISTORY: Discussed above. ALLERGIES: None. PHYSICAL EXAMINATION: Per ER MD is normal. LABORATORY TESTING: Reviewed personally is unremarkable. IMPRESSION: Nonspecific complaint. DISCUSSION: In my opinion, the patient can be discharged home. However, per my discussion with , he reports that her primary care physician is insisting on admission at this point. Since she is stable and her primary care is requesting admission, discharged and transferred to a contracted facility. I have already contacted the on-call lining caser for [facility] and advised them of my opinion. Matias Bass M.D. DR: EFRAÍN JOB#: [id number] CC:
--- NOTE | 2018-06-01 20:24 | Cardiology Report ---
APPROVED REPORT EKG Measurement Heart [id number] Normal sinus rhythm Possible Left atrial enlargement Left ventricular hypertrophy Possible Lateral infarct, age undetermined Abnormal ECG
== END 2018-05-30 20:36 | disposition short-term general hospital (02) ==
LOC: EMR 12:27
DX: R25.1 Tremor, unspecified (principal); R42 Dizziness and giddiness; I10 Essential (primary) hypertension; J45.909 Unspecified asthma, uncomplicated
CPT/HCPCS: 36415; 70450; 71045; 80053; 82550; 82553; 84484; 85025; 85610; 85730; 93005; 99285

== ENCOUNTER 2019-11-10 19:01 | Emergency (ER) | payer MEDICARE, OTHER ==
[~2019-11-10] VITALS: Ht 167.6 cm; Wt 117.9 kg
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
--- NOTE | 2019-11-10 19:18 | NUR ---
ED Nurse Note: [employer] at bedside
[2019-11-10 19:28] VITALS: BP 130/100
[2019-11-10] MEDS ORDERED: Ketorolac 60mg Inj IM ONE (19:30)
[2019-11-10] MEDS ORDERED: Acetaminophen 500mg (ES) tab ORAL ONE (19:30)
--- NOTE | 2019-11-10 19:39 | NUR ---
ED Nurse Note: pt to xray
--- NOTE | 2019-11-10 19:49 | NUR ---
ED Nurse Note: Pt back from xray
[2019-11-10] MEDS ORDERED: VALIUM5 MG ORAL (20:13)
[2019-11-10] MEDS ORDERED: IBUPROFEN600 M1 ORAL (20:13)
[2019-11-10] MEDS ORDERED: LIDODERM700 M1 TOPIC (20:25)
[2019-11-10 20:40] VITALS: BP 125/98
--- NOTE | 2019-11-10 20:40 | NUR ---
ER DISCHARGE NOTE: Patient is cleared to be discharged per ERMD, pt is aox4, on room air, with stable vital signs. pt was given dc and prescription instructions, pt was able to verbalize understanding, pt id band removed. pt is able to ambulate with steady gait. pt took all belongings.
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
== END 2019-11-10 20:40 | disposition home or self-care (01) ==
LOC: EDBD 19:01 → EMR 19:40
DX: T14.8XXA Other injury of unspecified body region, initial encounter (principal); V43.52XA Car driver injured in collision with other type car in traffic accident, initial encounter; Y92.410 Unspecified street and highway as the place of occurrence of the external cause; I10 Essential (primary) hypertension; M54.5 Low back pain
CPT/HCPCS: 72020; 72170; 96372; 99284

== ENCOUNTER 2020-01-17 14:45 | Emergency (ER) | payer OTHER ==
[~2020-01-17] VITALS: Ht 167.6 cm; Wt 116.1 kg
[~2020-01-17 14:45] MED LIST changes: +IBUPROFEN600 M1 ORAL; +LIDODERM700 M1 TOPIC; +VALIUM5 MG ORAL
[2020-01-17 14:59] VITALS: BP 117/72
--- NOTE | 2020-01-17 15:01 | NUR ---
ED Nurse Note:pt. came with left neck swelling and itching , possible allergy to unknown cause
--- NOTE | 2020-01-17 15:11 | Emergency Room Report ---
History of Present Illness General Chief Complaint: Allergic Reaction Source: Patient Present Illness HPI 59-year-old female with history of hep C currently taking any medication here complaining of painful and pruritic mass on the left side of neck that she just noticed yesterday after starting the medication. A hard nonmobile mass noted left lateral neck. Patient also complains of pruritus in chest however denies anaphylaxis and throat closing. Denies chest pain or shortness of breath, headache and dizziness. Has not taken medication for symptom relief. Denies fever and chills. Appears to be stable with stable vital signs. 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 COVID-19 Screening: Negative COVID-19 COVID-19 Testing Source: [facility] Patient History Past Medical History: see triage record Past Surgical History: none Pertinent Family History: none Now: No Immunizations: UTD Reviewed Nursing Documentation: PMH: Agreed; PSxH: Agreed Nursing Documentation-PMH Hx Hypertension: Yes Hx Asthma: Yes Hx Neurological Problems: No Review of Systems All Other Systems: negative except mentioned in HPI Physical Exam Vital Signs Date Time Temp Pulse Resp B/P (MAP) Pulse Ox O2 Delivery O2 Flow Rate FiO2 01/17/20 14:46 97.9 95 19 117/72 (87) 98 Room Air Sp02 EP Interpretation: reviewed, normal General Appearance: no apparent distress, alert, GCS 15, non-toxic Head: normocephalic, atraumatic Eyes: bilateral eye normal inspection, bilateral eye PERRL ENT: hearing grossly normal, normal pharynx, no angioedema, normal voice, other - Airway patent Neck: supple, no meningismus, no bony tend, other - Normal while hard large mass noted left lateral neck Respiratory: chest non-tender, lungs clear, normal breath sounds, speaking full sentences Cardiovascular #1: regular rate, rhythm, no edema Cardiovascular #2: 2+ carotid (R), 2+ carotid (L), 2+ radial (R), 2+ radial (L), 2+ dorsalis pedis (R), 2+ dorsalis pedis (L) Gastrointestinal: normal bowel sounds, non tender, soft, non-distended, no guarding, no rebound Rectal: deferred Genitourinary: no CVA tenderness Musculoskeletal: back normal Neurologic: alert, motor strength/tone normal, oriented x3, sensory intact, res ponsive, speech normal Psychiatric: judgement/insight normal, memory normal, mood/affect normal, no suicidal/homicidal ideation Skin: no rash Lymphatic: adenopathy - Left cervical Medical Decision Making PA Attestation All diagnoses and treatment plans were reviewed and discussed with my supervising physician Dr. Wright Diagnostic Impression: Primary Impression: Lymphedema Additional Impression: Allergic reaction ER Course 59-year-old female with history of hep C currently taking any medication here complaining of painful and pruritic mass on the left side of neck that she just noticed yesterday after starting the medication. A hard nonmobile mass noted left lateral neck. Patient also complains of pruritus in chest however denies anaphylaxis and throat closing. Denies chest pain or shortness of breath, headache and dizziness. Has not taken medication for symptom relief. Denies fever and chills. Appears to be stable with stable vital signs. Ddx considered but are not limited to :, Lymphadenopathy,, lymphedema, malignancy, benign mass Vital signs: are WNL, pt. is afebrile H&PE are most consistent with: Lymphedema, allergic reaction ORDERS: CBC, CMP, UA, CT neck with contrast, prednisone, hydrocortisone cream ED INTERVENTIONS: Dexamethasone DISCHARGE: At this time pt. is stable for d/c to home. Will provide printed patient care instructions, and any necessary prescriptions. Care plan and follow up instructions have been discussed with the patient prior to discharge. Take medication as directed, follow primary care provider, discussed with your prescriber regarding hepatitis C medication in order to discuss the continuation or discontinuation of this medication. If worsening symptoms r eturn to the emergency room CT/MRI/US Diagnostic Results CT/MRI/US Diagnostic Results : Imaging Test Ordered: CT neck soft tissue w/ contrast Impression COMPARISON: No relevant prior studies available. FINDINGS: Brain: No discrete mass identified. Oropharynx: Unremarkable. No tonsillar enlargement. No peritonsillar abscess. Hypopharynx: Unremarkable. Larynx: Unremarkable. Normal epiglottis. Trachea: Unremarkable. Retropharyngeal space: Unremarkable. Submandibular/parotid glands: Unremarkable. Thyroid: Unremarkable. No enlarged or calcified nodules. Bones/joints: No acute fracture. Soft tissues: Soft tissue edema or inflammation in the anterior chest wall area, partially visualized. Vasculature: Diminutive left vertebral artery, difficult to assess and confirm patency. Lymph nodes: No enlarged lymph nodes. Lung apices: Unremarkable as visualized. IMPRESSION: 1. No discrete mass identified. Last Vital Signs Date Time Temp Pulse Resp B/P (MAP) Pulse Ox O2 Delivery O2 Flow Rate FiO2 01/17/20 14:59 97.9 95 19 117/72 98 Room Air Disposition: HOME, SELF-CARE Condition: Stable Patient Instructions: Drug Allergy, Lymphedema Additional Instructions: Take medication as directed, follow primary care provider, discussed with your prescriber regarding hepatitis C medication in order to discuss the continuation or discontinuation of this medication. If worsening symptoms return to the emergency room Rodolfo Carlson Jan 17, 2020 15:11
[2020-01-17] MEDS ORDERED: Omnipaque-300 100ml vial INJ PRN (15:15)
--- NOTE | 2020-01-17 15:21 | NUR ---
ED Nurse Note:blood and urine sent to labs, given iv med
[2020-01-17 15:41] LABS: BASOPHILS % (AUTO) 1.9 % (0.0-2.0); EOSINOPHILS % (AUTO) 3.4 % (0.0-3.0); HEMATOCRIT 42.5 % (37.0-47.0); HEMOGLOBIN 14.4 G/DL (12.0-16.0); LYMPHOCYTES % (AUTO) 36.3 % (20.0-45.0); MEAN CORPUSCULAR VOLUME 82 FL (80-99); MONOCYTES % (AUTO) 10.9 % (1.0-10.0); NEUTROPHILS % (AUTO) 47.6 % (45.0-75.0); PLATELET COUNT 183 K/UL (150-450); RED BLOOD COUNT 5.17 M/UL (4.20-5.40); RED CELL DISTRIBUTION WIDTH 11.4 % (11.6-14.8); WHITE BLOOD COUNT 6.4 K/UL (4.8-10.8)
[2020-01-17 15:50] LABS: APPEARANCE,URINE SLIGHTLY CLOUDY; COLOR,URINE YELLOW
[2020-01-17 15:51] LABS: BILIRUBIN, URINE NEGATIVE (NEGATIVE); GLUCOSE, URINE (UA) NEGATIVE (NEGATIVE); KETONES,URINE NEGATIVE (NEGATIVE); LEUKOCYTE ESTERASE ,URINE 3+ (NEGATIVE); NITRITE,URINE NEGATIVE (NEGATIVE); PROTEIN,URINE NEGATIVE (NEGATIVE); UROBILINOGEN,URINE NORMAL MG/DL (0.0-1.0)
[2020-01-17 15:55] LABS: ALANINE AMINOTRANSFERASE 15 U/L (12-78); ALBUMIN 3.7 G/DL (3.4-5.0); ALBUMIN/GLOBULIN RATIO 0.9 (1.0-2.7); ALKALINE PHOSPHATASE 88 U/L (46-116); ASPARTATE AMINO TRANSFERASE 17 U/L (15-37); BILIRUBIN,TOTAL 0.3 MG/DL (0.2-1.0); BLOOD UREA NITROGEN 18 mg/dL (7-18); CALCIUM 8.6 MG/DL (8.5-10.1); CARBON DIOXIDE 24 MMOL/L (21-32); CHLORIDE 106 MMOL/L (98-107); CREATININE 1.2 MG/DL (0.55-1.30); POTASSIUM 3.8 MMOL/L (3.5-5.1); SODIUM 139 MMOL/L (136-145)
--- NOTE | 2020-01-17 16:18 | NUR ---
ED Nurse Note:pt. went to CT scan
--- NOTE | 2020-01-17 17:27 | Diagnostic Imaging Report ---
EXAM: CT Neck With Intravenous Contrast CLINICAL HISTORY: MASS AND SWELLING OF LEFT SIDE OF NECK TECHNIQUE: Axial computed tomography images of the neck with intravenous contrast. CTDI is 158.8 mGy and DLP is 462 mGy-cm. One or more of the following dose reduction techniques were used: automated exposure control, adjustment of the mA and/or kV according to patient size, use of iterative reconstruction technique. COMPARISON: No relevant prior studies available. FINDINGS: Brain: No discrete mass identified. Oropharynx: Unremarkable. No tonsillar enlargement. No peritonsillar abscess. Hypopharynx: Unremarkable. Larynx: Unremarkable. Normal epiglottis. Trachea: Unremarkable. Retropharyngeal space: Unremarkable. Submandibular/parotid glands: Unremarkable. Thyroid: Unremarkable. No enlarged or calcified nodules. Bones/joints: No acute fracture. Soft tissues: Soft tissue edema or inflammation in the anterior chest wall area, partially visualized. Vasculature: Diminutive left vertebral artery, difficult to assess and confirm patency. Lymph nodes: No enlarged lymph nodes. Lung apices: Unremarkable as visualized. IMPRESSION: 1. No discrete mass identified. 2. Soft tissue edema or inflammation in the anterior chest wall area, partially visualized.
[2020-01-17] MEDS ORDERED: HYDROCORTISON28.4 G6 TP (17:35)
[2020-01-17] MEDS ORDERED: PREDNISONE20 MG ORAL (17:35)
[2020-01-17 17:50] VITALS: BP 117/72
--- NOTE | 2020-01-17 17:50 | NUR ---
ER DISCHARGE NOTE: Patient is cleared to be discharged per ERMD, pt is aox4, on room air, with stable vital signs. pt was given dc and prescription instructions, pt was able to verbalize understanding, pt id band and iv site removed without complications. pt is able to ambulate with steady gait. pt took all belongings.
--- NOTE | 2020-01-17 18:30 | NUR ---
ED Nurse Note:pt. left her cell phone in ER, couldn't notify pt. because we have only her cell number on file
--- NOTE | 2020-01-17 19:20 | NUR ---
Patient came back , her cell phone given to her personally. Very thankful.
== END 2020-01-17 17:50 | disposition home or self-care (01) ==
LOC: EMR 15:15
DX: I89.0 Lymphedema, not elsewhere classified (principal); T78.40XA Allergy, unspecified, initial encounter; X58.XXXA Exposure to other specified factors, initial encounter; I10 Essential (primary) hypertension; J45.909 Unspecified asthma, uncomplicated
CPT/HCPCS: 36415; 70491; 80053; 81003; 85025; 87086; 96374; 99284; J1100; Q9967